=== PATIENT | female | born 1950 | race Caucasian/White ===

== ENCOUNTER → 2018-06-06 10:32 | Outpatient (BNVA) | payer MEDICARE, MEDICAID, SELFPAY | PROVIDERS: PCP Family Medicine; Referring Provider Family Medicine; Visit Provider Orthopaedic Surgery | DX: M70.61 Trochanteric bursitis, right hip (principal); M70.62 Trochanteric bursitis, left hip | CPT/HCPCS: 20610; 99211; 99212; J1040 ==

== ENCOUNTER 2018-06-07 12:35 | Outpatient (REF) | payer MEDICARE, MEDICAID, SELFPAY ==
[2018-06-07 20:07] LABS: HCT 41.1 % (36.0-46.0); HGB 13.5 g/dL (12.0-15.5); Mean Corp. HGB Concentration 32.8 g/dL (32.0-36.0); Mean Corpuscular Hemoglobin 28.9 pg (27.0-33.0); Mean Platelet Volume 10.5 fL (8.0-11.0); Platelet Count 286 x1000/uL (130-400); RBC 4.67 m/cumm (4.00-5.20); RBC Distribution Width 13.6 % (11.7-14.6); White Blood Cell Count 10.01 k/cumm (4.4-10.8)
[2018-06-07 20:18] LABS: ALT 31 U/L (12-78); AST 15 U/L (15-37); Albumin 3.3 g/dL (3.4-5.0); Alkaline Phosphatase 183 U/L (46-116); Anion Gap 9.3 mmol/L (3-11); BUN 19 mg/dL (7-18); Bilirubin, Total 0.5 mg/dL (0.2-1.0); CO2 30.7 mmol/L (21.0-32.0); CREATININE 1.11 mg/dL (0.55-1.02); Calcium 9.4 mg/dL (8.5-10.1); Chloride 98 mmol/L (98-107); Cholesterol 211 mg/dL (50-200); Estimated GFR 48.74 (mL/min/1.73m2); Glucose 376 mg/dL (70-100); HDL Cholesterol 49 mg/dL (40-60); LDL CHOLESTEROL 122 mg/dL (<100); Potassium 4.3 mmol/L (3.5-5.1); Sodium 138 mmol/L (136-145); Total Protein 6.9 g/dL (6.4-8.2); Triglyceride 281 mg/dL (30-150)
== END 2018-06-07 12:55 ==
LOC: NCHCN 12:35
PROVIDERS: PCP Family Medicine; Visit Provider Family Medicine
DX: E11.9 Type 2 diabetes mellitus without complications (principal); E78.5 Hyperlipidemia, unspecified; I10 Essential (primary) hypertension
CPT/HCPCS: 80053; 80061; 83721; 85027

== ENCOUNTER 2018-12-29 11:58 | Emergency (ER) | payer MEDICARE, MEDICAID, SELFPAY ==
[2018-12-29 12:00] VITALS: BP 143/101; PULSE 101; RESP 20; TEMP 36.1; O2SAT 96
[2018-12-29 12:11] VITALS: RESP 20
--- NOTE | 2018-12-29 12:35 | W.ED.GENAD ---
Discharge Plan Disposition Patient Disposition: HOME Condition: Good Discharge Details Chief Complaint: Anxiety Clinical Impression: Anxiety Primary Care Provider: Elke Jansen V ED Provider: Fouzia Aburto Home Meds and New Rx's Prescriptions: Continued furosemide [Lasix] 40 MG tablet 40 mg PO DAILY RF: 0 potassium chloride 10 MEQ capsule, extended release 20 meq PO DAILY RF: 0 glyburide 5 MG tablet 10 mg PO BID RF: 0 (DME) FreeStyle Test 1 EACH strip 1 ea Miscellaneous TID RF: 0 gabapentin [Neurontin] 300 MG capsule 600 mg PO QID RF: 0 albuterol sulfate 8.5 GM HFA aerosol inhaler 2 puff Inhalation Q4H PRN RF: 0 cholecalciferol (vitamin D3) 1,000 UNIT capsule 1,000 unit PO TID RF: 0 nystatin (bulk) 1 EACH powder 1 ea Miscellaneous TID RF: 0 (DME) lancets [FreeStyle Lancets] 1 EACH misc 1 ea Miscellaneous TID RF: 0 SPACER RF: 0 TEDS DAILY RF: 0 fexofenadine [Ellie Allergy] 180 MG tablet 180 mg PO DAILY RF: 0 (DME) Freestyle In[employer]x Test Strips 1 EACH strip 1 ea Miscellaneous TID RF: 0 DIABETIC SHOES RF: 0 losartan 50 mg Tablet 50 mg PO DAILY RF: 0 cyclobenzaprine 10 mg Tablet 10 mg PO TID PRNRF: 0 nortriptyline 10 mg Capsule 10 mg PO QHS RF: 0 omeprazole 20 mg Capsule,Delayed Release(Dr/Ec) 20 mg PO DAILY RF: 0 ibuprofen 600 mg Tablet 600 mg PO TID PRNRF: 0 escitalopram oxalate 20 mg Tablet 30 mg PO DAILY RF: 0 pregabalin [Lyrica] 150 mg Capsule 150 mg PO TID RF: 0 Lantus Solostar U-100 Insulin 100 unit/mL (3 mL) Insulin Pen 10 unit SUBCUT DAILY RF: 0 Tradjenta 5 mg Tablet 5 mg PO DAILY RF: 0 memantine [Namenda XR] 7 mg Capsule,Sprinkle,Er 24hr 7 mg PO DAILY RF: 0 lidocaine HCl [Lidocaine Plus] 4 % Cream 1 applic topical QID PRN PRNRF: 0 No Action lorazepam 0.5 mg Tablet 0.5 mg PO BID PRNRF: 0 Discharge Instructions Instructions: Anxiety (ED) Additional Instructions: Encourage hydration. Take your medications as previously prescribed by primary care physician. Please follow up with primary care this week for reevaluation and to discuss your medications and anxiety. Please call [facility] tomorrow to discuss counseling services further. You need to ask for help and support of your family. You need help to renew your license, get to upcoming appointments, have someone remind you of your medications daily. If you develop new/worsening symptoms please seek care urgently once again. Referrals: Elke Jansen MD [Primary Care Provider] - Medical Decision Making Patient is a 68 year old female, brought in via EMS, with c/c of anxiety. States she has had increased anxiety for quite some time, associates with becoming ill and going into assisted living home. Patient denies SI or HI. States that she is safe at home. Feels overwhelmed. Has 3 children that area ll teenage that she has adopted. Expresses concerns and stresses around all of these children. Feels well physically. Denies financial stressors. Reports good family support. 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 On exam, patient is tearing, appears anxious. She is obese but otherwise PE unremarkable. Patient given 1mg po ativan. Patient evaluated by MH. They advised counseling, she has not gone to counseling in several years. Have referred. Gave information for the [facility]. Family is here and is concerned that the patient has had increased confusion. Reviewed PCP notes, patient has not been seen since May. Family seems very supportive. MH, patient and I feel that she is safe for discharge home. However, family and patient was given strict instructions. Daughter plans to spend tomorrow with the patient to help arrange f/u with counselor, arrange f/u with PCP, contact the center [facility], review her medication dispensing box, set up method for the patient to remember her medications on a daily basis. I discussed with the patient that her medications would likely help greatly with her symptoms. She was given return precautions. Discharged home with her daughter. All of her questions and concerns were addressed, she is in agreement with this plan. HPI General Mode of arrival: EMS. Date/Time Provider Initiated Documentation: 12/29/18 12:19. Limitations to Documentation: no limitations. Information obtained by: patient, family, EMS and RN notes reviewed. HPI Narrative: Patient is a 68 year old female, brought in via EMS, with c/c of anxiety. EMS was initially called shortness of breath. Patient is female. She does endorse anxiety. Has known history of depression. She reports that her is currently missing care at [facility] for end-stage cancer. She has 3 teenage children that she has adopted. She describes a large amount of stress and anxiety around Caring for these children, 1 of whom is learning disabled and poor communication. She reports that the past few days, her anxiety has really increased. She denies any thoughts of self-harm. Reports feeling well physically at this time. Denies any chest pain. No shortness of breath. Denies any abdominal discomfort. No nausea vomiting. No change in bowel or bladder habits. Has not attempted to next visit historically, has not been hospitalized for this. Does state that she has not been taking her meds seems to be linked to her anxiety and affect. Related Data Home Medications Medication Instructions Recorded Confirmed FreeStyle Test strip 11/06/13 06/06/18 Spacer 11/06/13 06/06/18 Teds DAILY 11/06/13 06/06/18 albuterol sulfate 2 puff INHALATION Q4H PRN inhaler 11/06/13 12/29/18 cholecalciferol (vitamin D3) 1,000 unit PO TID 11/06/13 12/29/18 furosemide [Lasix] 40 mg PO DAILY tab-cap 11/06/13 12/29/18 gabapentin [Neurontin] 600 mg PO QID tab-cap 11/06/13 12/29/18 glyburide 10 mg PO BID tab-cap 11/06/13 12/29/18 lancets [FreeStyle Lancets] ea 11/06/13 06/06/18 nystatin (bulk) 1 ea MISCELLANEOUS TID 11/06/13 12/29/18 potassium chloride 20 meq PO DAILY tab-cap 11/06/13 12/29/18 Diabetic Shoes 06/09/14 06/06/18 Freestyle InsuLinx Test Strips strip 06/09/14 06/06/18 fexofenadine [Ellie Allergy] 180 mg PO DAILY tab-cap 06/09/14 12/29/18 Lantus Solostar U-100 Insulin 10 unit SUBCUT DAILY 12/29/18 12/29/18 Tradjenta 5 mg PO DAILY 12/29/18 12/29/18 cyclobenzaprine 10 mg PO TID PRN 12/29/18 12/29/18 escitalopram oxalate 30 mg PO DAILY 12/29/18 12/29/18 ibuprofen 600 mg PO TID PRN 12/29/18 12/29/18 lidocaine HCl [Lidocaine Plus] 1 applic TOPICAL QID PRN PRN 12/29/18 12/29/18 lorazepam 0.5 mg PO BID PRN 12/29/18 12/29/18 losartan 50 mg PO DAILY 12/29/18 12/29/18 memantine [Namenda XR] 7 mg PO DAILY 12/29/18 12/29/18 nortriptyline 10 mg PO QHS 12/29/18 12/29/18 omeprazole 20 mg PO DAILY 12/29/18 12/29/18 pregabalin [Lyrica] 150 mg PO TID 12/29/18 12/29/18 Allergies Allergy/AdvReac Type Severity Reaction Status Date / Time allopurinol Allergy Severe Rash and Unverified 12/29/18 12:14 SOB aspirin Allergy Severe Anaphylaxsi Unverified 12/29/18 12:14 s colchicine AdvReac Intermediate Elevated Unverified 12/29/18 12:14 creatinine metformin AdvReac Intermediate Elevated Unverified 12/29/18 12:14 creatinine General Stated Complaint: Anxiety DEL: 3 Review of Systems Constitutional Constitutional: Reports as per HPI, Denies chills, Denies fatigue, Denies fever(s), Denies headache(s) and Denies weakness Eyes Eyes: Denies change in vision ENT Ears, Nose, Mouth, and Throat: Denies headache(s) Cardiovascular Cardiovascular: Reports as per HPI, Denies chest pain, Denies lightheadedness, Denies dyspnea and Denies dyspnea on exertion Respiratory Respiratory: Reports as per HPI, Denies cough, Denies dyspnea and Denies dyspnea on exertion Gastrointestinal Gastrointestinal: Reports as per HPI, Denies abdominal pain, Denies change in bowel habits, Denies nausea and Denies vomiting Musculoskeletal Musculoskeletal: Denies abnormal gait Integumentary/Breasts Skin/Breast: Reports as per HPI and Denies rash Neurologic Neurologic: Denies abnormal movements, Denies abnormal speech, Denies abnormal gait, Denies headache(s), Denies paresthesias and Denies weakness Psychiatric Psychiatric: Reports as per HPI, Reports abnormal sleep pattern, Reports anxiety, Reports depression, Reports difficulty concentrating, Reports mood swings, Reports panic attacks, Denies hallucinations, Denies homicidal ideation and Denies suicidal ideation Endocrine Endocrine: Denies fatigue [facility] Social History Smoking/Tobacco Use Status: Former Tobacco Use Alcohol Intake: never Drug use: Never Do you feel safe at home: Yes Do you feel safe in your relationship?: Yes Additional Social history: per EMS--meds at home are in a container for the month---sporatic empty slots-not in order---Med list includes Insulin which she states she does not take--niece states there is a new pen in her fridge. Exam Const General: cooperative, healthy appearing, comfortable, no acute distress, well developed and well groomed Nutritional Appearance: well nourished and obese Orientation: alert and awake Eyes General: appearance normal, both eyes and all related structures Resp Effort & Inspection: normal respiratory effort, able to speak in complete sentences and no respiratory distress Auscultation: clear to auscultation bilaterally, no rales, no rhonchi and no wheezes Cardio Rate: regular rate Rhythm: regular rhythm Heart Sounds: S1 normal and S2 normal Skin General skin exam: no rashes or lesions noted Trauma: no lacerations or abrasions Neuro General: alert and awake Cognition: normal cognition Speech: speech normal Gait: normal gait Psych Appearance: grossly normal and disheveled Mental Status: mental status grossly normal Speech and Movement: speech and movement normal Mood: anxious mood Affect: labile affect, sad and anxious affect Attitude: cooperative Thought Process: circumstantial (Focusing on her and children) Thought Content: normal Insight: fair Judgment: fair Course Vital Signs Vital signs: Vital Signs Temperature 36.1 C L 12/29/18 12:00 Pulse 101 H 12/29/18 12:00 Respiratory Rate 20 12/29/18 12:00 Blood Pressure 143/101 H 12/29/18 12:00 Pulse Oximetry 96 12/29/18 12:00 Temperature 36.1 C L 12/29/18 12:00 Temperature Source Temporal Artery Scan 12/29/18 12:00 Pulse 101 H 12/29/18 12:00 Respiratory Rate 20 12/29/18 12:11 Respiratory Effort Non-Labored 12/29/18 12:11 Respiratory Depth Normal 12/29/18 12:11 Respiratory Pattern Normal 12/29/18 12:11 Blood Pressure 143/101 H 12/29/18 12:00 Blood Pressure Position Sitting 12/29/18 12:00 Pulse Oximetry 96 12/29/18 12:00 Oxygen Delivery Method Room Air 12/29/18 12:00 Oxygen Flow Rate 0 12/29/18 12:00
[2018-12-29] MEDS: LORazepam 1 MG TAB PO (13:07)
[2018-12-29 13:30] VITALS: BP 160/100; PULSE 98; O2SAT 95
--- NOTE | 2018-12-29 14:22 | PDOC.MHCN ---
Date of service: 12/29/18 Time of Service: 14:22 Mental Health Crisis Note Presenting Issue How did you arrive at the ED and why did you come: Patient arrives to [facility] ED with chief complaint of anxiety. Precipitating Factors Patient is a 68yo female that resides in home with children. She reports experiencing elevated mixed anxiety and depressive symptoms over the past several weeks and advises that these issues primarily revolve around general life stressors associated with the prospect of losing her who is dying of cancer. She denies current suicidal ideation, intent or plan. Rx / PCP / other relevant hx: Currently sees a PCP at [facility]. Does not attend counseling. No reported history of self-harm attempts or in-patient hospitalizations. Based on presentation and reported history, severity / risk is estimated to be non-emergent / low. There is evidence of poor self-maintenance but otherwise no indicators that convey an imminent threat to self or others. The patient advises that she has an extensive family support system and that safety is not an issue for the time being. It is recommended that patient conduct a medication review with her PCP for anxiety/depression issues and that a counseling arrangement may be beneficial. Disposition BEHAVIOR: Appropriate in all interactions EYE CONTACT: Good MOOD: Mildly anxious / depressed AFFECT: Congruent to mood APPETITE: No reported issues SLEEP(trouble falling/staying asleep: No reported issues Plan Patient will be discharged under her own accord with following plan: 1. In-house referral for counseling at [facility] will be submitted. 2. Information: A printed listing of counseling services was provided in addition to contact information for [facility] for possible extended support services (e.g. fuel/food/transportation/case management). [facility] emergency contact information was provided and patient will contact as needed should she feel overwhelmed by stress/axiety-related issues. 3. Patient will consult with her PCP for medication review and to discuss possible medication options for treating anxiety/depression issues. Signature Clinician's Name/Title: Tony Bhatti BA, [facility] Emergency Clinician
[2018-12-29 14:52] VITALS: BP 162/124; PULSE 106; O2SAT 96
[2018-12-29 15:04] VITALS: BP 162/124; PULSE 106; RESP 20; TEMP 36.1; O2SAT 96
== END 2018-12-29 14:58 | disposition home or self-care (01) ==
PROVIDERS: Emergency Provider Physician Assistant; PCP Family Medicine
DX: F41.8 Other specified anxiety disorders (principal); Z63.79 Other stressful life events affecting family and household
CPT/HCPCS: 99284

== ENCOUNTER 2019-09-12 17:01 | Inpatient (IN) | payer MEDICARE, MEDICAID, SELFPAY ==
[2019-09-12] VITALS (28 sets, daily range): BP systolic 91–139; BP diastolic 47–86; PULSE 100–170; RESP 11–33; TEMP 37.4; O2SAT 90–96
--- NOTE | 2019-09-12 17:18 | ED.GENADUL_ITS ---
Discharge Plan Disposition Patient Disposition: [facility] INPATIENT Condition: Serious Discharge Details Chief Complaint: Abd Prob Clinical Impression: Acute UTI, Pneumonia Primary Care Provider: Elke Jansen V ED Provider: Richar Canales Home Meds and New Rx's Prescriptions: No Action furosemide [Lasix] 40 MG tablet 40 mg PO DAILY RF: 0 potassium chloride 10 MEQ capsule, extended release 20 meq PO DAILY RF: 0 glyburide 5 MG tablet 10 mg PO BID RF: 0 (DME) FreeStyle Test 1 EACH strip 1 ea Miscellaneous TID RF: 0 gabapentin [Neurontin] 300 MG capsule 600 mg PO BID RF: 0 albuterol sulfate 8.5 GM HFA aerosol inhaler 2 puff Inhalation Q4H PRN RF: 0 cholecalciferol (vitamin D3) 1,000 UNIT capsule 1,000 unit PO TID RF: 0 nystatin (bulk) 1 EACH powder 1 ea Miscellaneous TID RF: 0 (DME) lancets [FreeStyle Lancets] 1 EACH misc 1 ea Miscellaneous TID RF: 0 SPACER RF: 0 TEDS DAILY RF: 0 fexofenadine [Ellie Allergy] 180 MG tablet 180 mg PO DAILY RF: 0 (DME) Freestyle Insu[employer]x Test Strips 1 EACH strip 1 ea Miscellaneous TID RF: 0 DIABETIC SHOES RF: 0 losartan 50 mg Tablet 50 mg PO DAILY RF: 0 cyclobenzaprine 10 mg Tablet 10 mg PO TID PRNRF: 0 nortriptyline 10 mg Capsule 10 mg PO QHS RF: 0 omeprazole 20 mg Capsule,Delayed Release(Dr/Ec) 20 mg PO DAILY RF: 0 ibuprofen 600 mg Tablet 600 mg PO TID PRNRF: 0 escitalopram oxalate 20 mg Tablet 20 mg PO DAILY RF: 0 pregabalin [Lyrica] 150 mg Capsule 150 mg PO TID RF: 0 Lantus Solostar U-100 Insulin 100 unit/mL (3 mL) Insulin Pen 10 unit SUBCUT DAILY RF: 0 Tradjenta 5 mg Tablet 5 mg PO DAILY RF: 0 memantine [Namenda XR] 7 mg Capsule,Sprinkle,Er 24hr 7 mg PO DAILY RF: 0 lidocaine HCl [Lidocaine Plus] 4 % Cream 1 applic topical QID PRN PRNRF: 0 lorazepam 0.5 mg Tablet 0.5 mg PO BID PRNRF: 0 Medical Decision Making 69-year-old female with history of diabetes, GERD, hypertension, COPD, presents for generalized weakness, lower abdominal pain and dysuria. She presents with soft blood pressures, mild tachycardia. She does have reproducible lower abdominal discomfort but certainly nonsurgical at this point. Will obtain a septic work-up, obtain to IVs, give 2 L IV fluid, and as soon as blood cultures are obtained give 2 g IV Rocephin. Laboratory values reveal a white count of 20.12 hemoglobin 12.7 hematocrit 37.7 platelet count 241. Absolute neutrophils 18.23 sodium 134 potassium 3.2 creatinine 1.5 with estimated GFR of 34.33 renal function appears to be near baseline. Glucose of 210. Magnesium 1.5. Lipase 41. Lactate of 1.4. Procalcitonin 6.1 urinalysis reveals white blood cells greater than 50, small leuk esterase. Blood cultures and urine culture both pending. Patient remains with mild tachycardia and soft blood pressures although trending upward to 109/70. White count of over 20, UTI, x-ray suspicious of left lower lobe pneumonia. Patient is certainly presenting with what appears to be early sepsis. She has 2 IVs established, receiving 2 L IV fluid. I discussed the case with both patient and her daughter Sissy. Expressed my concern given her status. She would prefer to go home, I explained to her that I did not believe this to be a good idea and that she would need to leave AMA. I tried to speak very candidly with her regarding the gravity of the situation. After multiple discussions both with patient, patient's daughter, having patient's RN speak with both patient and family, she decided to be admitted. I discussed the case with our hospitalist team for admission. Will replenish both potassium and magnesium and add on 100 IV doxycycline. Medical Records Medical records reviewed: Yes I reviewed the patient's medical records. Imaging Data Radiologic Study: Attestation: I personally reviewed and interpreted this imaging study as follows: Imaging: X-Ray Radiologist's impression: Suspicious for left lower lobe pneumonia Lab Data Lab results reviewed: Yes I reviewed the patient's lab results. Lab results narrative: 09/12/19 20:00 Blood Blood Culture - Pending 09/12/19 18:30 Urine - Reflex from Ua Urine Culture - Pending 09/12/19 19:41 Blood Blood Culture - Pending Laboratory Tests Range/Units 09/12/19 09/12/19 09/12/19 17:53 17:53 17:53 WBC (4.4-10.8) 10^3/uL 20.12 H RBC (3.93-5.22) 10^6/uL 4.34 Hgb (11.2-15.7) g/dL 12.7 Hct (36.0-46.0) % 37.7 MCV (80-95) fL 86.9 MCH (27.0-33.0) pg 29.3 MCHC (32.0-36.0) % 33.7 RDW (11.7-14.6) % 13.7 Plt Count (130-400) 10^3/uL 241 MPV (8.0-11.0) fL 9.7 Immature Gran % 0.7 Neutrophils % 90.6 Lymphocytes % 4.0 Monocytes % 4.6 Eosinophils % 0.0 Basophils % 0.1 Absolute Neutrophils (1.2-6.7) 10^3/uL 18.23 H Absolute Lymphocytes (1.2-3.4) 10^3/uL 0.80 L Absolute Monocytes (0.1-0.8) 10^3/uL 0.93 H Absolute Eosinophils (0.0-0.7) 10^3/uL 0.00 Absolute Basophils (0.0-0.2) 10^3/uL 0.02 PT (9.3-11.0) sec 11.0 INR (0.9-1.1) 1.1 Sodium (136-145) mmol/L 134 L Potassium (3.5-5.1) mmol/L 3.2 L Chloride (98-107) mmol/L 96 L Carbon Dioxide (21.0-32.0) mmol/L 27.4 Anion Gap (3-11) mmol/L 10.6 BUN (7-18) mg/dL 21 H Creatinine (0.55-1.02) mg/dL 1.50 H Estimated GFR/1.73 m2 (mL/min/1.73m2) 34.33 Glucose (74-106) mg/dL 210 H Lactate (0.6-1.4) mmol/L Calcium (8.5-10.1) mg/dL 9.2 Magnesium (1.8-2.4) mg/dL Total Bilirubin (0.2-1.0) mg/dL 1.8 H AST (15-37) U/L 21 ALT (14-59) U/L 25 Alkaline Phosphatase (46-116) U/L 160 H Total Protein (6.4-8.2) g/dL 7.0 Albumin (3.4-5.0) g/dL 2.5 L Lipase (73-393) U/L 41 Procalcitonin ng/mL Urine Color (Yellow) Urine Clarity (Clear) Urine pH (5-8) Ur Specific [place] (1.005-1.025) Urine Protein (Negative) mg/dL Urine Ketones (Negative) mg/dL Urine Blood (Negative) Urine Nitrite (Negative) Urine Bilirubin (Negative) Urine Urobilinogen (Up TO 0.2) EU/dL Ur Leukocyte Esterase (Negative) Urine RBC (0-2) HPF Urine WBC (0-5) HPF Ur Epithelial Cells (Negative) HPF Urine Crystals (Negative) HPF Urine Bacteria (Negative) HPF Urine Casts (Negative) LPF Urine Mucus (Negative) Ur Culture Indicated? Urine Glucose (Negative) mg/dL Range/Units 09/12/19 09/12/19 09/12/19 18:30 19:41 19:41 WBC (4.4-10.8) 10^3/uL RBC (3.93-5.22) 10^6/uL Hgb (11.2-15.7) g/dL Hct (36.0-46.0) % MCV (80-95) fL MCH (27.0-33.0) pg MCHC (32.0-36.0) % RDW (11.7-14.6) % Plt Count (130-400) 10^3/uL MPV (8.0-11.0) fL Immature Gran % Neutrophils % Lymphocytes % Monocytes % Eosinophils % Basophils % Absolute Neutrophils (1.2-6.7) 10^3/uL Absolute Lymphocytes (1.2-3.4) 10^3/uL Absolute Monocytes (0.1-0.8) 10^3/uL Absolute Eosinophils (0.0-0.7) 10^3/uL Absolute Basophils (0.0-0.2) 10^3/uL PT (9.3-11.0) sec INR (0.9-1.1) Sodium (136-145) mmol/L Potassium (3.5-5.1) mmol/L Chloride (98-107) mmol/L Carbon Dioxide (21.0-32.0) mmol/L Anion Gap (3-11) mmol/L BUN (7-18) mg/dL Creatinine (0.55-1.02) mg/dL Estimated GFR/1.73 m2 (mL/min/1.73m2) Glucose (74-106) mg/dL Lactate (0.6-1.4) mmol/L 1.4 Calcium (8.5-10.1) mg/dL Magnesium (1.8-2.4) mg/dL 1.5 L Total Bilirubin (0.2-1.0) mg/dL AST (15-37) U/L ALT (14-59) U/L Alkaline Phosphatase (46-116) U/L Total Protein (6.4-8.2) g/dL Albumin (3.4-5.0) g/dL Lipase (73-393) U/L Procalcitonin ng/mL 6.1 Urine Color (Yellow) Cannon Urine Clarity (Clear) Sl cloudy Urine pH (5-8) 6.0 Ur Specific [place] (1.005-1.025) >= 1.030 H Urine Protein (Negative) mg/dL 100 H Urine Ketones (Negative) mg/dL Trace H Urine Blood (Negative) Trace-lysed H Urine Nitrite (Negative) Negative Urine Bilirubin (Negative) Small H Urine Urobilinogen (Up TO 0.2) EU/dL 1.0 H Ur Leukocyte Esterase (Negative) Small H Urine RBC (0-2) HPF 3-5 H Urine WBC (0-5) HPF >50 H Ur Epithelial Cells (Negative) HPF Moderate Urine Crystals (Negative) HPF Moderate amorphous Urine Bacteria (Negative) HPF Moderate Urine Casts (Negative) LPF 10-20 hyaline Urine Mucus (Negative) Negative Ur Culture Indicated? Yes Urine Glucose (Negative) mg/dL Negative HPI General Mode of arrival: EMS . Date/Time Provider Initiated Documentation: 09/12/19 17:08 . Limitations to Documentation: no limitations . Information obtained by: patient, family and EMS . HPI Narrative: This is a 69-year-old female with history of COPD, diabetes, hypertension, GERD, presents to the ER via EMS. She reports generalized weakness and lower abdominal pain with mild dysuria for the past several days. She is a current smoker. She tends to downplay her symptoms during my evaluation and she makes it very clear to me that she would like to go home. I was able to speak with her daughter Sissy on the phone whom she lives with. Sissy reports that the weakness has been so severe that she has been having difficulty getting around the house using her cane and she has had very little intake over the past few days. Patient denies fever, headache, chest pain, shortness of breath, vomiting. Reports mild nausea. Denies dysuria, diarrhea, constipation, numbness, tingling, weakness. She does report some chronic back pain that is unchanged. She denies recent illness or sick contacts. Denies recent travel. Related Data Home Medications Medication Instructions Recorded Confirmed FreeStyle Test strip 11/06/13 06/06/18 Spacer 11/06/13 06/06/18 Teds DAILY 11/06/13 06/06/18 albuterol sulfate 2 puff INHALATION Q4H PRN inhaler 11/06/13 12/29/18 cholecalciferol (vitamin D3) 1,000 unit PO TID 11/06/13 09/12/19 furosemide [Lasix] 40 mg PO DAILY tab-cap 11/06/13 09/12/19 gabapentin [Neurontin] 600 mg PO BID tab-cap 11/06/13 09/12/19 glyburide 10 mg PO BID tab-cap 11/06/13 09/12/19 lancets [FreeStyle Lancets] ea 11/06/13 06/06/18 nystatin (bulk) 1 ea MISCELLANEOUS TID 11/06/13 09/12/19 potassium chloride 20 meq PO DAILY tab-cap 11/06/13 09/12/19 Diabetic Shoes 06/09/14 06/06/18 Freestyle In[employer]x Test Strips strip 06/09/14 06/06/18 fexofenadine [Ellie Allergy] 180 mg PO DAILY tab-cap 06/09/14 12/29/18 Lantus Solostar U-100 Insulin 10 unit SUBCUT DAILY 12/29/18 12/29/18 Tradjenta 5 mg PO DAILY 12/29/18 09/12/19 cyclobenzaprine 10 mg PO TID PRN 12/29/18 09/12/19 escitalopram oxalate 20 mg PO DAILY 12/29/18 09/12/19 ibuprofen 600 mg PO TID PRN 12/29/18 09/12/19 lidocaine HCl [Lidocaine Plus] 1 applic TOPICAL QID PRN PRN 12/29/18 12/29/18 lorazepam 0.5 mg PO BID PRN 12/29/18 12/29/18 losartan 50 mg PO DAILY 12/29/18 09/12/19 memantine [Namenda XR] 7 mg PO DAILY 12/29/18 09/12/19 nortriptyline 10 mg PO QHS 12/29/18 09/12/19 omeprazole 20 mg PO DAILY 12/29/18 09/12/19 pregabalin [Lyrica] 150 mg PO TID 12/29/18 12/29/18 Allergies Allergy/AdvReac Type Severity Reaction Status Date / Time allopurinol Allergy Severe Rash and Unverified 12/29/18 12:14 SOB aspirin Allergy Severe Anaphylaxsi Unverified 12/29/18 12:14 s colchicine AdvReac Intermediate Elevated Unverified 12/29/18 12:14 creatinine metformin AdvReac Intermediate Elevated Unverified 12/29/18 12:14 creatinine General Stated Complaint: Abd Prob DEL: 3 Review of Systems Constitutional Constitutional: Reports fatigue, Denies fever(s) and Reports weakness (Generalized) Eyes Eyes: Denies change in vision ENT Ears, Nose, Mouth, and Throat: Denies neck pain and Denies sore throat Cardiovascular Cardiovascular: Denies chest pain and Denies dyspnea Respiratory Respiratory: Denies cough, Denies dyspnea and Denies wheezing Gastrointestinal Gastrointestinal: Reports abdominal pain, Denies diarrhea, Reports nausea and Denies vomiting Genitourinary Genitourinary: Denies hematuria and Reports dysuria Musculoskeletal Musculoskeletal: Reports back pain, Denies neck pain, Denies numbness and Denies tingling Integumentary/Breasts Skin/Breast: Denies rash Neurologic Neurologic: Denies numbness, Denies tingling and Reports weakness (Generalized) Endocrine Endocrine: Reports fatigue Allergic/Immunologic Allergic/Immunologic: Denies wheezing [facility], [facility] Social History Smoking/Tobacco Use Status: Former Tobacco Use Alcohol Intake: never Drug use: Never Do you feel safe at home: Yes Do you feel safe in your relationship?: Yes Additional Social history: per EMS--meds at home are in a container for the month---sporatic empty slots-not in order---Med list includes Insulin which she states she does not take--niece states there is a new pen in her fridge. Exam Const General: cooperative, comfortable and in distress mild Orientation: alert, awake and oriented x3 [facility] Head: normal to inspection, normocephalic and atraumatic Mouth: moist mucous membranes Throat: posterior oropharynx normal Eyes Conjunctivae: conjunctivae normal Sclera: sclerae normal Neck Neck: normal visual inspection, full ROM, no meningeal signs, trachea midline, supple and nontender Resp Effort & Inspection: normal respiratory effort and able to speak in complete sentences Auscultation: diminished lung sounds bilaterally in the lower lung bruner and wheezes expiratory wheezes (Scattered, diffusely, mostly clear with cough) Cardio Rate: tachycardic (104) Rhythm: regular rhythm GI Inspection: normal to inspection Palpation: soft, not firm, no guarding, not rigid and tender suprapubicly; with no rebound tenderness Auscultation: normal bowel sounds Back/Spine/Pelvis Back: back tenderness (Diffuse mild lumbar) Skin Other: Elenita-like rash under the breasts and in the groin. Neuro General: patient alert, patient awake, patient oriented x3, moves all extremities and no focal motor deficits Speech: speech normal Motor: muscle tone normal throughout and strength 5/5 throughout Sensory Exam: no sensory deficits noted Extrem General: normal to inspection, full ROM and capillary refill normal Psych Appearance: grossly normal Mental Status: mental status grossly normal Course Vital Signs Vital signs: Vital Signs Temperature 37.4 C 09/12/19 16:56 Pulse 118 H 09/12/19 16:56 Respiratory Rate 09/12/19 16:56 Blood Pressure 126/53 L 09/12/19 16:56 Pulse Oximetry 92 L 09/12/19 16:56 Temperature 37.4 C 09/12/19 16:56 Temperature Source Skin 09/12/19 16:56 Pulse 118 H 09/12/19 16:56 Respiratory Rate 20 09/12/19 16:56 Respiratory Effort Non-Labored 09/12/19 17:03 Blood Pressure 126/53 L 09/12/19 16:56 Pulse Oximetry 92 L 09/12/19 16:56 Oxygen Delivery Method Room Air 09/12/19 16:56 Oxygen Flow Rate 0 09/12/19 16:56 Pain Level 10 09/12/19 16:56 Critical Care Time Critical Care Time Critical Care Time: Yes Total Critical Care Time: 35 Attestation: Upon my evaluation, this patient had a high probability of clinically significant, life-threatening deterioration due to their current medical conditions, which required my direct attention, intervention, and personal management. I have personally provided greater than 30 minutes of critical care time exclusive of the time spend on separately billable procedures. Time includes obtaining a history, examining the patient, pulse oximetry, review of laboratory data, radiology results, discussion with consultants, arranging urgent treatment with development of a management plan, evaluation of patient's response to treatment, and monitoring for potential decompensation. Interventions were performed as documented above.
[2019-09-12 18:05] LABS: Abs Immature Grans 0.15 10^3/uL (0.0-0.06); Absolute Basophil Count 0.02 10^3/uL (0.0-0.2); Basophils % 0.1; HCT 37.7 % (36.0-46.0); HGB 12.7 g/dL (11.2-15.7); Immature Grans % 0.7; MCH 29.3 pg (27.0-33.0); MCHC 33.7 % (32.0-36.0); MCV 86.9 fL (80-95); MPV 9.7 fL (8.0-11.0); Monocytes % 4.6; Neutrophils % 90.6; Platelet Count 241 10^3/uL (130-400); RBC 4.34 10^6/uL (3.93-5.22); RDW 13.7 % (11.7-14.6); RDW-SD 43.9 fL; WBC 20.12 10^3/uL (4.4-10.8)
[2019-09-12 18:07] LABS: Absolute Monocyte Count 0.93 10^3/uL (0.1-0.8); Absolute Neutrophil Count 18.23 10^3/uL (1.2-6.7)
[2019-09-12] MEDS: Normal Saline 1,000 ML 1000 ML IV ×2 (18:13→19:50)
[2019-09-12] MEDS: Ondansetron 4 MG/2 ML VIAL IVP (18:13)
[2019-09-12 18:16] LABS: INR 1.1 (0.9-1.1)
[2019-09-12 18:22] LABS: ALT 25 U/L (14-59); AST 21 U/L (15-37); Albumin 2.5 g/dL (3.4-5.0); Alkaline Phosphatase 160 U/L (46-116); Anion Gap 10.6 mmol/L (3-11); BUN 21 mg/dL (7-18); Bilirubin, Total 1.8 mg/dL (0.2-1.0); CO2 27.4 mmol/L (21.0-32.0); Calcium 9.2 mg/dL (8.5-10.1); Chloride 96 mmol/L (98-107); Estimated GFR 34.33 (mL/min/1.73m2); Glucose 210 mg/dL (74-106); Lipase 41 U/L (73-393); Potassium 3.2 mmol/L (3.5-5.1); Sodium 134 mmol/L (136-145)
[2019-09-12 19:07] LABS: Bilirubin Small (Negative); Blood Trace-lysed (Negative); Clarity Sl Cloudy (Clear); Glucose Negative (Negative); Ketones Trace mg/dL (Negative); Leukocyte Esterase Small (Negative); Nitrite Negative (Negative); Specific Gravity >= 1.030 (1.005-1.025)
[2019-09-12 19:47] LABS: Bacteria Moderate HPF (Negative); C & S Indicated? Yes; Casts 10-20 Hyaline LPF (Negative); Crystals Moderate Amorphous HPF (Negative); Epithelial Cells Moderate HPF (Negative); Mucus Negative (Negative); WBC >50 HPF (0-5)
[2019-09-12 19:59] LABS: Lactate 1.4 mmol/L (0.6-1.4)
--- NOTE | 2019-09-12 20:21 | DI.RAD_ITS ---
EXAM: XR CHEST 2V PA LATERAL CLINICAL HISTORY: weakness, wbc 20 TECHNIQUE: COMPARISON: CR CHEST 2 VIEWS PA,LAT from 01/18/2015 FINDINGS: The heart is not enlarged. There is dense consolidation involving portions of the left lower lobe po steriorly. Otherwise lungs are clear. No pleural effusion. IMPRESSION: No pneumothorax. Dense lower lobe consolidation on the left, follow-up radiographs requested to exclude underlying paula plastic disease but the findings are most likely due to pneumonia.
--- NOTE | 2019-09-12 20:28 | DI.VRAD_ITS ---
PROCEDURE INFORMATION: Exam: XR Chest, 2 Views Exam date and time: 09/12/2019 8:12 PM Age: 69 years old Clinical indication: Other: Weakness TECHNIQUE: Imaging protocol: XR of the chest Views: 2 views. COMPARISON: CR CHEST 2 VIEWS PA,LAT 01/18/2015 1:18 PM FINDINGS: Lungs: Opacity over the left lower lung, cannot rule out airspace disease. Right lung is clear. Pleural space: Unremarkable. No pleural effusion. No pneumothorax. Heart/Mediastinum: Unremarkable. No cardiomegaly. Bones/joints: Unremarkable. Intraperitoneal space: Surgical clip in the right upper quadrant, possibly post cholecystectomy. IMPRESSION: Opacity over the left lower lung, cannot rule out left lower lobe infiltrate. The remainder of the lungs clear. Dictated and Authenticated by: Esteban Mccormick MD. Ordering:KALPANA Mcqueen MD
[2019-09-12] MEDS: cefTRIAXone 2 GM/50 ML BAG IVPB (20:35)
[2019-09-12 20:42] LABS: Procalcitonin 6.1 ng/mL
[2019-09-12 21:54] LABS: Magnesium 1.5 mg/dL (1.8-2.4)
[2019-09-12] MEDS: DOXYCYCLINE 100 MG in Normal Saline 100 ML IVPB (22:39)
--- NOTE | 2019-09-12 22:47 | NUR.NOTE ---
Nursing Note: at approx 2140, pt attempted to leave AMA- got dressed and tried to take off her lines and VS equipment. In doing so, RAC IV was infiltrated. Subsequently d/c'd. Pt refuses another IV at this time, has working right wrist #[id number]. Provider aware. Spoke with daughter Sissy who supports pt to stay in hospital and get treatment needed. Pt not happy about her choice to stay, but does so willingly. Provider aware.
--- NOTE | 2019-09-12 22:49 | NUR.NOTE ---
Nursing Note: Doxycycline administered through right wrist IV, after speaking with provider about necessity and timing of meds ordered, since pt has refused second IV. Provider agrees with ABX first, then repletion of electrolytes.
--- NOTE | 2019-09-12 23:56 | HPE_ITS ---
Date of service: 09/12/19 Time of Service: 23:56 Assessment and Plan Assessment and plan (1) SIRS (systemic inflammatory response syndrome): Start date: 09/12/19 Status: Acute Assessment and plan: This is a 69-year-old lady presenting with UTI and probable pneumonia saw blood pressure, tachycardia and elevated WBCs consistent with systemic inflammatory spine syndrome. She has responded to IV fluid resuscitation and treatment of infection. We will continue the same overnight. She is a full code. (2) Acute UTI: Start date: 09/12/19 Status: Acute Assessment and plan: IV Rocephin with increased IV hydration. Patient appears slightly dehydrated. Follow-up on urine culture and adjust antibiotic therapy accordingly. (3) Pneumonia: Start date: 09/12/19 Status: Acute Assessment and plan: Patient has minimal symptoms but positive imaging. Doxycycline will be added to her medical regimen. Respiratory meds as needed. Qualifiers: Pneumonia type: due to unspecified organism Laterality: left Lung location: lower lobe of lung Qualified Code(s): J18.9 - Pneumonia, unspecified organism (4) Electrolyte abnormality: Start date: 09/12/19 Status: Acute Assessment and plan: IV correction of electrolyte normalities as we continue hydration. Follow-up labs in the morning. (5) Diabetes mellitus: Status: Chronic Assessment and plan: Hold oral therapy with before meals and at bedtime glucometers giving shortening insulin coverage as needed. Hold basal insulin as well. Qualifiers: Diabetes mellitus type: type 2 Diabetes mellitus group home insulin use: with group home use Diabetes mellitus complication status: with kidney complications Diabetes mellitus complication detail: with chronic kidney disease Chronic kidney disease stage: stage 3 (moderate) Qualified Code(s): E11.22 - Type 2 diabetes mellitus with diabetic chronic kidney disease; N18.3 - Chronic kidney disease, stage 3 (moderate); Z79.4 - intermediate accountant (current) use of insulin History of Present Illness History of Present Illness Chief Complaint: Generalized weakness with lower abdominal pain and dysuria Narrative: This is a 69-year-old he with multiple medical problems including COPD, diabetes and hypertension who reported to the ED with 4 days of generalized weakness with abdominal pressure and dysuria. In the ED she had tachycardia with an elevated WBC but no fever and no tachypnea. Her blood pressure was slightly decreased early on but responded to IV hydration. She was found to have a UTI and possible left lower lobe pneumonia and admitted for treatment of both. She also needed IV electrolyte correction with apparent chronic CKD associated with her diabetes. She has mild dementia and the first was refusing to stay for treatment but eventually agreed to admission. She is obese with chronic intertriginous candidiasis did not appear to be very active. Patient was minimally conversant during my interview. Review of Systems Narrative: 13 point review of systems otherwise unrevealing and as per ED. Patient is a poor historian. She states that she may have had a nonproductive cough for the last couple days. [facility] Social History Smoking/Tobacco Use Status: Former Tobacco Use Alcohol Intake: never Drug use: Never Do you feel safe at home: Yes Do you feel safe in your relationship?: Yes Additional Social history: per EMS--meds at home are in a container for the month---sporatic empty slots-not in order---Med list includes Insulin which she states she does not take--niece states there is a new pen in her fridge. Meds Home Medications and Allergies Home Medications Medication Instructions Recorded Confirmed Type FreeStyle Test strip 11/06/13 06/06/18 History Spacer 11/06/13 06/06/18 History Teds DAILY 11/06/13 06/06/18 History albuterol sulfate 2 puff INHALATION Q4H PRN inhaler 11/06/13 12/29/18 History cholecalciferol (vitamin D3) 1,000 unit PO TID 11/06/13 09/12/19 History furosemide [Lasix] 40 mg PO DAILY tab-cap 11/06/13 09/12/19 History gabapentin [Neurontin] 600 mg PO BID tab-cap 11/06/13 09/12/19 History glyburide 10 mg PO BID tab-cap 11/06/13 09/12/19 History lancets [FreeStyle Lancets] ea 11/06/13 06/06/18 History nystatin (bulk) 1 ea MISCELLANEOUS TID 11/06/13 09/12/19 History potassium chloride 20 meq PO DAILY tab-cap 11/06/13 09/12/19 History Diabetic Shoes 06/09/14 06/06/18 History Freestyle InsuLinx Test Strips strip 06/09/14 06/06/18 History fexofenadine [Ellie Allergy] 180 mg PO DAILY tab-cap 06/09/14 12/29/18 History Lantus Solostar U-100 Insulin 10 unit SUBCUT DAILY 12/29/18 12/29/18 History Tradjenta 5 mg PO DAILY 12/29/18 09/12/19 History cyclobenzaprine 10 mg PO TID PRN 12/29/18 09/12/19 History escitalopram oxalate 20 mg PO DAILY 12/29/18 09/12/19 History ibuprofen 600 mg PO TID PRN 12/29/18 09/12/19 History lidocaine HCl [Lidocaine Plus] 1 applic TOPICAL QID PRN PRN 12/29/18 12/29/18 History lorazepam 0.5 mg PO BID PRN 12/29/18 12/29/18 History losartan 50 mg PO DAILY 12/29/18 09/12/19 History memantine [Namenda XR] 7 mg PO DAILY 12/29/18 09/12/19 History nortriptyline 10 mg PO QHS 12/29/18 09/12/19 History omeprazole 20 mg PO DAILY 12/29/18 09/12/19 History pregabalin [Lyrica] 150 mg PO TID 12/29/18 12/29/18 History Allergies Allergy/AdvReac Type Severity Reaction Status Date / Time allopurinol Allergy Severe Rash and Unverified 12/29/18 12:14 SOB aspirin Allergy Severe Anaphylaxsi Unverified 12/29/18 12:14 s colchicine AdvReac Intermediate Elevated Unverified 12/29/18 12:14 creatinine metformin AdvReac Intermediate Elevated Unverified 12/29/18 12:14 creatinine Exam Narrative Exam Narrative: General: Morbidly obese, minimally conversant with patient alert and oriented possibly to person place but not time. She is no acute distress. HEENT: No cephalic, oral mucosa with dry mucosa and patient edentulous. Eyes with pupils equal and reactive to light symmetrically with sclera anicteric and extraocular movement intact. Neck: Supple without JVD. Lungs: Poor aeration with poor inspiratory effort but no focalizing adventitious sounds with no rales or rhonchi and no expiratory wheeze. Heart: The rate and rhythm with no appreciable murmur or gallop. Distant heart sounds. Breast: Exam deferred. Abdomen: Obese contour with pannus and intertriginous erythematous rash under pannus. Soft and nontender with no palpable hepatosplenomegaly. Genitalia/rectal: Exam deferred. Extremities: Obese with nonpitting edema with no clubbing or cyanosis. Joints appear to have decreased range of motion. Neuro Skin: Intertriginous rash under pannus with powder treatment in place. Warm and dry with decreased turgor. Neuro: Cranial nerves II through XII grossly intact. No focalizing motor deficits though patient appears at generalized weakness. Psych: Flattened affect with normal mood. Decreased short-term memory with remote memory intact. Results Imaging Imaging Studies: Exam: XR Chest, 2 Views Exam date and time: 09/12/2019 8:12 PM Age: 69 years old Clinical indication: Other: Weakness TECHNIQUE: Imaging protocol: XR of the chest Views: 2 views. COMPARISON: CR CHEST 2 VIEWS PA,LAT 01/18/2015 1:18 PM FINDINGS: Lungs: Opacity over the left lower lung, cannot rule out airspace disease. Right lung is clear. Pleural space: Unremarkable. No pleural effusion. No pneumothorax. Heart/Mediastinum: Unremarkable. No cardiomegaly. Bones/joints: Unremarkable. Intraperitoneal space: Surgical clip in the right upper quadrant, possibly post cholecystectomy. IMPRESSION: Opacity over the left lower lung, cannot rule out left lower lobe infiltrate. The remainder of the lungs clear. Dictated and Authenticated by: Esteban Mccormick MD. Labs Result diagrams: 09/12/19 17:53 09/12/19 17:53 Labs: Laboratory Results - last 24 hr 09/12/19 09/12/19 09/12/19 17:53 17:53 17:53 WBC 20.12 H RBC 4.34 Hgb 12.7 Hct 37.7 MCV 86.9 MCH 29.3 MCHC 33.7 RDW 13.7 Plt Count 241 MPV 9.7 Immature Gran % 0.7 Neutrophils % 90.6 Lymphocytes % 4.0 Monocytes % 4.6 Eosinophils % 0.0 Basophils % 0.1 Absolute Neutrophils 18.23 H Absolute Lymphocytes 0.80 L Absolute Monocytes 0.93 H Absolute Eosinophils 0.00 Absolute Basophils 0.02 PT 11.0 INR 1.1 Sodium 134 L Potassium 3.2 L Chloride 96 L Carbon Dioxide 27.4 Anion Gap 10.6 BUN 21 H Creatinine 1.50 H Estimated GFR/1.73 m2 34.33 Glucose 210 H Lactate Calcium 9.2 Magnesium Total Bilirubin 1.8 H AST 21 ALT 25 Alkaline Phosphatase 160 H Total Protein 7.0 Albumin 2.5 L Lipase 41 Procalcitonin Urine Color Urine Clarity Urine pH Ur Specific [place] Urine Protein Urine Ketones Urine Blood Urine Nitrite Urine Bilirubin Urine Urobilinogen Ur Leukocyte Esterase Urine RBC Urine WBC Ur Epithelial Cells Urine Crystals Urine Bacteria Urine Casts Urine Mucus Ur Culture Indicated? Urine Glucose 09/12/19 09/12/19 09/12/19 18:30 19:41 19:41 WBC RBC Hgb Hct MCV MCH MCHC RDW Plt Count MPV Immature Gran % Neutrophils % Lymphocytes % Monocytes % Eosinophils % Basophils % Absolute Neutrophils Absolute Lymphocytes Absolute Monocytes Absolute Eosinophils Absolute Basophils PT INR Sodium Potassium Chloride Carbon Dioxide Anion Gap BUN Creatinine Estimated GFR/1.73 m2 Glucose Lactate 1.4 Calcium Magnesium 1.5 L Total Bilirubin AST ALT Alkaline Phosphatase Total Protein Albumin Lipase Procalcitonin 6.1 Urine Color [place] Urine Clarity Sl cloudy Urine pH 6.0 Ur Specific [place] >= 1.030 H Urine Protein 100 H Urine Ketones Trace H Urine Blood Trace-lysed H Urine Nitrite Negative Urine Bilirubin Small H Urine Urobilinogen 1.0 H Ur Leukocyte Esterase Small H Urine RBC 3-5 H Urine WBC >50 H Ur Epithelial Cells Moderate Urine Crystals Moderate amorphous Urine Bacteria Moderate Urine Casts 10-20 hyaline Urine Mucus Negative Ur Culture Indicated? Yes Urine Glucose Negative Last Vital Signs Temp 37.4 C 09/12/19 16:56 Pulse 110 H 09/12/19 21:31 Resp 19 09/12/19 21:31 BP 125/66 09/12/19 21:31 Pulse Ox 94 L 09/12/19 22:40 COVID-19 Screening Had IN PERSON contact w/suspected or confirmed C-19 person: No
[2019-09-13] VITALS (77 sets, daily range): BP systolic 96–148; BP diastolic 50–79; PULSE 85–124; RESP 13–30; TEMP 36.6–40; O2SAT 88–97
[2019-09-13] MEDS: POTASSIUM CHLORIDE 20 MEQ/100 ML BAG 50 MEQ IVPB (00:10)
[2019-09-13] MEDS: MAGNESIUM SULFATE 2 GM/50 ML BAG IVPB (00:11)
[2019-09-13] MEDS: Heparin 5,000 UNITS/ML VIAL 5000 UNITS SC ×4 (01:51→23:30)
[2019-09-13] MEDS: Nortriptyline 10 MG CAP PO ×2 (01:52→22:02)
[2019-09-13] MEDS: Normal Saline Flush 10 ML SYR IVP ×2 (01:52→14:25)
[2019-09-13] MEDS: POTASSIUM CHLORIDE/0.9% NACL 1,000 ML 125 MEQ IV ×3 (04:30→23:23)
[2019-09-13] MEDS: Acetaminophen 325 MG TAB PO ×2 (04:44→15:55)
[2019-09-13 06:45] LABS: Abs Immature Grans 0.08 10^3/uL (0.0-0.06); Absolute Basophil Count 0.01 10^3/uL (0.0-0.2); Absolute Lymphocyte Count 0.64 10^3/uL (1.2-3.4); Absolute Neutrophil Count 13.16 10^3/uL (1.2-6.7); Basophils % 0.1; HCT 32.7 % (36.0-46.0); HGB 11.2 g/dL (11.2-15.7); Immature Grans % 0.6; Lymphocytes % 4.4; MCH 29.5 pg (27.0-33.0); MCHC 34.3 % (32.0-36.0); MCV 86.1 fL (80-95); Monocytes % 4.3; Neutrophils % 90.6; Platelet Count 229 10^3/uL (130-400); RDW 14.1 % (11.7-14.6); RDW-SD 44.4 fL; WBC 14.52 10^3/uL (4.4-10.8)
[2019-09-13 06:47] LABS: Absolute Monocyte Count 0.62 10^3/uL (0.1-0.8)
[2019-09-13 06:55] LABS: Magnesium 1.8 mg/dL (1.8-2.4)
[2019-09-13 07:07] LABS: ALT 19 U/L (14-59); AST 16 U/L (15-37); Albumin 2.1 g/dL (3.4-5.0); Alkaline Phosphatase 137 U/L (46-116); Anion Gap 10.6 mmol/L (3-11); BUN 22 mg/dL (7-18); Bilirubin, Total 1.1 mg/dL (0.2-1.0); CO2 25.4 mmol/L (21.0-32.0); CREATININE 1.36 mg/dL (0.55-1.02); Calcium 8.7 mg/dL (8.5-10.1); Chloride 98 mmol/L (98-107); Estimated GFR 38.44 (mL/min/1.73m2); Glucose 141 mg/dL (74-106); Total Protein 6.3 g/dL (6.4-8.2)
[2019-09-13 07:11] LABS: Sodium 134 mmol/L (136-145)
[2019-09-13] MEDS: Potassium Chloride 20 MEQ TABCR PO ×2 (08:06→17:38)
[2019-09-13] MEDS: Escitalopram 20 MG TAB PO (08:06)
[2019-09-13] MEDS: Omeprazole 20 MG CAPCR PO (08:06)
[2019-09-13] MEDS: Gabapentin 300 MG CAP 600 MG PO ×2 (08:07→20:25)
--- NOTE | 2019-09-13 08:07 | INITIAL_ITS ---
- If Service Date Differs Date of service: 09/13/19 Time of Service: 08:07 Care Management Initial Assess REASON FOR HOSPITALIZATION:: Systemic inflammatory response syndrome PAST MEDICAL HISTORY/PAST SURGICAL HISTORY:: DM, dementia PREVIOUS FUNCTIONAL STATUS/SOCIAL/FAMILY SUPPORTS:: Flor lives in a mobile home in [facility] [place] [address]. Her spouse in January 2020. She has a 18 non verbal autistic child a 16 year old daughter and a 12 year old son. The children are adopted and live with Flor fulltime. Flor has periods of confusion her daughter 16 year old Larissa helps take care of the other children. Flor states she still drives and is able to care for herself. Flor does have some good neighbors that watch over the children when she is not there including Stephen Wilson [phone]. CURRENT FUNCTIONAL STATUS:: Flor is alert but she does have some difficulty answering questions. CM was contacted by primary nurse concerns that there was a young girl calling telling Flor that she neeed to return home with the kids so she could leave. Flor came into the hospital very ill, her friend Stephen reports she could not get her up to bring her in and had to contact the ambulance. Flor identifies that the young girl calling is her adopted daughter Larissa and that she was home alone with the two children. CM contacted Larissa and determine that she is caring for both the boys. She states she knows how to care for them and give them her medication. CM is concerned about the children's welfare and contacted [facility]. CM explained to Flor as a mandated a reported I am obligated to contact DCF with concerns. Flor states she understands and is worried that someone will come in and take the kids away. She is not able to understand the concern and states that Larissa is very grown up. ADVANCE DIRECTIVES:: None on file will offer information and packet Has patient been provided with info about the portal/API?: Yes Did the patient sign up for the portal?: Yes (Enrolled ) CODE STATUS:: Full Code INSURANCE COVERAGE / FINANCIAL ISSUES:: Medicaid and Medicare CURRENT HOME/COMMUNITY SERVICES/EQUIPMENT:: No current services PRIMARY CARE PHYSICIAN:: Elke Jansen POTENTIAL DISCHARGE NEEDS:: Follow up with primary care as directed scheduled prior to discharge. PATIENT/FAMILY EDUCATION NEEDS:: Discharge edcuation, limitations and follow up plan of care. ANTICIPATED BARRIERS TO DISCHARGE:: Flor is being contacted by her daughter Larissa and told she needs to return home and care for the children. Flor is not able to be discharged from the hospital appropiately due to severity of illness. TRANSPORTATION:: Pending disposition PLAN:: Flor is receiving IV abx, she is now a medical surgical patient. CM contacted [facility] and filed a report DCF contact number is and the report number is [id number]. CM did review the plan with Flor's friend Stephen there are several people watching over the children in the community making sure they are safe. [facility] is aware that the children are home indepedently. CM spoke Flor's adult daughter and updated her on the situation and her friend Stephen who is local to the home. CM will continue to assess for discharge need and will continue to support patient and family, discharge planning.
[2019-09-13] MEDS: Insulin Aspart 300 UNITS/3 ML PEN SC ×2 (09:16→12:26)
--- NOTE | 2019-09-13 09:20 | PHACLINREV_ITS ---
Pharmacy Admission Review - Admission Clinical Review (Last Reviewed 09/13/19 @ 03:10 by Ramon Hurst) SIRS (systemic inflammatory response syndrome) (Acute) Electrolyte abnormality (Acute) Acute UTI (Acute) Pneumonia (Acute) allopurinol Allergy (Severe, Unverified 12/29/18 12:14) Rash and SOB aspirin Allergy (Severe, Unverified 12/29/18 12:14) Anaphylaxsis colchicine Adverse Reaction (Intermediate, Unverified 12/29/18 12:14) Elevated creatinine metformin Adverse Reaction (Intermediate, Unverified 12/29/18 12:14) Elevated creatinine Height 5 ft 6 in Weight 131.542 kg - Renal Dosing Renal Dosing: BUN 22 mg/dL (7-18) H 09/13/19 05:45 Creatinine 1.36 mg/dL (0.55-1.02) H 09/13/19 05:45 Medications needing adjustments: Reviewed (Gabapentin 600mg po BID is above the daily recommended max of 900mg/day for CrCl 30-49, patient's current clearance is 36ml/min) List of meds needing interventions: Gabapentin - Anticoagulation Anticoagulation: Hgb 11.2 g/dL (11.2-15.7) 09/13/19 05:45 Hct 32.7 % (36.0-46.0) L 09/13/19 05:45 Plt Count 229 10^3/uL (130-400) 09/13/19 05:45 INR 1.1 (0.9-1.1) 09/12/19 17:53 Creatinine 1.36 mg/dL (0.55-1.02) H 09/13/19 05:45 DVT Prohphylaxis: Reviewed Medications: Heparin Therapeutic Anticoagulation: N/A - Opiate Usage Evaluate Pain Scale/Pains Meds: N/A - Relevant Labs Sodium 134 mmol/L (136-145) L 09/13/19 05:45 Potassium 3.0 mmol/L (3.5-5.1) L 09/13/19 05:45 Chloride 98 mmol/L (98-107) 09/13/19 05:45 Magnesium 1.8 mg/dL (1.8-2.4) 09/13/19 05:45 Electrolytes, C-Reactive P, ESR: Reviewed (Potassium low, 20meq IV x1 in ED, 20meq oral, IVF's with [facility]-MD will reasess this afternoon, Did also receive Mag 2gram IV x1 in ED) - DM Control DM Control: Glucose 141 mg/dL (74-106) H 09/13/19 05:45 Finger Stick Blood Glucose 143 Finger Stick Blood Glucose 143 Insulin Dosing: Reviewed (Novolog scale, holding oral meds and basal insulin for now) - Heart Failure/WI EF%, MARIANN's, B-Blockers, Diuretics: Reviewed - BP Control BP Control: Blood Pressure [Right Calf] 133/79 Blood Pressure 112/56 Blood Pressure 103/56 Blood Pressure 100/58 Blood Pressure 106/60 Blood Pressure 104/61 Blood Pressure 115/64 Blood Pressure 117/57 Blood Pressure 105/51 Blood Pressure 126/67 Blood Pressure 137/62 Blood Pressure 140/67 Blood Pressure 148/65 Blood Pressure 139/86 Blood Pressure 125/66 If elevated: Reviewed (Losartan, Furosemide on home med list-non compliance may be an issue) - Qtc Review If Elevated: N/A - IV to PO Switch IV Medications: Reviewed (Doxycycline and Rocephin when appropriate) - Home Meds Home Med List reviewed: Reviewed Relevent Home Meds Not ordered & why?: Vit D-OTC, Cyclobenzaprine-old order, Fexofenadine-OTC, old order, Furosemide, Glyburide, Ibuprofen, Lantus, Tradjenta, Lorazepam, Losartan, Lyrica. per H&P: patient not using her insulin, appears possible non-compliance with other meds as well, BP not elevated at this time, using Novolog for insulin coverage, slightly dehydrated so no Lasix ordered - Current meds Current Medication Order Review: Reviewed (Gabapentin dose is above the recommended max-will mention to MD) - Comments Comments/Follow Ups: Did have a fever overnight (Tmax 40.0), follow diabetes-hol ding oral meds and basal insulin, BP-may need to restart home meds for hypertension, HR 90-100's, check Potassium level and supplements, IVF's, Blood cultures & urine pending so reeval Microbiology and Antibiotic coverage-watch for switch from IV to oral
[2019-09-13] MEDS: DOXYCYCLINE 100 MG in Normal Saline 100 ML IVPB ×2 (11:56→23:29)
--- NOTE | 2019-09-13 12:45 | W.PM.PROGNOT ---
Date of Service Date of service: 09/13/19 Time of Service: 12:45 Assessment and Plan Assessment and plan (1) SIRS (systemic inflammatory response syndrome): Status: Acute Assessment and plan: Resolving. WBC increased; likely d/t stress dosing of steroid. BP stable HR; mild tachycardia; HR in the 90's. CBC in AM (2) Pneumonia: Status: Acute Assessment and plan: Clinically stable. Denies SOA On 2L O2 per NC; saturations in the upper 90's. Cont Rocephin an doxycycline. Qualifiers: Pneumonia type: due to unspecified organism Laterality: left Lung location: lower lobe of lung Qualified Code(s): J18.9 - Pneumonia, unspecified organism (3) Electrolyte abnormality: Status: Acute Assessment and plan: Na mildly low at 134 K 3.0. Oral replacement Monitor (4) Diabetes mellitus: Status: Chronic Assessment and plan: Cont AC sliding scale insulin Consider adding back basal insulin pending adequacy of oral intake. Monitor Qualifiers: Diabetes mellitus type: type 2 Diabetes mellitus fpc insulin use: with fpc use Diabetes mellitus complication status: with kidney complications Diabetes mellitus complication detail: with chronic kidney disease Chronic kidney disease stage: stage 3 (moderate) Qualified Code(s): E11.22 - Type 2 diabetes mellitus with diabetic chronic kidney disease; N18.3 - Chronic kidney disease, stage 3 (moderate); Z79.4 - jail (current) use of insulin (5) Acute UTI: Status: Acute Assessment and plan: Urine growing gram positive winter; mixed. On Rocephin. Rocephin also for PNA Subjective Subjective Patient reports: no new complaints and feels better Interval history since last seen: still tired No cough/sputum No abd pain, dysuria. States she isn't hungry but no N/V/abd pain Exam Const General: cooperative, no acute distress and lethargic Nutritional Appearance: obese Other: asleep. Wakens to verbal stimuli Neck Neck: normal visual inspection, full ROM and no JVD Resp Effort & Inspection: normal respiratory effort Auscultation: clear to auscultation bilaterally and diminished lung sounds Cardio Rate: regular rate Rhythm: regular rhythm Heart Sounds: S1 normal and S2 normal GI Inspection: obesity Palpation: soft Auscultation: normal bowel sounds Neuro General: patient oriented x3 Speech: speech normal Extrem General: no pedal edema and no calf tenderness Psych Speech and Movement: slowed movement Mood: congruent mood Affect: blunted Attitude: cooperative Objective Objective Clinical Data: Abnormal lab results 09/12/19 09/12/19 09/12/19 Range/Units 17:53 17:53 18:30 WBC 20.12 H (4.4-10.8) 10^3/uL RBC (3.93-5.22) 10^6/uL Hct (36.0-46.0) % Absolute Neutrophils 18.23 H (1.2-6.7) 10^3/uL Absolute Lymphocytes 0.80 L (1.2-3.4) 10^3/uL Absolute Monocytes 0.93 H (0.1-0.8) 10^3/uL Sodium 134 L (136-145) mmol/L Potassium 3.2 L (3.5-5.1) mmol/L Chloride 96 L (98-107) mmol/L BUN 21 H (7-18) mg/dL Creatinine 1.50 H (0.55-1.02) mg/dL Glucose 210 H (74-106) mg/dL Magnesium (1.8-2.4) mg/dL Total Bilirubin 1.8 H (0.2-1.0) mg/dL Alkaline Phosphatase 160 H (46-116) U/L Total Protein (6.4-8.2) g/dL Albumin 2.5 L (3.4-5.0) g/dL Ur Specific [place] >= 1.030 H (1.005-1.025) Urine Protein 100 H (Negative) mg/dL Urine Ketones Trace H (Negative) mg/dL Urine Blood Trace-lysed H (Negative) Urine Bilirubin Small H (Negative) Urine Urobilinogen 1.0 H (Up TO 0.2) EU/dL Ur Leukocyte Esterase Small H (Negative) Urine RBC 3-5 H (0-2) HPF Urine WBC >50 H (0-5) HPF 09/12/19 09/13/19 09/13/19 Range/Units 19:41 05:45 05:45 WBC 14.52 H (4.4-10.8) 10^3/uL RBC 3.80 L (3.93-5.22) 10^6/uL Hct 32.7 L (36.0-46.0) % Absolute Neutrophils 13.16 H (1.2-6.7) 10^3/uL Absolute Lymphocytes 0.64 L (1.2-3.4) 10^3/uL Absolute Monocytes (0.1-0.8) 10^3/uL Sodium 134 L (136-145) mmol/L Potassium 3.0 L (3.5-5.1) mmol/L Chloride (98-107) mmol/L BUN 22 H (7-18) mg/dL Creatinine 1.36 H (0.55-1.02) mg/dL Glucose 141 H (74-106) mg/dL Magnesium 1.5 L (1.8-2.4) mg/dL Total Bilirubin 1.1 H (0.2-1.0) mg/dL Alkaline Phosphatase 137 H (46-116) U/L Total Protein 6.3 L (6.4-8.2) g/dL Albumin 2.1 L (3.4-5.0) g/dL Ur Specific [place] (1.005-1.025) Urine Protein (Negative) mg/dL Urine Ketones (Negative) mg/dL Urine Blood (Negative) Urine Bilirubin (Negative) Urine Urobilinogen (Up TO 0.2) EU/dL Ur Leukocyte Esterase (Negative) Urine RBC (0-2) HPF Urine WBC (0-5) HPF Vital Signs Temperature 36.6 C 09/13/19 06:45 Temperature Source Temporal Artery Scan 09/13/19 06:45 Pulse 92 H 09/13/19 10:01 Pulse Rhythm Regular 09/13/19 09:24 Pulse 96 H 09/13/19 10:01 Respiratory Rate 18 09/13/19 10:01 Respiratory Effort Non-Labored 09/13/19 09:24 Respiratory Depth Normal 09/13/19 09:24 Respiratory Pattern Normal 09/13/19 09:24 Blood Pressure 118/66 09/13/19 10:01 Blood Pressure Mean 76 09/13/19 10:01 Blood Pressure Position Supine 09/13/19 01:19 Pulse Oximetry 96 09/13/19 10:01 Oxygen Delivery Method Nasal Cannula 09/13/19 09:30 Oxygen Flow Rate 2 09/13/19 09:30 Pain Level 10 09/12/19 16:56 Intake & Output 07/31/20 08/01/20 08/01/20 23:59 11:59 23:59 Intake Total 2159 150 / 150 Output Total 1070 / 1070 Balance 2159 -920 / -920 Weight 131.542 kg 131.542 kg Intake: IV 2159 150 / 150 Output: Urine 1070 / 1070 Other: Urine Color Dark Tia Urine Appearance Clear Laboratory Results WBC 14.52 10^3/uL (4.4-10.8) H 09/13/19 05:45 RBC 3.80 10^6/uL (3.93-5.22) L 09/13/19 05:45 Hgb 11.2 g/dL (11.2-15.7) 09/13/19 05:45 Hct 32.7 % (36.0-46.0) L 09/13/19 05:45 MCV 86.1 fL (80-95) 09/13/19 05:45 MCH 29.5 pg (27.0-33.0) 09/13/19 05:45 MCHC 34.3 % (32.0-36.0) 09/13/19 05:45 RDW 14.1 % (11.7-14.6) 09/13/19 05:45 Plt Count 229 10^3/uL (130-400) 09/13/19 05:45 MPV 10.0 fL (8.0-11.0) 09/13/19 05:45 Immature Gran % 0.6 09/13/19 05:45 Neutrophils % 90.6 09/13/19 05:45 Lymphocytes % 4.4 09/13/19 05:45 Monocytes % 4.3 09/13/19 05:45 Eosinophils % 0.0 09/13/19 05:45 Basophils % 0.1 09/13/19 05:45 Absolute Neutrophils 13.16 10^3/uL (1.2-6.7) H 09/13/19 05:45 Absolute Lymphocytes 0.64 10^3/uL (1.2-3.4) L 09/13/19 05:45 Absolute Monocytes 0.62 10^3/uL (0.1-0.8) 09/13/19 05:45 Absolute Eosinophils 0.00 10^3/uL (0.0-0.7) 09/13/19 05:45 Absolute Basophils 0.01 10^3/uL (0.0-0.2) 09/13/19 05:45 PT 11.0 sec (9.3-11.0) 09/12/19 17:53 INR 1.1 (0.9-1.1) 09/12/19 17:53 Sodium 134 mmol/L (136-145) L 09/13/19 05:45 Potassium 3.0 mmol/L (3.5-5.1) L 09/13/19 05:45 Chloride 98 mmol/L (98-107) 09/13/19 05:45 Carbon Dioxide 25.4 mmol/L (21.0-32.0) 09/13/19 05:45 Anion Gap 10.6 mmol/L (3-11) 09/13/19 05:45 BUN 22 mg/dL (7-18) H 09/13/19 05:45 Creatinine 1.36 mg/dL (0.55-1.02) H 09/13/19 05:45 Estimated GFR/1.73 m2 38.44 (mL/min/1.73m2) 09/13/19 05:45 Glucose 141 mg/dL (74-106) H 09/13/19 05:45 Lactate 1.4 mmol/L (0.6-1.4) 09/12/19 19:41 Calcium 8.7 mg/dL (8.5-10.1) 09/13/19 05:45 Magnesium 1.8 mg/dL (1.8-2.4) 09/13/19 05:45 Total Bilirubin 1.1 mg/dL (0.2-1.0) H 09/13/19 05:45 AST 16 U/L (15-37) 09/13/19 05:45 ALT 19 U/L (14-59) 09/13/19 05:45 Alkaline Phosphatase 137 U/L (46-116) H 09/13/19 05:45 Total Protein 6.3 g/dL (6.4-8.2) L 09/13/19 05:45 Albumin 2.1 g/dL (3.4-5.0) L 09/13/19 05:45 Lipase 41 U/L (73-393) 09/12/19 17:53 Procalcitonin 6.1 ng/mL 09/12/19 19:41 Urine Color [place] (Yellow) 09/12/19 18:30 Urine Clarity Sl cloudy (Clear) 09/12/19 18:30 Urine pH 6.0 (5-8) 09/12/19 18:30 Ur Specific [place] >= 1.030 (1.005-1.025) H 09/12/19 18:30 Urine Protein 100 mg/dL (Negative) H 09/12/19 18:30 Urine Ketones Trace mg/dL (Negative) H 09/12/19 18:30 Urine Blood Trace-lysed (Negative) H 09/12/19 18:30 Urine Nitrite Negative (Negative) 09/12/19 18:30 Urine Bilirubin Small (Negative) H 09/12/19 18:30 Urine Urobilinogen 1.0 EU/dL (Up TO 0.2) H 09/12/19 18:30 Ur Leukocyte Esterase Small (Negative) H 09/12/19 18:30 Urine RBC 3-5 HPF (0-2) H 09/12/19 18:30 Urine WBC >50 HPF (0-5) H 09/12/19 18:30 Ur Epithelial Cells Moderate HPF (Negative) 09/12/19 18:30 Urine Crystals Moderate amorphous HPF (Negative) 09/12/19 18:30 Urine Bacteria Moderate HPF (Negative) 09/12/19 18:30 Urine Casts 10-20 hyaline LPF (Negative) 09/12/19 18:30 Urine Mucus Negative (Negative) 09/12/19 18:30 Ur Culture Indicated? Yes 09/12/19 18:30 Urine Glucose Negative mg/dL (Negative) 09/12/19 18:30
[2019-09-13 14:28] LABS: COVID-19 RT-PCR UVMMC Result Negative (Negative)
[2019-09-14] VITALS (19 sets, daily range): BP systolic 103–152; BP diastolic 63–85; PULSE 86–115; RESP 18–22; TEMP 36.2–39.2; O2SAT 89–98
[2019-09-14] MEDS: Acetaminophen 325 MG TAB PO ×4 (02:04→20:24)
[2019-09-14] MEDS: Gabapentin 300 MG CAP 600 MG PO ×2 (08:30→19:37)
[2019-09-14] MEDS: Heparin 5,000 UNITS/ML VIAL 5000 UNITS SC ×3 (08:30→23:53)
[2019-09-14] MEDS: Escitalopram 20 MG TAB PO (08:30)
[2019-09-14] MEDS: Omeprazole 20 MG CAPCR PO (08:31)
[2019-09-14] MEDS: Milk of Magnesia 30 ML CUP PO (08:31)
[2019-09-14] MEDS: POTASSIUM CHLORIDE/0.9% NACL 1,000 ML 125 MEQ IV (08:32)
[2019-09-14] MEDS: Potassium Chloride 20 MEQ TABCR PO (08:46)
[2019-09-14 09:57] LABS: Anion Gap 8.8 mmol/L (3-11); BUN 20 mg/dL (7-18); CO2 25.2 mmol/L (21.0-32.0); CREATININE 1.02 mg/dL (0.55-1.02); Calcium 8.7 mg/dL (8.5-10.1); Chloride 99 mmol/L (98-107); Estimated GFR 53.58 (mL/min/1.73m2); Glucose 151 mg/dL (74-106); Potassium 4.6 mmol/L (3.5-5.1); Sodium 133 mmol/L (136-145)
--- NOTE | 2019-09-14 09:57 | CMPROGNOTE_ITS ---
- If Service Date Differs Date of service: 09/14/19 Time of Service: 09:57 Care Management Progress Note S/O: Flor remains acute, she did have a PT consult today and PT reports she is to weak to be discharged at this time. CM reviewed concerns with provider and will plan to keep Flor at least one more night. CM did meet with Flor's daughter Nikki last evening and reviewed concerns, she is worried that Flor will not be able to care for her adopted children when she returns home. CM did file a DCF report to find additional supports for the home. Flor does have some good neighbors including [facility] [phone] who provide some support to Flor and the kids. A: Flor is a 69 year old female admitted with pneumonia and UTI and a history of dementia P: Flor will be discharged home when medically ready, she may benefit from some short term PT and OT in the home. CM will continue to assess for discharge needs and coordinate services. DCF intake number is [id number].
--- NOTE | 2019-09-14 10:04 | IN_ITS ---
PT Notes Visit Reasons: UTI,PNEUMONIA Inpatient Physical Therapy Evaluation Date: 09/14/2019 Referring Doctor: Davon Hinds PT Orders: PT CONSULT: Evaluate Precautions: Falls Patient Profile/Admitting Diagnosis: A 69-year-old female who was admitted recently with a UTI and pneumonia and SIRS. PMHX: Other problems include diabetes, chronic kidney disease, COPD, hypertension, obesity Social History/Home Situation: Lives in [place] on the second floor with exterior stairway with railing. She is retired, and has noticed a 18-year-old son, a 16 and 12-year-old child. She lost her this past February. She was able to take care of all of her household responsibilities including meals and other ADLs. She also drives. Current Functional Limitations: She is weak and requires mild assistance with her bed mobility activities and her walking with a walker is limited to 10 feet. Equipment Owned/DME: As a combo shower tub, and her daughter will occasionally assist her with showering. No grab bars or flexible shower hose. Uses a cane Subjective: Patient complaining of generalized weakness and anxious to return home to take care of her children, etc. Objective: [] General Observation: Pleasant and cooperative and no abnormal pain behavior noted. Discouraged regarding her current medical condition Mental Status: Alert and oriented x3 Pain: No complaints of pain offered Vital Signs: Her resting pulse is 100 bpm and increases to 130 bpm following ambulation ROM: Her active assistive range of motion throughout her shoulders, elbows forearms wrist and digits, hips and knees demonstrate good functional motion without pain on movement. Strength: Is full motor control throughout and strength is generally rated 4/5 Neuro: Hyporeflexive, sensations intact light touch. Tone is symmetrical, fingertips to nose is accurate without ataxia Bed Mobility/Transfers: Requires mild assist when assuming the supine to sitting position and vice versa. Minimal assist with assuming the sitting to standing position. Gait: She ambulated approximately 10 feet with a wheeled walker with short stride and complained of fear of falling and weakness. Unilateral standing balance is less than 2 seconds. Balance: [] Static Sitting: Good Dynamic Sitting: Good Static Standing: Good with a walker Dynamic Standing: Fair to good with a walker Special Tests: Mobility Limitations [facility] Basic Mob[facility] In[facility] Short Form: Raw Score: 11 standardized Score: 33.86 CMS Score: 72.57% [facility] Modifier: CL Informed Consent/Education: Patient instructed in purpose of PT consult and plan of care. Assessment: Patient is a 69 year old female referred to physical therapy services with the diagnosis of UTI/pneumonia. Patient presents with clinical signs and symptoms consistent with diagnosis, as demonstrated by the following impairment level findings: Generalized weakness deconditioning throughout with ambulation limited to less than 10 feet. Impairments are contributing to the following functional limitations: AMPAC score. Patient is assessed as a [] Moderate 47243 complexity based on the following: History: See comorbidities and social history Examination: See above for functional limitations and impairments Presentation: Evolving Decision Making: Moderate complexity based on her clinical findings Goals: Goals X1 week 1. Supine-Sit independent 2. Sit-Supine independent 3. Sit-Stand independent 4. Stand-Sit independent 5. Bed-Chair independent 6. Chair-Bed independent 7. Gait independent ambulation with a wheeled walker for greater than 50 feet 8. Stairs ascend stairs with a railing with greater than 8 steps 9. Independent with home exercise program [] Plan of Care/Treatment Plan: 1-2x/day, 7 days/week x 1 week. Plan of care has been reviewed with the OUTBOARD MOTOR ASSEMBLER providing the service under Physical Therapy direction. Initiate Physical Therapy intervention for strengthening, bed mobility, transfers, gait, stairs, balance training, use of assistive device. DISCHARGE RECOMMENDATIONS: Too weak to return home yet to assume her premorbid activity levels TREATMENT CODE/TIME: 9716 2/45 minutes Disclaimer: This note was created using [employer] voice recognition software. It was reviewed for major content. However, there may be multiple small discrepancies and errors due to the voice recognition aspects of the software.
--- NOTE | 2019-09-14 11:25 | DI.RAD_ITS ---
EXAM: XR PORTABLE CHEST AP CLINICAL HISTORY: Pneumonia TECHNIQUE: COMPARISON: CR,XR XR CHEST 2V PA LATERAL from 09/12/2019 FINDINGS: The heart may be mildly enlarged. There is retrocardiac radiodensity consistent with acute consolida tion, this may be slightly more prominent than on prior radiographs of September 11. PA and lateral phani st suggested for follow-up. No other significant change seen. IMPRESSION:
--- NOTE | 2019-09-14 11:28 | DI.VRAD_ITS ---
PROCEDURE INFORMATION: Exam: XR Chest, 1 View Exam date and time: 09/14/2019 11:20 AM Age: 69 years old Clinical indication: Other: Pneumonia TECHNIQUE: Imaging protocol: XR of the chest Views: 1 view. COMPARISON: CR XR CHEST 2V PA LATERAL 09/12/2019 8:12 PM FINDINGS: Hypoinflation. Cardiomegaly. Mild cephalization and engorgement of the pulmonary vasculature. Left lower lung field opacity. Clear right lung. No large pleural effusion. No pneumothorax. Surgical clip projects over the right upper quadrant. No acute osseous findings. IMPRESSION: Cardiomegaly and mild pulmonary vascular congestion along with left lower lung field opacity could represent pulmonary edema and/or infectious process in the proper clinical setting. Recommend correlation. Dictated and Authenticated by: Francesco Ortiz MD. Ordering:MARSHA Mays MD
[2019-09-14 11:56] LABS: Abs Immature Grans 0.07 10^3/uL (0.0-0.06); Absolute Basophil Count 0.01 10^3/uL (0.0-0.2); Absolute Lymphocyte Count 0.47 10^3/uL (1.2-3.4); Absolute Monocyte Count 0.38 10^3/uL (0.1-0.8); Absolute Neutrophil Count 9.11 10^3/uL (1.2-6.7); Basophils % 0.1; HCT 33.2 % (36.0-46.0); HGB 11.1 g/dL (11.2-15.7); Immature Grans % 0.7; Lymphocytes % 4.7; MCH 29.4 pg (27.0-33.0); MCHC 33.4 % (32.0-36.0); MCV 88.1 fL (80-95); MPV 9.9 fL (8.0-11.0); Monocytes % 3.8; Neutrophils % 90.7; Platelet Count 222 10^3/uL (130-400); RBC 3.77 10^6/uL (3.93-5.22); RDW 14.4 % (11.7-14.6); RDW-SD 45.9 fL; WBC 10.04 10^3/uL (4.4-10.8)
[2019-09-14] MEDS: levoFLOXacin 500 MG, levoFLOXacin 250 MG 750 MG PO (12:26)
[2019-09-14 12:44] LABS: Bilirubin Small (Negative); Blood Moderate (Negative); Clarity Cloudy (Clear); Glucose Negative (Negative); Ketones 15 mg/dL (Negative); Leukocyte Esterase Small (Negative); Nitrite Negative (Negative); Specific Gravity 1.025 (1.005-1.025)
[2019-09-14 13:00] LABS: Bacteria Moderate HPF (Negative); Epithelial Cells Moderate HPF (Negative); WBC 20-50 HPF (0-5)
[2019-09-14 13:01] LABS: C & S Indicated? C&S Done As Ordered; Casts Negative LPF (Negative); Crystals Negative HPF (Negative); Mucus Moderate (Negative)
--- NOTE | 2019-09-14 13:07 | W.PM.PROGNOT ---
Date of Service Date of service: 09/14/19 Time of Service: 13:07 Assessment and Plan Assessment and plan (1) Diabetes mellitus: Status: Chronic Assessment and plan: Cont SS corrective dose of insulin Monitor Poor oral intake other than fluids. Qualifiers: Chronic kidney disease stage: stage 3 (moderate) Diabetes mellitus complication detail: with chronic kidney disease Diabetes mellitus complication status: with kidney complications Diabetes mellitus snf insulin use: with termite control technician use Diabetes mellitus type: type 2 Qualified Code(s): E11.22 - Type 2 diabetes mellitus with diabetic chronic kidney disease; N18.3 - Chronic kidney disease, stage 3 (moderate); Z79.4 - joint terminal attack controller (current) use of insulin (2) Acute UTI: Status: Acute Assessment and plan: Repeat UA similar to previous. Initial culture grew mixed winter. Had lost IV access this AM and could not draw blood. Changed to Levaquin 750mg po daily. Now does have midline IV access if needed. CBC normalized; monitor. (3) Pneumonia: Status: Acute Assessment and plan: LLL opacity; edema vs infiltrate. Was initially tx with Azithromycin and Rocephin. With loss of IV access, changed coverage to Levaquin 750 mg po daily. Now has midline IV but will cont oral antibiotic and monitor CBC and sxs. She did have a temp of 102.2 this AM. Qualifiers: Laterality: left Lung location: lower lobe of lung Pneumonia type: due to unspecified organism Qualified Code(s): J18.9 - Pneumonia, unspecified organism Subjective Subjective Interval history since last seen: Pt felt chills this AM. Temp of 102.2 F. No cough/sputum No pelvic/lower abd pain. + nausea w/o emesis. Diminished appetite. Drinking fluids adequately. Exam Const General: cooperative and no acute distress Nutritional Appearance: obese Orientation: alert, oriented to person and oriented to place Resp Effort & Inspection: normal respiratory effort Auscultation: clear to auscultation bilaterally Cardio Jugular venous pressure: no JVD Rate: regular rate Rhythm: regular rhythm Heart Sounds: S1 normal and S2 normal GI Inspection: normal to inspection and obesity Palpation: soft and tender (mild, diffuse) Skin General skin exam: no rashes or lesions noted Extrem General: normal to inspection and no clubbing, cyanosis or edema Objective Objective Clinical Data: Abnormal lab results 09/14/19 09/14/19 09/14/19 Range/Units 09:25 11:45 12:30 RBC 3.77 L (3.93-5.22) 10^6/uL Hgb 11.1 L (11.2-15.7) g/dL Hct 33.2 L (36.0-46.0) % Absolute Neutrophils 9.11 H (1.2-6.7) 10^3/uL Absolute Lymphocytes 0.47 L (1.2-3.4) 10^3/uL Sodium 133 L (136-145) mmol/L BUN 20 H (7-18) mg/dL Glucose 151 H (74-106) mg/dL Urine Protein 100 H (Negative) mg/dL Urine Ketones 15 H (Negative) mg/dL Urine Blood Moderate H (Negative) Urine Bilirubin Small H (Negative) Urine Urobilinogen 4.0 H (Up TO 0.2) EU/dL Ur Leukocyte Esterase Small H (Negative) Urine RBC 3-5 H (0-2) HPF Urine WBC 20-50 H (0-5) HPF Vital Signs Temperature 39 C H 09/14/19 11:24 Temperature Source Tympanic 09/14/19 11:11 Pulse 105 H 09/14/19 11:11 Pulse Rhythm Regular 09/14/19 08:25 Pulse 107 H 09/13/19 14:51 Respiratory Rate 20 09/14/19 11:11 Respiratory Effort Non-Labored 09/14/19 08:25 Respiratory Depth Normal 09/14/19 08:25 Respiratory Pattern Normal 09/14/19 08:25 Blood Pressure 131/63 09/14/19 11:11 Blood Pressure Mean 80 09/13/19 14:51 Blood Pressure Position Supine 09/13/19 01:19 Pulse Oximetry 96 09/14/19 11:11 Oxygen Delivery Method Room Air 09/14/19 11:11 Oxygen Flow Rate 0 09/14/19 11:11 Pain Level 0 09/14/19 11:11 Comment 09/14/19 03:03 Intake & Output 09/13/19 09/14/19 09/14/19 23:59 11:59 23:59 Intake Total 2350.00 / 2500.00 1600 / 2120 520 / 2120 Output Total 500 / 1570 850 / 850 Balance 1850.00 / 930.00 750 / 1270 520 / 1270 Intake: IV 1800.00 / 1950.00 1000 / 1000 Oral 550 / 550 600 / 1120 520 / 1120 Output: Urine 500 / 1570 850 / 850 Other: Urine Color Straw Dark Tia Urine Appearance Clear Clear Laboratory Results WBC 10.04 10^3/uL (4.4-10.8) 09/14/19 11:45 RBC 3.77 10^6/uL (3.93-5.22) L 09/14/19 11:45 Hgb 11.1 g/dL (11.2-15.7) L 09/14/19 11:45 Hct 33.2 % (36.0-46.0) L 09/14/19 11:45 MCV 88.1 fL (80-95) 09/14/19 11:45 MCH 29.4 pg (27.0-33.0) 09/14/19 11:45 MCHC 33.4 % (32.0-36.0) 09/14/19 11:45 RDW 14.4 % (11.7-14.6) 09/14/19 11:45 Plt Count 222 10^3/uL (130-400) 09/14/19 11:45 MPV 9.9 fL (8.0-11.0) 09/14/19 11:45 Immature Gran % 0.7 09/14/19 11:45 Neutrophils % 90.7 09/14/19 11:45 Lymphocytes % 4.7 09/14/19 11:45 Monocytes % 3.8 09/14/19 11:45 Eosinophils % 0.0 09/14/19 11:45 Basophils % 0.1 09/14/19 11:45 Absolute Neutrophils 9.11 10^3/uL (1.2-6.7) H 09/14/19 11:45 Absolute Lymphocytes 0.47 10^3/uL (1.2-3.4) L 09/14/19 11:45 Absolute Monocytes 0.38 10^3/uL (0.1-0.8) 09/14/19 11:45 Absolute Eosinophils 0.00 10^3/uL (0.0-0.7) 09/14/19 11:45 Absolute Basophils 0.01 10^3/uL (0.0-0.2) 09/14/19 11:45 PT 11.0 sec (9.3-11.0) 09/12/19 17:53 INR 1.1 (0.9-1.1) 09/12/19 17:53 Sodium 133 mmol/L (136-145) L 09/14/19 09:25 Potassium 4.6 mmol/L (3.5-5.1) D 09/14/19 09:25 Chloride 99 mmol/L (98-107) 09/14/19 09:25 Carbon Dioxide 25.2 mmol/L (21.0-32.0) 09/14/19 09:25 Anion Gap 8.8 mmol/L (3-11) 09/14/19 09:25 BUN 20 mg/dL (7-18) H 09/14/19 09:25 Creatinine 1.02 mg/dL (0.55-1.02) 09/14/19 09:25 Estimated GFR/1.73 m2 53.58 (mL/min/1.73m2) 09/14/19 09:25 Glucose 151 mg/dL (74-106) H 09/14/19 09:25 Lactate 1.4 mmol/L (0.6-1.4) 09/12/19 19:41 Calcium 8.7 mg/dL (8.5-10.1) 09/14/19 09:25 Magnesium 1.8 mg/dL (1.8-2.4) 09/13/19 05:45 Total Bilirubin 1.1 mg/dL (0.2-1.0) H 09/13/19 05:45 AST 16 U/L (15-37) 09/13/19 05:45 ALT 19 U/L (14-59) 09/13/19 05:45 Alkaline Phosphatase 137 U/L (46-116) H 09/13/19 05:45 Total Protein 6.3 g/dL (6.4-8.2) L 09/13/19 05:45 Albumin 2.1 g/dL (3.4-5.0) L 09/13/19 05:45 Lipase 41 U/L (73-393) 09/12/19 17:53 Procalcitonin 6.1 ng/mL 09/12/19 19:41 Urine Color Yellow (Yellow) 09/14/19 12:30 Urine Clarity Cloudy (Clear) 09/14/19 12:30 Urine pH 6.0 (5-8) 09/14/19 12:30 Ur Specific [place] 1.025 (1.005-1.025) 09/14/19 12:30 Urine Protein 100 mg/dL (Negative) H 09/14/19 12:30 Urine Ketones 15 mg/dL (Negative) H 09/14/19 12:30 Urine Blood Moderate (Negative) H 09/14/19 12:30 Urine Nitrite Negative (Negative) 09/14/19 12:30 Urine Bilirubin Small (Negative) H 09/14/19 12:30 Urine Urobilinogen 4.0 EU/dL (Up TO 0.2) H 09/14/19 12:30 Ur Leukocyte Esterase Small (Negative) H 09/14/19 12:30 Urine RBC 3-5 HPF (0-2) H 09/14/19 12:30 Urine WBC 20-50 HPF (0-5) H 09/14/19 12:30 Ur Epithelial Cells Moderate HPF (Negative) 09/14/19 12:30 Urine Crystals Negative HPF (Negative) 09/14/19 12:30 Urine Bacteria Moderate HPF (Negative) 09/14/19 12:30 Urine Casts Negative LPF (Negative) 09/14/19 12:30 Urine Mucus Moderate (Negative) 09/14/19 12:30 Ur Culture Indicated? C&s done as ordered 09/14/19 12:30 Urine Glucose Negative mg/dL (Negative) 09/14/19 12:30 COVID-19 PCR Negative (Negative) 09/12/19 23:15 Nasopharyn COVID-19 PCR Not Applicable 09/12/19 23:15 Ref Test Perform Site [facility] lab 09/12/19 23:15
[2019-09-14] MEDS: LORazepam 2 MG/ML VIAL 0.5 MG IVP ×2 (17:14→18:48)
[2019-09-14] MEDS: Normal Saline 1,000 ML 80 ML IV (17:15)
[2019-09-14] MEDS: Normal Saline Flush 10 ML SYR IVP (17:15)
--- NOTE | 2019-09-14 18:16 | NUR.NOTE ---
16:50 Pt currently very confused , agitated, hallucinating and restless. trying to get out of bed stating that the dogs are crushing her. aware, T:38.2 bp 144/80 rr 20, hr 110 spo2 97%. sat dose of 0.5 mg ativan given, 650mg tylenol and NS 80mls/hr. 18:10 temp increased to 39.2, bp 152/84 hr 115 spo2 98% on RA RR: 22- PT is still hallucinating stating her which is , stealing her items and she needs to get away.Charge Nurse informed who in turn notified
--- NOTE | 2019-09-14 18:46 | NUR.NOTE ---
Nursing Note:Ceftriaxone 2 gm given at approx 2145 on 09/12/19, infused over 30 minutes through right wrist IV. Unable to document under MAR. CC on MS aware. MD was made aware, information was given in handoff report to ICU nurse on day of administration to ensure no second dose given.
[2019-09-14] MEDS: Normal Saline 250 ML IV (18:49)
[2019-09-14] MEDS: Ibuprofen 600 MG TAB PO (18:54)
[2019-09-14] MEDS: cefTRIAXone 2 GM/50 ML BAG IVPB (19:37)
[2019-09-14] MEDS: DOXYCYCLINE 100 MG in Normal Saline 100 ML IVPB (20:24)
[2019-09-14] MEDS: Nortriptyline 10 MG CAP PO (22:00)
[2019-09-15] VITALS (10 sets, daily range): BP systolic 121–160; BP diastolic 76–88; PULSE 84–120; RESP 18–22; TEMP 36.5–38.2; O2SAT 93–95
[2019-09-15] MEDS: Normal Saline 1,000 ML 80 ML IV (04:21)
[2019-09-15] MEDS: DOXYCYCLINE 100 MG in Normal Saline 100 ML IVPB (05:29)
[2019-09-15 06:45] LABS: Abs Immature Grans 0.11 10^3/uL (0.0-0.06); Absolute Basophil Count 0.01 10^3/uL (0.0-0.2); Absolute Lymphocyte Count 0.41 10^3/uL (1.2-3.4); Absolute Monocyte Count 0.38 10^3/uL (0.1-0.8); Absolute Neutrophil Count 7.89 10^3/uL (1.2-6.7); Basophils % 0.1; HCT 33.7 % (36.0-46.0); HGB 11.1 g/dL (11.2-15.7); Immature Grans % 1.3; Lymphocytes % 4.7; MCH 29.3 pg (27.0-33.0); MCHC 32.9 % (32.0-36.0); MCV 88.9 fL (80-95); Monocytes % 4.3; Neutrophils % 89.6; Platelet Count 222 10^3/uL (130-400); RBC 3.79 10^6/uL (3.93-5.22); RDW 14.5 % (11.7-14.6); RDW-SD 47.1 fL
[2019-09-15 06:58] LABS: Anion Gap 6.9 mmol/L (3-11); BUN 16 mg/dL (7-18); CO2 26.1 mmol/L (21.0-32.0); Calcium 8.9 mg/dL (8.5-10.1); Chloride 101 mmol/L (98-107); Glucose 125 mg/dL (74-106); Potassium 4.8 mmol/L (3.5-5.1); Sodium 134 mmol/L (136-145)
[2019-09-15 07:04] LABS: Hemoglobin A1C 7.1 % (3.8-5.6)
[2019-09-15] MEDS: Acetaminophen 325 MG TAB PO ×3 (07:17→20:56)
[2019-09-15] MEDS: Omeprazole 20 MG CAPCR PO (07:17)
[2019-09-15] MEDS: Heparin 5,000 UNITS/ML VIAL 5000 UNITS SC ×3 (08:41→23:28)
[2019-09-15] MEDS: Gabapentin 300 MG CAP 600 MG PO ×2 (08:41→19:45)
[2019-09-15] MEDS: Ibuprofen 600 MG TAB PO ×2 (08:41→18:08)
[2019-09-15] MEDS: Potassium Chloride 20 MEQ TABCR PO ×2 (08:41→16:59)
[2019-09-15] MEDS: Escitalopram 20 MG TAB PO (08:41)
[2019-09-15] MEDS: Normal Saline Flush 10 ML SYR 20 ML IVP ×2 (09:14→19:46)
--- NOTE | 2019-09-15 09:50 | CMPROGNOTE_ITS ---
Care Management Progress Note S/O: Flor remains acute, with ongoing fevers; she continues to be closely monitored and evaluated. Flor's COA Trim Technician, Shefali called this service writer, was briefed and transferred directly to Flor's room to connect with her. CM attempted to meet with Flor in the afternoon, though she was sleeping; CM . CM continues to follow. A: Flor is a 69 year old female admitted with pneumonia and UTI and a history of dementia. P: Flor will be discharged home when medically ready, she may benefit from short term PT and OT in the home; to be evaluated today. CM will continue to assess for discharge needs and coordinate services. Flor's daughter Nikki shared worries that Flor will not be able to care for her adopted children when she returns home. CM filed [facility] report for additional supports in the home. Flor also has good neighbors including Stephen Wilson ([phone]) who provide support to Flor and the children. [facility] intake number is [id number].
--- NOTE | 2019-09-15 10:19 | W.PM.PROGNOT ---
Date of Service Date of service: 09/15/19 Time of Service: 07:40 Assessment and Plan Assessment and plan (1) Diabetes mellitus: Status: Chronic Assessment and plan: Well controlled. Cont SS insulin A1c 7.1 Qualifiers: Diabetes mellitus type: type 2 Diabetes mellitus tank terminal gauger insulin use: with tank terminal gauger use Diabetes mellitus complication status: with kidney complications Diabetes mellitus complication detail: with chronic kidney disease Chronic kidney disease stage: stage 3 (moderate) Qualified Code(s): E11.22 - Type 2 diabetes mellitus with diabetic chronic kidney disease; N18.3 - Chronic kidney disease, stage 3 (moderate); Z79.4 - nursing home (current) use of insulin (2) Pneumonia: Status: Acute Assessment and plan: Afebrile today. Tolerated a dose of Ibuprofen last PM and fever resolved. Cont Rocephin. WBC count normalized. On RA Qualifiers: Pneumonia type: due to unspecified organism Laterality: left Lung location: lower lobe of lung Qualified Code(s): J18.9 - Pneumonia, unspecified organism (3) Delirium: Status: Acute Assessment and plan: Episode of delirium yesterday. Related to fever? Levaquin? Levaquin stopped; back on Rocephin. No further fever. Calm, cooperative this AM. Does have underlying, apparently early, dementia. Exam Narrative Exam Narrative: No F/C since last PM Still has diminished appetite but no abd pain/N/V. Thirsty and drinking liquids w/o difficulty. No SOA, cough. Const General: cooperative and no acute distress Nutritional Appearance: obese Resp Effort & Inspection: normal respiratory effort Auscultation: clear to auscultation bilaterally and diminished lung sounds Cardio Rate: regular rate Rhythm: regular rhythm Heart Sounds: S1 normal and S2 normal GI Inspection: normal to inspection and obesity Palpation: soft Auscultation: normal bowel sounds Extrem General: normal to inspection and no pedal edema Psych Appearance: grossly normal Speech and Movement: speech and movement normal Mood: euthymic mood Affect: blunted Thought Process: normal Objective Objective Clinical Data: Abnormal lab results 09/14/19 09/14/19 09/15/19 Range/Units 11:45 12:30 06:30 RBC 3.77 L 3.79 L (3.93-5.22) 10^6/uL Hgb 11.1 L 11.1 L (11.2-15.7) g/dL Hct 33.2 L 33.7 L (36.0-46.0) % Absolute Neutrophils 9.11 H 7.89 H (1.2-6.7) 10^3/uL Absolute Lymphocytes 0.47 L 0.41 L (1.2-3.4) 10^3/uL Sodium (136-145) mmol/L Glucose (74-106) mg/dL Hemoglobin A1c (3.8-5.6) % Urine Protein 100 H (Negative) mg/dL Urine Ketones 15 H (Negative) mg/dL Urine Blood Moderate H (Negative) Urine Bilirubin Small H (Negative) Urine Urobilinogen 4.0 H (Up TO 0.2) EU/dL Ur Leukocyte Esterase Small H (Negative) Urine RBC 3-5 H (0-2) HPF Urine WBC 20-50 H (0-5) HPF 09/15/19 09/15/19 Range/Units 06:30 06:30 RBC (3.93-5.22) 10^6/uL Hgb (11.2-15.7) g/dL Hct (36.0-46.0) % Absolute Neutrophils (1.2-6.7) 10^3/uL Absolute Lymphocytes (1.2-3.4) 10^3/uL Sodium 134 L (136-145) mmol/L Glucose 125 H (74-106) mg/dL Hemoglobin A1c 7.1 H (3.8-5.6) % Urine Protein (Negative) mg/dL Urine Ketones (Negative) mg/dL Urine Blood (Negative) Urine Bilirubin (Negative) Urine Urobilinogen (Up TO 0.2) EU/dL Ur Leukocyte Esterase (Negative) Urine RBC (0-2) HPF Urine WBC (0-5) HPF Vital Signs Temperature 37.5 C 09/15/19 07:00 Temperature Source Tympanic 09/15/19 07:00 Pulse 98 H 09/15/19 07:00 Pulse Rhythm Regular 09/15/19 07:23 Pulse 107 H 09/13/19 14:51 Respiratory Rate 22 09/15/19 07:00 Respiratory Effort Non-Labored 09/15/19 07:23 Respiratory Depth Normal 09/15/19 07:23 Respiratory Pattern Normal 09/15/19 07:23 Blood Pressure 150/79 H 09/15/19 07:00 Blood Pressure Mean 80 09/13/19 14:51 Blood Pressure Position Supine 09/13/19 01:19 Pulse Oximetry 93 L 09/15/19 07:00 Oxygen Delivery Method Room Air 09/15/19 07:00 Oxygen Flow Rate 0 09/15/19 07:00 Pain Level 3 09/15/19 08:41 Comment 09/14/19 15:20 Intake & Output 09/14/19 09/14/19 09/15/19 11:59 23:59 11:59 Intake Total 2008.333 / 2628.333 620 / 2628.333 1557.333 / 1557.333 Output Total 850 / 1650 800 / 1650 850 / 850 Balance 1158.333 / 978.333 -180 / 978.333 707.333 / 707.333 Intake: IV 1408.333 / 1508.333 100 / 9395.800 5728.333 / 1307.333 Oral 600 / 1120 520 / 1120 250 / 250 Output: Urine 850 / 1650 800 / 1650 850 / 850 Other: Urine Color Dark Tia Light Tia Light Tia Urine Appearance Clear Clear Clear Laboratory Results WBC 8.80 10^3/uL (4.4-10.8) 09/15/19 06:30 RBC 3.79 10^6/uL (3.93-5.22) L 09/15/19 06:30 Hgb 11.1 g/dL (11.2-15.7) L 09/15/19 06:30 Hct 33.7 % (36.0-46.0) L 09/15/19 06:30 MCV 88.9 fL (80-95) 09/15/19 06:30 MCH 29.3 pg (27.0-33.0) 09/15/19 06:30 MCHC 32.9 % (32.0-36.0) 09/15/19 06:30 RDW 14.5 % (11.7-14.6) 09/15/19 06:30 Plt Count 222 10^3/uL (130-400) 09/15/19 06:30 MPV 10.0 fL (8.0-11.0) 09/15/19 06:30 Immature Gran % 1.3 09/15/19 06:30 Neutrophils % 89.6 09/15/19 06:30 Lymphocytes % 4.7 09/15/19 06:30 Monocytes % 4.3 09/15/19 06:30 Eosinophils % 0.0 09/15/19 06:30 Basophils % 0.1 09/15/19 06:30 Absolute Neutrophils 7.89 10^3/uL (1.2-6.7) H 09/15/19 06:30 Absolute Lymphocytes 0.41 10^3/uL (1.2-3.4) L 09/15/19 06:30 Absolute Monocytes 0.38 10^3/uL (0.1-0.8) 09/15/19 06:30 Absolute Eosinophils 0.00 10^3/uL (0.0-0.7) 09/15/19 06:30 Absolute Basophils 0.01 10^3/uL (0.0-0.2) 09/15/19 06:30 PT 11.0 sec (9.3-11.0) 09/12/19 17:53 INR 1.1 (0.9-1.1) 09/12/19 17:53 Sodium 134 mmol/L (136-145) L 09/15/19 06:30 Potassium 4.8 mmol/L (3.5-5.1) 09/15/19 06:30 Chloride 101 mmol/L (98-107) 09/15/19 06:30 Carbon Dioxide 26.1 mmol/L (21.0-32.0) 09/15/19 06:30 Anion Gap 6.9 mmol/L (3-11) 09/15/19 06:30 BUN 16 mg/dL (7-18) 09/15/19 06:30 Creatinine 0.90 mg/dL (0.55-1.02) 09/15/19 06:30 Estimated GFR/1.73 m2 >= 60.00 (mL/min/1.73m2) 09/15/19 06:30 Glucose 125 mg/dL (74-106) H 09/15/19 06:30 Hemoglobin A1c 7.1 % (3.8-5.6) H 09/15/19 06:30 Lactate 1.4 mmol/L (0.6-1.4) 09/12/19 19:41 Calcium 8.9 mg/dL (8.5-10.1) 09/15/19 06:30 Magnesium 1.8 mg/dL (1.8-2.4) 09/13/19 05:45 Total Bilirubin 1.1 mg/dL (0.2-1.0) H 09/13/19 05:45 AST 16 U/L (15-37) 09/13/19 05:45 ALT 19 U/L (14-59) 09/13/19 05:45 Alkaline Phosphatase 137 U/L (46-116) H 09/13/19 05:45 Total Protein 6.3 g/dL (6.4-8.2) L 09/13/19 05:45 Albumin 2.1 g/dL (3.4-5.0) L 09/13/19 05:45 Lipase 41 U/L (73-393) 09/12/19 17:53 Procalcitonin 6.1 ng/mL 09/12/19 19:41 Urine Color Yellow (Yellow) 09/14/19 12:30 Urine Clarity Cloudy (Clear) 09/14/19 12:30 Urine pH 6.0 (5-8) 09/14/19 12:30 Ur Specific [place] 1.025 (1.005-1.025) 09/14/19 12:30 Urine Protein 100 mg/dL (Negative) H 09/14/19 12:30 Urine Ketones 15 mg/dL (Negative) H 09/14/19 12:30 Urine Blood Moderate (Negative) H 09/14/19 12:30 Urine Nitrite Negative (Negative) 09/14/19 12:30 Urine Bilirubin Small (Negative) H 09/14/19 12:30 Urine Urobilinogen 4.0 EU/dL (Up TO 0.2) H 09/14/19 12:30 Ur Leukocyte Esterase Small (Negative) H 09/14/19 12:30 Urine RBC 3-5 HPF (0-2) H 09/14/19 12:30 Urine WBC 20-50 HPF (0-5) H 09/14/19 12:30 Ur Epithelial Cells Moderate HPF (Negative) 09/14/19 12:30 Urine Crystals Negative HPF (Negative) 09/14/19 12:30 Urine Bacteria Moderate HPF (Negative) 09/14/19 12:30 Urine Casts Negative LPF (Negative) 09/14/19 12:30 Urine Mucus Moderate (Negative) 09/14/19 12:30 Ur Culture Indicated? C&s done as ordered 09/14/19 12:30 Urine Glucose Negative mg/dL (Negative) 09/14/19 12:30 COVID-19 PCR Negative (Negative) 09/12/19 23:15 Nasopharyn COVID-19 PCR Not Applicable 09/12/19 23:15 Ref Test Perform Site [facility] lab 09/12/19 23:15
--- NOTE | 2019-09-15 11:07 | DM INPTCON_ITS ---
Date of service: 09/15/19 Time of Service: 11:07 Diabetes Inpatient Consult DESCRIPTION/ASSESSMENT: 69 year old female admitted with delirium secondary to UTI, PNA with systemic inflammatory response syndrome, PMH: DM, COPD, HTN, dementia. Lives with 3 adopted children. Hx of poor po prior to admission. BMI indicates class 1 obesity. Home meds include glyburide, insulin prior to meals. Met with Flor and daughter today for inpatient diabetes education. Daughter reports recent weight loss, and hx of poor intake for > 3 months prior to admission. Chart review indicates > 20 lbs weight loss in last 6 months. Flor reports not taking insulin for last year despite prescribed. Recent A1C: 7.1% and blood sugars during this admission moderately well controlled. With recent weight loss, may no longer need insulin for adequate blood sugar control. Has had difficulty in last couple of months to follow diabetic diet, some days skips many meals. Reports no food insecurity. Cause of weight loss/skipping meals unclear per conversation with Flor and daughter, may be due to dementia, decline of ability to care for self. Daughter here today does not live with Flor. PO intake since admission has been very poor. Estimated needs: 8386-4345 kcal, 65-75 g protein. > 80% of meal completion will meet nutrient needs. Currently not meeting nutrient needs. At high risk for continued nutritional decline. Nutritional Diagnosis: non severe Malnutrition in context of chronic illness as evidenced by recent weight loss, lack of meeting nutrient needs due to self monitoring deficit due to dementia. Intervention: provided contact information for radio script writer, given to daughter if follow up needed. Monitor intake at all meals Plan: continue current meal plan, encourage intake with meal preferences, at discharge provide home health services, meals on wheels, will follow closely and make recommendations as warranted. Time Spent in Nutritional Counseling and Treatment: 15 min spent face to face
--- NOTE | 2019-09-15 11:59 | CHAPLAIN ---
Flor was in bed when I visited. Her adult daughter was visiting with her. Flor has adult children and also an 18, 16 and 12 year old at home. These are adopted children. Flor's in January. Flor said he had cancer that was in remission and then returned. He did not let Flor know the severity of this condition, according to Flor so she wasn't able to prepare herself, or the three youngest children, for his . This is still seems to be an issue for Flor. Care Management as filed a report with [facility] as Flor's three youngest children, one with special needs, have been left at home while Flor is here. A neighbor near their [facility] home, Stephen Wilson, has been checking on the kids. Her grandson, Jayson, is an [employer] here, working at nights. I explained my role and offered Flor support. I will check in again with her.
[2019-09-15] MEDS: Insulin Aspart 300 UNITS/3 ML PEN SC ×2 (12:00→16:55)
--- NOTE | 2019-09-15 15:29 | PT.INTREAT ---
Date of service: 09/15/19 Time of Service: 15:00 PT Notes Visit Reasons: UTI,PNEUMONIA Inpatient Physical Therapy Treatment Note [facility] Date: 09/15/2019 SUBJECTIVE: Flor reports that she is worried about kids at home. She has a goal to return to them in about 2 days. She c/o dizzy with mvmt. OBJECTIVE: [] BED MOBILITY/TRANSFERS Supine-sit: SBA Sit-supine:min A with LE Sit-stand:min A/CGA X4 Stand-sit: CGA X4 GAIT Assistive Device: FWW Weight bearing: FWB Assist: CGA Distance: 5' stood x 2-5 min each time she stood. performed some wt shifting side to side. ASSESSMENT: very tearful this am. Tired, and dizzy. Daughter reports that she really hasn't rested, and her nutrition is poor. I was unable to rouse her this pm. She was sleeping. Daughter requested she sleep, and hoping to be better tomorrow. PLAN: continue to progress following PT POC. TREATMENT CODE/TIME: 15 min [id number]
[2019-09-15] MEDS: Phenazopyridine 100 MG TAB PO (19:45)
[2019-09-15] MEDS: cefTRIAXone 2 GM/50 ML BAG IVPB (19:46)
[2019-09-15] MEDS: Polyethylene Glycol 3350 17 GM PACKET PO (20:11)
[2019-09-15] MEDS: Docusate Sodium 100 MG CAP PO (20:11)
[2019-09-15] MEDS: Normal Saline Flush 10 ML SYR IVP ×2 (20:52→22:00)
[2019-09-15] MEDS: LORazepam 2 MG/ML VIAL 0.5 MG IVP ×2 (20:52→22:00)
[2019-09-15] MEDS: Nortriptyline 10 MG CAP PO (21:27)
[2019-09-16] VITALS (8 sets, daily range): BP systolic 107–135; BP diastolic 64–89; PULSE 82–95; RESP 5–19; TEMP 35.5–37.7; O2SAT 92–93
[2019-09-16] MEDS: Heparin 5,000 UNITS/ML VIAL 5000 UNITS SC ×2 (07:43→16:03)
[2019-09-16] MEDS: Acetaminophen 325 MG TAB PO (07:43)
[2019-09-16] MEDS: Nystatin POWDER 60 GM JAR TP (07:44)
[2019-09-16] MEDS: Escitalopram 20 MG TAB PO (07:44)
[2019-09-16] MEDS: Omeprazole 20 MG CAPCR PO (07:44)
[2019-09-16] MEDS: Gabapentin 300 MG CAP 600 MG PO ×2 (07:44→19:48)
[2019-09-16] MEDS: Normal Saline Flush 10 ML SYR 20 ML IVP ×2 (08:03→19:48)
[2019-09-16] MEDS: Potassium Chloride 20 MEQ TABCR PO ×2 (08:03→17:10)
[2019-09-16 08:12] LABS: Abs Immature Grans 0.19 10^3/uL (0.0-0.06); Absolute Basophil Count 0.01 10^3/uL (0.0-0.2); Absolute Eosinophil Count 0.01 10^3/uL (0.0-0.7); Absolute Lymphocyte Count 0.67 10^3/uL (1.2-3.4); Absolute Neutrophil Count 6.35 10^3/uL (1.2-6.7); Basophils % 0.1; Eosinophils % 0.1; HGB 10.8 g/dL (11.2-15.7); Immature Grans % 2.4; Lymphocytes % 8.6; MCHC 32.7 % (32.0-36.0); MCV 88.7 fL (80-95); MPV 9.5 fL (8.0-11.0); Monocytes % 7.7; Neutrophils % 81.1; Platelet Count 236 10^3/uL (130-400); RBC 3.72 10^6/uL (3.93-5.22); RDW 14.7 % (11.7-14.6); RDW-SD 47.6 fL; WBC 7.83 10^3/uL (4.4-10.8)
[2019-09-16] MEDS: Insulin Aspart 300 UNITS/3 ML PEN SC ×3 (08:15→17:10)
[2019-09-16] MEDS: Albuterol/Ipratropium 3 ML UPD VIAL UPD (09:12)
--- NOTE | 2019-09-16 09:46 | PGE_ITS ---
Date of Service Date of service: 09/16/19 Time of Service: 09:46 Assessment and Plan Assessment and plan (1) Diabetes mellitus: Status: Chronic Assessment and plan: On SS insulin correction dose. On Trajenta and glipizide at home. Monitor Qualifiers: Diabetes mellitus type: type 2 Diabetes mellitus foundry operator insulin use: with nursing home use Diabetes mellitus complication status: with kidney complications Diabetes mellitus complication detail: with chronic kidney disease Chronic kidney disease stage: stage 3 (moderate) Qualified Code(s): E11.22 - Type 2 diabetes mellitus with diabetic chronic kidney disease; N18.3 - Chronic kidney disease, stage 3 (moderate); Z79.4 - care home (current) use of insulin (2) Pneumonia: Status: Acute Assessment and plan: L retrocardia consolidation. On Rocephin. Low grade fever yesterday evening. PRN acetaminophen or Ibuprofen. 1 of 2 blood culture bottles growing gram + cocci in clusters. Contaminant. Did initiate Vancomycin. Final antibiotic choice to be decided after culture results are final. PRN nebs. Acapella. Qualifiers: Pneumonia type: due to unspecified organism Laterality: left Lung location: lower lobe of lung Qualified Code(s): J18.9 - Pneumonia, unspecified organism Subjective Subjective Interval history since last seen: Pt is lethargic this AM. Minimally interactive. Does state she has no appetite; no N/V/abd pain. Exam Const General: no acute distress Nutritional Appearance: obese Orientation: confused and other (sleepy/lethargic) Resp Effort & Inspection: normal respiratory effort Auscultation: diminished lung sounds and rhonchi (anterior lung bruner) Cardio Rate: regular rate Rhythm: regular rhythm Heart Sounds: S1 normal and S2 normal GI Inspection: normal to inspection Palpation: soft and tender (mild, diffuse) Extrem General: normal to inspection and no pedal edema Objective Objective Clinical Data: Abnormal lab results 09/16/19 Range/Units 08:00 RBC 3.72 L (3.93-5.22) 10^6/uL Hgb 10.8 L (11.2-15.7) g/dL Hct 33.0 L (36.0-46.0) % RDW 14.7 H (11.7-14.6) % Absolute Lymphocytes 0.67 L (1.2-3.4) 10^3/uL Vital Signs Temperature 37.1 C 09/16/19 07:22 Temperature Source Tympanic 09/16/19 07:22 Pulse 95 H 09/16/19 09:12 Pulse Rhythm Regular 09/16/19 08:40 Pulse 107 H 09/13/19 14:51 Respiratory Rate 16 09/16/19 09:12 Respiratory Effort Non-Labored 09/16/19 08:40 Respiratory Depth Normal 09/16/19 08:40 Respiratory Pattern Normal 09/16/19 08:40 Blood Pressure 135/83 09/16/19 07:22 Blood Pressure Mean 80 09/13/19 14:51 Blood Pressure Position Supine 09/13/19 01:19 Pulse Oximetry 92 L 09/16/19 09:12 Oxygen Delivery Method Room Air 09/16/19 09:12 Oxygen Flow Rate 0 09/16/19 09:12 Pain Level 1 09/16/19 07:43 Comment 09/14/19 15:20 Intake & Output 09/15/19 09/15/19 09/16/19 11:59 23:59 11:59 Intake Total 1797.333 / 2277.333 480 / 2277.333 240 / 240 Output Total 850 / 1250 400 / 1250 1500 / 1500 Balance 947.333 / 1027.333 80 / 1027.333 -1260 / -1260 Weight 105.4 kg 104.9 kg Intake: IV 1307.333 / 1307.333 Oral 490 / 970 480 / 970 240 / 240 Output: Urine 850 / 1250 400 / 1250 1500 / 1500 Other: Urine Color Light Tia Light Tia Light Tia Urine Appearance Clear Clear Clear Laboratory Results WBC 7.83 10^3/uL (4.4-10.8) 09/16/19 08:00 RBC 3.72 10^6/uL (3.93-5.22) L 09/16/19 08:00 Hgb 10.8 g/dL (11.2-15.7) L 09/16/19 08:00 Hct 33.0 % (36.0-46.0) L 09/16/19 08:00 MCV 88.7 fL (80-95) 09/16/19 08:00 MCH 29.0 pg (27.0-33.0) 09/16/19 08:00 MCHC 32.7 % (32.0-36.0) 09/16/19 08:00 RDW 14.7 % (11.7-14.6) H 09/16/19 08:00 Plt Count 236 10^3/uL (130-400) 09/16/19 08:00 MPV 9.5 fL (8.0-11.0) 09/16/19 08:00 Immature Gran % 2.4 09/16/19 08:00 Neutrophils % 81.1 09/16/19 08:00 Lymphocytes % 8.6 09/16/19 08:00 Monocytes % 7.7 09/16/19 08:00 Eosinophils % 0.1 09/16/19 08:00 Basophils % 0.1 09/16/19 08:00 Absolute Neutrophils 6.35 10^3/uL (1.2-6.7) 09/16/19 08:00 Absolute Lymphocytes 0.67 10^3/uL (1.2-3.4) L 09/16/19 08:00 Absolute Monocytes 0.60 10^3/uL (0.1-0.8) 09/16/19 08:00 Absolute Eosinophils 0.01 10^3/uL (0.0-0.7) 09/16/19 08:00 Absolute Basophils 0.01 10^3/uL (0.0-0.2) 09/16/19 08:00 PT 11.0 sec (9.3-11.0) 09/12/19 17:53 INR 1.1 (0.9-1.1) 09/12/19 17:53 Sodium 134 mmol/L (136-145) L 09/15/19 06:30 Potassium 4.8 mmol/L (3.5-5.1) 09/15/19 06:30 Chloride 101 mmol/L (98-107) 09/15/19 06:30 Carbon Dioxide 26.1 mmol/L (21.0-32.0) 09/15/19 06:30 Anion Gap 6.9 mmol/L (3-11) 09/15/19 06:30 BUN 16 mg/dL (7-18) 09/15/19 06:30 Creatinine 0.90 mg/dL (0.55-1.02) 09/15/19 06:30 Estimated GFR/1.73 m2 >= 60.00 (mL/min/1.73m2) 09/15/19 06:30 Glucose 125 mg/dL (74-106) H 09/15/19 06:30 Hemoglobin A1c 7.1 % (3.8-5.6) H 09/15/19 06:30 Lactate 1.4 mmol/L (0.6-1.4) 09/12/19 19:41 Calcium 8.9 mg/dL (8.5-10.1) 09/15/19 06:30 Magnesium 1.8 mg/dL (1.8-2.4) 09/13/19 05:45 Total Bilirubin 1.1 mg/dL (0.2-1.0) H 09/13/19 05:45 AST 16 U/L (15-37) 09/13/19 05:45 ALT 19 U/L (14-59) 09/13/19 05:45 Alkaline Phosphatase 137 U/L (46-116) H 09/13/19 05:45 Total Protein 6.3 g/dL (6.4-8.2) L 09/13/19 05:45 Albumin 2.1 g/dL (3.4-5.0) L 09/13/19 05:45 Lipase 41 U/L (73-393) 09/12/19 17:53 Procalcitonin 6.1 ng/mL 09/12/19 19:41 Urine Color Yellow (Yellow) 09/14/19 12:30 Urine Clarity Cloudy (Clear) 09/14/19 12:30 Urine pH 6.0 (5-8) 09/14/19 12:30 Ur Specific [place] 1.025 (1.005-1.025) 09/14/19 12:30 Urine Protein 100 mg/dL (Negative) H 09/14/19 12:30 Urine Ketones 15 mg/dL (Negative) H 09/14/19 12:30 Urine Blood Moderate (Negative) H 09/14/19 12:30 Urine Nitrite Negative (Negative) 09/14/19 12:30 Urine Bilirubin Small (Negative) H 09/14/19 12:30 Urine Urobilinogen 4.0 EU/dL (Up TO 0.2) H 09/14/19 12:30 Ur Leukocyte Esterase Small (Negative) H 09/14/19 12:30 Urine RBC 3-5 HPF (0-2) H 09/14/19 12:30 Urine WBC 20-50 HPF (0-5) H 09/14/19 12:30 Ur Epithelial Cells Moderate HPF (Negative) 09/14/19 12:30 Urine Crystals Negative HPF (Negative) 09/14/19 12:30 Urine Bacteria Moderate HPF (Negative) 09/14/19 12:30 Urine Casts Negative LPF (Negative) 09/14/19 12:30 Urine Mucus Moderate (Negative) 09/14/19 12:30 Ur Culture Indicated? C&s done as ordered 09/14/19 12:30 Urine Glucose Negative mg/dL (Negative) 09/14/19 12:30 COVID-19 PCR Negative (Negative) 09/12/19 23:15 Nasopharyn COVID-19 PCR Not Applicable 09/12/19 23:15 Ref Test Perform Site [facility] lab 09/12/19 23:15
[2019-09-16] MEDS: Ibuprofen 600 MG TAB PO (12:51)
--- NOTE | 2019-09-16 13:29 | PT.INTREAT ---
Date of service: 09/16/19 Time of Service: 13:29 PT Notes Visit Reasons: UTI,PNEUMONIA Inpatient Physical Therapy Treatment Note [facility] Date: 09/16/2019 SUBJECTIVE: Flor initially was easy to engage at the start, being able to do seated level exercises but later appeared stressed and unable to focus during treatment session. She indicated that her daughter came in earlier today and stated that the State may take away her younger three kids if she does not get better. Flor was teary-eyed when she was sharing this with this PT. She agrees that she needs to work hard so she can get better but voices that she gets dizzy when she tries to get up. She appears to have fear of falling. She endorses that she is tired and sleepy and wanted to get back to bed at the end of the session. OBJECTIVE: Seen sitting on chair and was assisted back to bed at the end of session. IV access in L UE. BED MOBILITY/TRANSFERS Sit-stand:minimal assist Stand-sit: CGA Sit-supine: min A to B LE Chair to bed: Minimal assist THERA EX: Tolerated seated level exercises to swing of L leg x10, action, and ankle PF/DF x10 with no significant difficulty. GAIT Assistive Device: FWW Weight bearing: FWB Assist: CGA Distance: 5' + 4' + 3 sidesteps Deviation: Steps appear cautious and hesitant. Patient fearful of falling. Reported dizziness stating that she feels like she is going to fall back. SPECIAL TESTs: [place]-Hallpike Maneuver performed with no nystagmus observed. Patient did report dizziness when she closes her eyes. Flor also tested negative for the supine head roll test. ASSESSMENT: Patient tested negative for benign paroxysmal positional vertigo as evidenced by negative [place]-Hallpike maneuver and supine head roll test. She demonstrates lack of motivation to progress and requires extensive encouragement to participate in therapy. PLAN: Flor may benefit from early intervention to address signs of depression. Continue with skilled PT services to attempt to address ongoing mobility impairments. DISCHARGE RECOMMENDATION: Patient will benefit from assisted facility placement for continued skilled physical therapy services in order to progress mobility level, strength, and balance in preparation for a safe discharge to home. TREATMENT CODE/TIME: 9753 0 x 25 minutes, 9711 0 x 16 minutes beginning at 13:29 PM.
--- NOTE | 2019-09-16 13:36 | PDOC.CMPRO ---
Care Management Progress Note S/O: Flor is lethargic this morning and minimally interactive. CM spoke to her daughter, Vicente who Flor told to leave today when she attempted discussing Flor and the children's care needs. Concern that Flor will be unable to continue managing care needs. Vicente reports Larissa is caring for her siblings, and doing a great job. CM called DCF to inquire if report was accepted, notification that report was not accepted. CM updated report with behavioral concerns requiring medication last evening, as well as Flor's refusal to accept additional help from her daughter at this time. CM answered questions and relayed information that Flor's confusion appears to center around fever at this time. CM continues to follow and will update as appropriate. A: Flor is a 69 year old female admitted with pneumonia and UTI and a history of dementia. P: Flor will be discharged home when medically ready, she may benefit from short term PT and OT in the home; to be evaluated today. Anticipate increased services and pairing of social work to support this family in making decisions moving forward. CM will continue to assess for discharge needs and coordinate services. DCF contact number is and the report number is [id number]. CM did review the plan with Flor's friend Stephen there are several people watching over the children in the community making sure they are safe. DCF is aware that the children are home independently. CM spoke Flor's adult daughter and updated her on the situation and her friend Stephen who is local to the home. CM will continue to assess for discharge need and will continue to support patient and family, discharge planning.
--- NOTE | 2019-09-16 14:48 | CHAPLAIN ---
Flor was resting in bed when I visited. She seemed tired, but wanted to talk. She said she was upset about her daughter Vicente visiting yesterday and upsetting everything, after not being here for a long time. (There is concern about Flor's three children, 18, 16 and 12 being home alone. The 16 year-old daughter is in charge.) Flor's , and the children's father seven months ago. Flor said Genny did not like Flor's , and said so. Genny arrived today to visit and Flor asked her to leave. If she returns, Genny said she would be welcomed. Flor is concerned about the children, as well as Genny's involvement and also worried about her own health issues.
[2019-09-16] MEDS: Phenazopyridine 100 MG TAB PO (17:28)
[2019-09-16] MEDS: Docusate Sodium 100 MG CAP PO (17:28)
[2019-09-16] MEDS: cefTRIAXone 2 GM/50 ML BAG IVPB (19:48)
[2019-09-16] MEDS: Nortriptyline 10 MG CAP PO (21:09)
[2019-09-17] MEDS: Heparin 5,000 UNITS/ML VIAL 5000 UNITS SC ×3 (00:20→16:43)
[2019-09-17 03:00] VITALS: BP 127/64; PULSE 97; RESP 17; TEMP 37.3; O2SAT 91
[2019-09-17] MEDS: Docusate Sodium 100 MG CAP PO (06:25)
[2019-09-17 06:40] LABS: HCT 33.5 % (36.0-46.0); HGB 10.7 g/dL (11.2-15.7); MCH 28.2 pg (27.0-33.0); MCHC 31.9 % (32.0-36.0); MCV 88.4 fL (80-95); MPV 9.7 fL (8.0-11.0); Nucleated RBC 0 %; Platelet Count 305 10^3/uL (130-400); RBC 3.79 10^6/uL (3.93-5.22); RDW-SD 48.4 fL; WBC 7.03 10^3/uL (4.4-10.8)
[2019-09-17 06:41] LABS: Anion Gap 8.4 mmol/L (3-11); BUN 14 mg/dL (7-18); CO2 25.6 mmol/L (21.0-32.0); Calcium 9.6 mg/dL (8.5-10.1); Chloride 99 mmol/L (98-107); Glucose 186 mg/dL (74-106); Potassium 4.7 mmol/L (3.5-5.1); Sodium 133 mmol/L (136-145)
[2019-09-17 07:33] LABS: Absolute Lymphocyte Count 0.98 10^3/uL (1.2-3.4); Absolute Monocyte Count 0.35 10^3/uL (0.1-0.8); Absolute Neutrophil Count 5.55 10^3/uL (1.2-6.7); Atypical Lymphocytes % 2; Bands % 3; Metamyelocytes % 2
[2019-09-17 07:34] LABS: Diff Comment Manual Differential; RBC Morphology Normal
[2019-09-17 08:01] VITALS: BP 115/77; PULSE 102; RESP 19; TEMP 36.5; O2SAT 94
[2019-09-17] MEDS: Insulin Aspart 300 UNITS/3 ML PEN SC ×3 (08:22→17:42)
[2019-09-17] MEDS: Omeprazole 20 MG CAPCR PO (08:22)
[2019-09-17] MEDS: Escitalopram 20 MG TAB PO (08:22)
[2019-09-17] MEDS: Gabapentin 300 MG CAP 600 MG PO ×2 (08:22→19:40)
[2019-09-17] MEDS: Normal Saline Flush 10 ML SYR 20 ML IVP ×2 (08:32→19:39)
[2019-09-17] MEDS: Potassium Chloride 20 MEQ TABCR PO ×2 (10:06→17:42)
--- NOTE | 2019-09-17 11:10 | PDOC.CMPRO ---
- If Service Date Differs Date of service: 09/17/19 Time of Service: 11:10 Care Management Progress Note S/O: Flor was sitting up in bed when CM met with her. At the time she was trying to reach her 16 year old daughter and seemed to be having difficulty dialing the number. With assistance the number was dialed but was met with a busy signal. Flor did not fully engage with CM and answered questions with minimal responses. She did state that she believed she would be able to return home tomorrow. She verbalized that she was agreeable to home health. PT expressed concern that Flor was not participating fully with therapy. She shared with them that she was tired and was unwilling to ambulate beyond the room. CM attempted a second visit in the afternoon but Flor was sound asleep and CM did not disturb her. A: Flor is a 69 year old female admitted with pneumonia and UTI and a history of dementia. P: Flor will be discharged home when medically ready; she may benefit from short term PT and OT in the home. Anticipate increased services and pairing of social work to support this family in making decisions moving forward. CM will continue to assess for discharge needs and coordinate services.
[2019-09-17 11:36] VITALS: O2SAT 93
[2019-09-17 11:42] VITALS: BP 132/81; PULSE 101; RESP 19; TEMP 37.1; O2SAT 93
[2019-09-17] MEDS: Furosemide 20 MG TAB PO (11:54)
--- NOTE | 2019-09-17 12:33 | PGE_ITS ---
Date of Service Date of service: 09/17/19 Time of Service: 12:34 Assessment and Plan Assessment and plan (1) Diabetes mellitus: Status: Chronic Assessment and plan: Glucose 166 this AM Cont SS insulin. Qualifiers: Diabetes mellitus type: type 2 Diabetes mellitus penitentiary insulin use: with penitentiary use Diabetes mellitus complication status: with kidney complications Diabetes mellitus complication detail: with chronic kidney disease Chronic kidney disease stage: stage 3 (moderate) Qualified Code(s): E11.22 - Type 2 diabetes mellitus with diabetic chronic kidney disease; N18.3 - Chronic kidney disease, stage 3 (moderate); Z79.4 - nursing home (current) use of insulin (2) Pneumonia: Status: Acute Assessment and plan: WBC count normalized Clinically improving. On Rocephin. Change to oral antibiotic tomorrow likely. Cont PT Pt desires to d/c to home with HH. Qualifiers: Pneumonia type: due to unspecified organism Laterality: left Lung location: lower lobe of lung Qualified Code(s): J18.9 - Pneumonia, unspecified organism Subjective Subjective Interval history since last seen: Appetite has improved. She states she is ambulating to the commode w/o any significant difficulty. No SOA. No elevated temp since 09/14. Exam Const General: cooperative Nutritional Appearance: obese Orientation: alert, oriented to person and oriented to place Resp Effort & Inspection: normal respiratory effort Auscultation: rhonchi left upper and right upper Cardio Rate: regular rate Rhythm: regular rhythm Heart Sounds: S1 normal and S2 normal Extrem General: normal to inspection and no clubbing, cyanosis or edema Psych Appearance: grossly normal Mental Status: mental status grossly normal Speech and Movement: speech and movement normal Affect: blunted Thought Process: normal Objective Objective Clinical Data: Abnormal lab results 09/17/19 09/17/19 Range/Units 06:20 06:20 RBC 3.79 L (3.93-5.22) 10^6/uL Hgb 10.7 L (11.2-15.7) g/dL Hct 33.5 L (36.0-46.0) % MCHC 31.9 L (32.0-36.0) % RDW 15.0 H (11.7-14.6) % Absolute Lymphocytes 0.98 L (1.2-3.4) 10^3/uL Sodium 133 L (136-145) mmol/L Glucose 186 H (74-106) mg/dL Vital Signs Temperature 37.1 C 09/17/19 11:42 Temperature Source Tympanic 09/17/19 11:42 Pulse 101 H 09/17/19 11:42 Pulse Rhythm Regular 09/17/19 02:30 Pulse 107 H 09/13/19 14:51 Respiratory Rate 19 09/17/19 11:42 Respiratory Effort 09/17/19 10:14 Respiratory Depth Normal 09/17/19 10:14 Respiratory Pattern Normal 09/17/19 10:14 Blood Pressure 132/81 09/17/19 11:42 Blood Pressure Mean 80 09/13/19 14:51 Blood Pressure Position Supine 09/13/19 01:19 Pulse Oximetry 93 L 09/17/19 11:42 Oxygen Delivery Method Room Air 09/17/19 11:42 Oxygen Flow Rate 0 09/17/19 11:42 Pain Level 0 09/17/19 11:42 Comment 09/14/19 15:20 Intake & Output 09/16/19 09/17/19 09/17/19 23:59 11:59 23:59 Intake Total 1060 / 1300 220 / 220 Output Total 1600 / 1600 Balance 1060 / -500 -1380 / -1380 Weight 105.6 kg Intake: IV Oral 1040 / 1280 200 / 200 Output: Urine 1600 / 1600 Other: Urine Color [place] Urine Appearance Clear Urine Odor Normal Comment mcclendon removed at 1130. Pt unable to void at this time. Phenazopyridine given. will attempt to help pt to commode again within a hour. Voiding Methods Bedside Commode Laboratory Results WBC 7.03 10^3/uL (4.4-10.8) 09/17/19 06:20 RBC 3.79 10^6/uL (3.93-5.22) L 09/17/19 06:20 Hgb 10.7 g/dL (11.2-15.7) L 09/17/19 06:20 Hct 33.5 % (36.0-46.0) L 09/17/19 06:20 MCV 88.4 fL (80-95) 09/17/19 06:20 MCH 28.2 pg (27.0-33.0) 09/17/19 06:20 MCHC 31.9 % (32.0-36.0) L 09/17/19 06:20 RDW 15.0 % (11.7-14.6) H 09/17/19 06:20 Plt Count 305 10^3/uL (130-400) 09/17/19 06:20 MPV 9.7 fL (8.0-11.0) 09/17/19 06:20 Immature Gran % See Differential 09/17/19 06:20 Neutrophils % 76.0 09/17/19 06:20 Band Neutrophils % 3 09/17/19 06:20 Lymphocytes % 12.0 09/17/19 06:20 Atypical Lymphs % 2 09/17/19 06:20 Monocytes % 5.0 09/17/19 06:20 Eosinophils % 0.0 09/17/19 06:20 Basophils % 0.0 09/17/19 06:20 Metamyelocytes % 2 09/17/19 06:20 Absolute Neutrophils 5.55 10^3/uL (1.2-6.7) 09/17/19 06:20 Absolute Lymphocytes 0.98 10^3/uL (1.2-3.4) L 09/17/19 06:20 Absolute Monocytes 0.35 10^3/uL (0.1-0.8) 09/17/19 06:20 Absolute Eosinophils 0.00 10^3/uL (0.0-0.7) 09/17/19 06:20 Absolute Basophils 0.00 10^3/uL (0.0-0.2) 09/17/19 06:20 RBC Morphology Normal 09/17/19 06:20 PT 11.0 sec (9.3-11.0) 09/12/19 17:53 INR 1.1 (0.9-1.1) 09/12/19 17:53 Sodium 133 mmol/L (136-145) L 09/17/19 06:20 Potassium 4.7 mmol/L (3.5-5.1) 09/17/19 06:20 Chloride 99 mmol/L (98-107) 09/17/19 06:20 Carbon Dioxide 25.6 mmol/L (21.0-32.0) 09/17/19 06:20 Anion Gap 8.4 mmol/L (3-11) 09/17/19 06:20 BUN 14 mg/dL (7-18) 09/17/19 06:20 Creatinine 0.80 mg/dL (0.55-1.02) 09/17/19 06:20 Estimated GFR/1.73 m2 >= 60.00 (mL/min/1.73m2) 09/17/19 06:20 Glucose 186 mg/dL (74-106) H 09/17/19 06:20 Hemoglobin A1c 7.1 % (3.8-5.6) H 09/15/19 06:30 Lactate 1.4 mmol/L (0.6-1.4) 09/12/19 19:41 Calcium 9.6 mg/dL (8.5-10.1) 09/17/19 06:20 Magnesium 1.8 mg/dL (1.8-2.4) 09/13/19 05:45 Total Bilirubin 1.1 mg/dL (0.2-1.0) H 09/13/19 05:45 AST 16 U/L (15-37) 09/13/19 05:45 ALT 19 U/L (14-59) 09/13/19 05:45 Alkaline Phosphatase 137 U/L (46-116) H 09/13/19 05:45 Total Protein 6.3 g/dL (6.4-8.2) L 09/13/19 05:45 Albumin 2.1 g/dL (3.4-5.0) L 09/13/19 05:45 Lipase 41 U/L (73-393) 09/12/19 17:53 Procalcitonin 6.1 ng/mL 09/12/19 19:41 Urine Color Yellow (Yellow) 09/14/19 12:30 Urine Clarity Cloudy (Clear) 09/14/19 12:30 Urine pH 6.0 (5-8) 09/14/19 12:30 Ur Specific [place] 1.025 (1.005-1.025) 09/14/19 12:30 Urine Protein 100 mg/dL (Negative) H 09/14/19 12:30 Urine Ketones 15 mg/dL (Negative) H 09/14/19 12:30 Urine Blood Moderate (Negative) H 09/14/19 12:30 Urine Nitrite Negative (Negative) 09/14/19 12:30 Urine Bilirubin Small (Negative) H 09/14/19 12:30 Urine Urobilinogen 4.0 EU/dL (Up TO 0.2) H 09/14/19 12:30 Ur Leukocyte Esterase Small (Negative) H 09/14/19 12:30 Urine RBC 3-5 HPF (0-2) H 09/14/19 12:30 Urine WBC 20-50 HPF (0-5) H 09/14/19 12:30 Ur Epithelial Cells Moderate HPF (Negative) 09/14/19 12:30 Urine Crystals Negative HPF (Negative) 09/14/19 12:30 Urine Bacteria Moderate HPF (Negative) 09/14/19 12:30 Urine Casts Negative LPF (Negative) 09/14/19 12:30 Urine Mucus Moderate (Negative) 09/14/19 12:30 Ur Culture Indicated? C&s done as ordered 09/14/19 12:30 Urine Glucose Negative mg/dL (Negative) 09/14/19 12:30 COVID-19 PCR Negative (Negative) 09/12/19 23:15 Nasopharyn COVID-19 PCR Not Applicable 09/12/19 23:15 Ref Test Perform Site [place] [facility] 09/12/19 23:15
--- NOTE | 2019-09-17 14:39 | PT.INTREAT ---
Date of service: 09/17/19 Time of Service: 14:39 PT Notes Visit Reasons: UTI,PNEUMONIA Inpatient Physical Therapy Treatment Note [facility] Date: 09/17/2019 SUBJECTIVE: Flor continues to get discouraged by the knowing about the potential plan of the state to get custody of her kids. She complains about being tired, not wanting to do anything, and just working on calling her other daughter to check on her younger kids. She refused doing any seated exercises and complains that she is too tired to go for a walk. She is agreeable to being assisted with short distance ambulation inside her room to transfer to and from chair and to and from commode. Did not complain of any dizziness today. OBJECTIVE: Appeared significantly stressed and lacking any motivation to do anything. BED MOBILITY/TRANSFERS Supine to sit: SBA Sit-stand: CGA Stand-sit: CGA Chair to bed: CGA THERA EX: Refused to do any exercises GAIT Assistive Device: FWW Weight bearing: FWB Assist: SBA Distance: 10 feet in the a.m. and 5 feet in the afternoon. Deviation: Steps appear cautious and hesitant. Patient fearful of falling. No report of dizziness today. ASSESSMENT: Flor continues to demonstrate lack of motivation to progress and requires extensive encouragement to participate in therapy. When asked what her goals are in physical therapy and when questioned whether she wanted to work towards her mobility goals, patient got defensive and started crying. She was reassured and was thankful about the assistance she received today from this PT. manager community development Charline has been updated about this encounter today and was apprised about patient's overall performance in and attitude towards physical therapy. PLAN: Flor may benefit from early intervention to address signs of depression. Continue with skilled PT services to attempt to address ongoing mobility impairments. DISCHARGE RECOMMENDATION: Patient will benefit from nursing home facility placement for continued skilled physical therapy services in order to progress mobility level, strength, and balance in preparation for a safe discharge to home. TREATMENT CODE/TIME: 22273 x 20 minutes in the morning beginning at 11:50 AM, 83529 x 16 minutes beginning at 14:39 PM.
[2019-09-17 16:15] VITALS: BP 141/82; PULSE 88; RESP 18; TEMP 36; O2SAT 89
[2019-09-17] MEDS: Ibuprofen 600 MG TAB PO (18:16)
[2019-09-17 19:36] VITALS: BP 130/75; PULSE 71; RESP 16; TEMP 36.3; O2SAT 94
[2019-09-17] MEDS: cefTRIAXone 2 GM/50 ML BAG IVPB (19:40)
[2019-09-17] MEDS: Nortriptyline 10 MG CAP PO (21:34)
[2019-09-18] MEDS: Heparin 5,000 UNITS/ML VIAL 5000 UNITS SC ×2 (00:10→08:05)
[2019-09-18 03:19] VITALS: BP 141/88; PULSE 90; RESP 16; TEMP 35.6; O2SAT 93
[2019-09-18 07:25] VITALS: BP 140/85; PULSE 93; RESP 16; TEMP 36; O2SAT 93
[2019-09-18] MEDS: Escitalopram 20 MG TAB PO (08:03)
[2019-09-18] MEDS: Amoxicillin 875/Clav. 125 TAB PO (08:04)
[2019-09-18] MEDS: Normal Saline Flush 10 ML SYR 20 ML IVP (08:04)
[2019-09-18] MEDS: Potassium Chloride 20 MEQ TABCR PO (08:04)
[2019-09-18] MEDS: Omeprazole 20 MG CAPCR PO (08:04)
[2019-09-18] MEDS: Gabapentin 300 MG CAP 600 MG PO (08:04)
[2019-09-18] MEDS: Insulin Aspart 300 UNITS/3 ML PEN SC (08:05)
--- NOTE | 2019-09-18 08:58 | PDOC.CMPRO ---
- If Service Date Differs Date of service: 09/18/19 Time of Service: 08:58 Care Management Progress Note S/O: A: Flor is a 69 year old female admitted with pneumonia and UTI and a history of dementia. P: Flor will be discharged home when medically ready; she may benefit from short term PT and OT in the home. Anticipate increased services and pairing of social work to support this family in making decisions moving forward. CM will continue to assess for discharge needs and coordinate services.
--- NOTE | 2019-09-18 09:43 | DSE_ITS ---
Date of service: 09/18/19 Time of Service: 09:43 DS: Diagnosis Discharge Diagnosis (1) Diabetes mellitus: Status: Chronic (2) Pneumonia: Status: Acute (3) SIRS (systemic inflammatory response syndrome): Status: Acute Discharge Plan Disposition Patient Disposition: HOME W/HOME HEALTH SERVICE Condition: Improving Discharge Details Chief Complaint: Abd Prob Clinical Impression: Acute UTI, Pneumonia Reason For Visit: UTI,PNEUMONIA Admit Date/Time: 09/12/19 22:18 Admit Provider: Ramon Hurst Attending Provider: Ramon Hurst Primary Care Provider: Elke Jansen V ED Provider: Richar Canales Hospital Course Hospital Course: This is a 69-year-old he with multiple medical problems including COPD, diabetes and hypertension who reported to the ED with 4 days of generalized weakness with abdominal pressure and dysuria. In the ED she had tachycardia with an elevated WBC but no fever and no tachypnea. Her blood pressure was slightly decreased early on but responded to IV hydration. She was found to have a possible UTI and possible left lower lobe pneumonia and admitted for treatment of both. She also needed IV electrolyte correction with apparent chronic CKD associated with her diabetes. She has mild dementia and the first was refusing to stay for treatment but eventually agreed to admission. CXR indicated L sided consolidation. Urine culture grew mixed winter. Rocephin and Azithromycin initiated. Her DM2 was managed with sliding scale correction doses of insulin; her home Tradjenta and glyburide were held. She only required supplemental O2 on one occasion while asleep. Her WBC count was initially elevated but returned to normal. Blood cultures grew staph epidermidid in one bottle. Urine grew gram positive winter in less than 10,000 colonies/ml. She did have one episode of confusion with delirium; possibly d/t fever and/or Levaquin. This, after changing antibiotic coverage to oral Levaquin d/t IV access issues. A midline catheter was placed and the Levaquin was stopped and Rocephin restarted. She had no more episodes of confusion with delirium. PT consulted; patient only worked with them on bed mobility and ambulating to and from the commode. However on the day of discharge she was more motivated to engage in more activity. She will complete a course of Augmentin (10 total doses). Home health ordered for nursing, PT/OT and Social Work. Home Meds and New Rx's Prescriptions: New amoxicillin-pot clavulanate 875-125 mg Tablet 1 tab PO BID Qty: 10 RF: 0 Continued furosemide [Lasix] 40 MG tablet 40 mg PO DAILY RF: 0 potassium chloride 10 MEQ capsule, extended release 20 meq PO DAILY RF: 0 gabapentin [Neurontin] 300 MG capsule 600 mg PO QID RF: 0 albuterol sulfate 8.5 GM HFA aerosol inhaler 2 puff Inhalation Q4H PRN RF: 0 cholecalciferol (vitamin D3) 1,000 UNIT capsule 1,000 unit PO TID RF: 0 nystatin (bulk) 1 EACH powder 1 ea miscellaneous BID RF: 0 SPACER RF: 0 TEDS DAILY RF: 0 fexofenadine [Ellie Allergy] 180 MG tablet 180 mg PO DAILY RF: 0 DIABETIC SHOES RF: 0 losartan 50 mg Tablet 50 mg PO DAILY RF: 0 cyclobenzaprine 10 mg Tablet 10 mg PO TID PRNRF: 0 nortriptyline 10 mg Capsule 10 mg PO QHS RF: 0 omeprazole 20 mg Capsule,Delayed Release(Dr/Ec) 20 mg PO DAILY RF: 0 ibuprofen 600 mg Tablet 600 mg PO TID PRNRF: 0 escitalopram oxalate 20 mg Tablet 30 mg PO DAILY RF: 0 Lantus Solostar U-100 Insulin 100 unit/mL (3 mL) Insulin Pen 10 unit SUBCUT QHS RF: 0 Tradjenta 5 mg Tablet 5 mg PO DAILY RF: 0 memantine [Namenda XR] 7 mg Capsule,Sprinkle,Er 24hr 7 mg PO DAILY RF: 0 lidocaine HCl [Lidocaine Plus] 4 % Cream 1 applic topical QID PRN PRNRF: 0 lorazepam 0.5 mg Tablet 0.5 mg PO BID PRNRF: 0 glipizide 10 mg tablet 10 mg PO BID RF: 0 No Action (DME) FreeStyle Test 1 EACH strip 1 ea Miscellaneous TID RF: 0 (DME) lancets [FreeStyle Lancets] 1 EACH misc 1 ea Miscellaneous TID RF: 0 (DME) Freestyle [employer] Test Strips 1 EACH strip 1 ea Miscellaneous TID RF: 0 Discharge Instructions Instructions: Bacterial Pneumonia (GEN) Stand Alone Forms: Nursing Discharge Form Referrals: Elke Jansen MD [Primary Care Provider] - 09/23/19 2:45 pm Activity:: Activity as Tolerated Equipment/Supplies:: No Equipment Needed Diet:: low carb, low sodium DS: Summary Status at Discharge Functional status at discharge: independent ambulation Overall status at discharge: patient is progressing back to baseline Mental Status: mental status grossly normal Speech and Movement: speech and movement normal Mood: congruent mood Affect: normal affect Exam Const General: cooperative Nutritional Appearance: obese Orientation: alert and oriented x3 Resp Effort & Inspection: normal respiratory effort Auscultation: clear to auscultation bilaterally and diminished lung sounds Cardio Jugular venous pressure: no JVD Rate: regular rate Rhythm: regular rhythm Heart Sounds: S1 normal and S2 normal GI Inspection: obesity Palpation: soft Percussion: normal to percussion Extrem General: normal to inspection and edema Laterality: bilateral (Trace) Psych Appearance: grossly normal Mental Status: mental status grossly normal Speech and Movement: speech and movement normal Mood: congruent mood Affect: normal affect Attitude: cooperative Thought Process: normal DS: Data Vitals/I&O Vitals and I&O: Vital Signs Temperature 36 C L 09/18/19 07:25 Temperature Source Tympanic 09/18/19 07:25 Pulse 93 H 09/18/19 07:25 Pulse Rhythm Regular 09/18/19 07:55 Pulse 107 H 09/13/19 14:51 Respiratory Rate 16 09/18/19 07:25 Respiratory Effort 09/18/19 07:55 Respiratory Depth Normal 09/18/19 07:55 Respiratory Pattern Normal 09/18/19 07:55 Blood Pressure 140/85 09/18/19 07:25 Blood Pressure Mean 80 09/13/19 14:51 Blood Pressure Position Supine 09/13/19 01:19 Pulse Oximetry 93 L 09/18/19 07:25 Oxygen Delivery Method Room Air 09/18/19 07:25 Oxygen Flow Rate 0 09/18/19 07:25 Pain Level 0 09/18/19 07:25 Comment 09/14/19 15:20 Intake & Output 09/17/19 09/17/19 09/18/19 11:59 23:59 11:59 Intake Total 220 / 770 550 / 770 120 / 120 Output Total 1600 / 4100 2150 / 4100 750 / 750 Balance -1380 / -3330 -1600 / -3330 -630 / -630 Weight 105.6 kg 104.6 kg Intake: IV 20 / 70 / 90 Oral 200 / 680 480 / 680 120 / 120 Output: Urine 1600 / 4100 2150 / 4100 750 / 750 Other: Urine Color [place] Yellow Yellow Urine Appearance Clear Clear Clear Urine Odor Normal Normal None Comment moderate incontinence in addition to voiding on commode Stool Size Copious Voiding Methods Bedside Commode Bedside Commode Bedside Commode Data Completed and Pending Labs on day of discharge: Preliminary micro results at discharge 09/14/19 12:45 Blood Culture - Preliminary Blood Staphylococcus Epidermidis 09/14/19 12:05 Blood Culture - Preliminary Blood NO GROWTH 72 HOURS [facility] Social History Smoking/Tobacco Use Status: Former Tobacco Use Alcohol Intake: never Drug use: Never Do you feel safe at home: Yes Do you feel safe in your relationship?: Yes Additional Social history: per EMS--meds at home are in a container for the month---sporatic empty slots-not in order---Med list includes Insulin which she states she does not take--niece states there is a new pen in her fridge.
--- NOTE | 2019-09-18 10:15 | PDOC.HHF2F_ITS ---
Home Health Certification Home Health Certification: 1. Encounter Date and Reason I certify that DAI VAUGHAN was seen by Davon Hinds MD on 09/18/19 and that I had a [id number] encounter with this patient that meets the physician face to face encounter requirements. 2. Clinical Findings Supporting Skilled Need and Homebound Status I certify that home health services are medically necessary, include either intermittent group home and/or physical/speech therapy, and that this patient is homebound in that absences from the home require considerable and taxing effort and are infrequent or of short duration, or are attributable to the need to receive medical care. [X] (a) Attached documentation from encounter provides clinical findings supporting skilled need and homebound status (including what assistance patient requires to leave the home). The encounter with the patient was in whole, or in part, for the following medical condition, which is the primary reason for home health care: UTI,PNEUMONIA Mcfp:Routine for monitoring respiratory status. + Pneumonia Physical Therapy: and Occupation Therapy. + generalized debility / deconditioned state. Speech Therapy: Homebound: Unsafe to leave home w/o assistance d/t weakness / debility. Social Work: Assist with concerns regarding children in the home with special needs. 3. Certification and Authentication I certify that I composed the above information based on my clinical judgement relating to this patient's medical condition and, if applicable, clinical findings communicated to me by the NPP or inpatient physician who performed the Home Health Referral. All further orders will be obtained through ___Elke Jansen (Community Based Physician - PCP)
[2019-09-18 11:21] VITALS: BP 131/84; PULSE 97; RESP 18; TEMP 36.5; O2SAT 94
--- NOTE | 2019-09-18 14:41 | PDOC.CMDIS ---
- If Service Date Differs Date of service: 09/18/19 Time of Service: 14:41 LACE Index Scoring Tool - Questions: Length of Stay (in days): 7 - 13 Acuity (Admit via E.D.?): Yes Comorbidities: Diabetes w/o Complication E.D. Visits: 2 - Answers: Total Score: 11 Risk of Readmission: High Risk Care Management Discharge Reason for Hospitalization: Systemic inflammatory response syndrome Discharge Plan: Flor will return home with new orders for RN, PT, OT, ELECTRICAL PROSPECTING OPERATOR. She will be driven home via private vehicle by family. She will follow up with her PCP and discharge plan of care. She is agreeable to returning home. Patient/Family Education Needs: Review discharge instructions regarding activity levels and medications, discussion of self care needs including ask me three. Services Needed at Discharge: Home Health Care Services ([facility] RN, PT, OT, ELECTRICAL PROSPECTING OPERATOR)
--- NOTE | 2019-09-18 15:42 | PT.INTREAT ---
Date of service: 09/18/19 Time of Service: 10:30 PT Notes Visit Reasons: UTI,PNEUMONIA Inpatient Physical Therapy Treatment Note [facility] Date: 09/18/2019 SUBJECTIVE: I'm going home today, and do not want to do anything with you.I'm tired, and dizzy. OBJECTIVE: [] BED MOBILITY/TRANSFERS Supine-sit: I Sit-supine:I Sit-stand: SBA Stand-sit: SBA Bed-Chair: SBA] Chair-bed: SBA GAIT Assistive Device: FWW Weight bearing: FWB Assist: SBA Distance: 100' Deviation:2 sitting rest breaks. STAIRS:negotiated 3, 4 steps and 2, 6 steps. up and down, with 2 handrails and CGA ASSESSMENT: not very motivated but was able to encourage her enough to get her through it. No c/o pain, or dizziness t/o session. She did get fatigue with ambulation to poor endurance. She is able to safely transfer, ambulate and negotiate stairs. PLAN: d/c home TREATMENT CODE/TIME: 25 min [id number], [id number].
--- NOTE | 2019-09-19 12:32 | PT.INDS ---
Date of service: 09/19/19 PT Notes Visit Reasons: UTI,PNEUMONIA Inpatient Physical Therapy Discharge Summary Date: 09/19/2019 Dates of service: 09/14/2019 through 09/18/2019 This is a clinical summary of care provided on the duration of dates listed above. No charge was made in the completion of this documentation. Referring Doctor: Davon Hinds PT Orders: PT CONSULT: Evaluate Precautions: Falls Patient Profile/Admitting Diagnosis: A 69-year-old female who was admitted recently with a UTI and pneumonia and SIRS. PMHX: Other problems include diabetes, chronic kidney disease, COPD, hypertension, obesity Social History/Home Situation: Lives in [place] on the second floor with exterior stairway with railing. She is retired, and has noticed a 18-year-old son, a 16 and 12-year-old child. She lost her this past February. She was able to take care of all of her household responsibilities including meals and other ADLs. She also drives. Current Functional Limitations: She is weak and requires mild assistance with her bed mobility activities and her walking with a walker is limited to 10 feet. Equipment Owned/DME: As a combo shower tub, and her daughter will occasionally assist her with showering. No grab bars or flexible shower hose. Uses a cane Subjective: NT. See most recent RECREATION ESTABLISHMENT MANAGER notes. Objective: General Observation: NT. See most recent RECREATION ESTABLISHMENT MANAGER notes. Mental Status: NT. See most recent RECREATION ESTABLISHMENT MANAGER notes. Pain: NT. See most recent RECREATION ESTABLISHMENT MANAGER notes. Vital Signs: NT. See most recent RECREATION ESTABLISHMENT MANAGER notes. ROM: Right Upper Extremity: Shoulder Flexion WFL. Shoulder abduction WFL. Elbow flexion WFL. Wrist flexion WFL. Functional opening and closing of hand WFL. Left Upper Extremity: Shoulder Flexion WFL. Shoulder abduction WFL. Elbow flexion WFL. Wrist flexion WFL. Functional opening and closing of hand WFL. Right Lower Extremity: Hip flexion WFL. Hip abduction WFL. Knee flexion WFL. Ankle dorsiflexion WFL. Ankle plantarflexion WFL. Left Lower Extremity: Hip flexion WFL. Hip abduction WFL. Knee flexion WFL. Ankle dorsiflexion WFL. Ankle plantarflexion WFL. Strength: Right Upper Extremity: Shoulder flexors 4/5. Shoulder abductors 4/5. Elbow flexors 4/5. Elbow extensors 4/5. Middle School Band Teacher strong. Left Upper Extremity: Shoulder flexors 4/5. Shoulder abductors 4/5. Elbow flexors 4/5. Elbow extensors 4/5. Middle School Band Teacher strong. Right Lower Extremity: Hip flexors 4/5. Hip abductors 4/5. Knee flexors 4/5. Knee extensors 4/5. Ankle dorsiflexors 4/5. Ankle plantarflexors 4/5. Left Lower Extremity: Hip flexors 4/5. Hip abductors 4/5. Knee flexors 4/5. Knee extensors 4/5. Ankle dorsiflexors 4/5. Ankle plantarflexors 4/5. Bed Mobility/Transfers: Sit to supine: I Supine to sit: I Sit to stand: SBA Stand to chair: SBA Chair to bed: SBA Gait: 100 feet with front wheel walker with full weightbearing and standby assist requiring 2 seated rests due to fatigue. Up-and-down three 4 inch steps and two 6 inch's while holding onto rails requiring contact-guard assist. Balance: Static Sitting: Good Dynamic Sitting: Good Static Standing: Good Dynamic Standing: Fair Assessment: Patient made slow mobility gains during this epsiode of care due to lack of motivation and pre-existing depression. She continued skilled services in the home setting to achieve highest functional mobility level. Goals: Goals X1 week 1. Supine-Sit independent MET 2. Sit-Supine independent MET 3. Sit-Stand independent NOT MET 4. Stand-Sit independent NOT MET 5. Bed-Chair independent NOT MET 6. Chair-Bed independent NOT MET 7. Gait independent ambulation with a wheeled walker for greater than 50 feet MET 8. Stairs ascend stairs with a railing with greater than 8 steps NOT MET 9. Independent with home exercise program NOT MET DISCHARGE RECOMMENDATIONS: Patient will benefit from fpc facility placement for continued skilled physical therapy services in order to progress mobility level, strength, and balance in preparation for a safe discharge to home. TREATMENT CODE/TIME: MT Thank you for the opportunity to participate in the care of this patient. Madina Kc PT, DPT, CLT [facility] [place], [place]
== END 2019-09-18 11:55 | disposition home health service (06) | DRG 190 ==
LOC: ER 22:25 → ICU 23:23 → MS 09-13 15:06
PROVIDERS: Family Medicine; Admitting Provider Family Medicine; Emergency Provider Physician Assistant; PCP Family Medicine; Visit Provider Family Medicine
DX: J44.0 Chronic obstructive pulmonary disease with (acute) lower respiratory infection (principal); J18.9 Pneumonia, unspecified organism; N39.0 Urinary tract infection, site not specified; E87.1 Hypo-osmolality and hyponatremia; F05 Delirium due to known physiological condition; K21.9 Gastro-esophageal reflux disease without esophagitis; Z79.4 Long term (current) use of insulin; N18.3 Chronic kidney disease, stage 3 (moderate); E11.22 Type 2 diabetes mellitus with diabetic chronic kidney disease; I12.9 Hypertensive chronic kidney disease with stage 1 through stage 4 chronic kidney disease, or unspecified chronic kidney disease; E87.6 Hypokalemia
CPT/HCPCS: 36410; 36415; 36416; 80048; 80053; 82962; 83690; 84145; 87040; 96361; 96365; 96367; 96375; 97162; 97530; 99223; 99232; 99239; 99291; U0003; 71045; 71046; 81003; 81015; 83036; 83605; 83735; 85025; 85610; 87086; 94640; 94667; J1644; J2060; J2405; J3370; J3480; J7620

== ENCOUNTER 2020-05-20 11:08 | Emergency (ER) | payer MEDICARE, MEDICAID, SELFPAY ==
[2020-05-20] VITALS (20 sets, daily range): BP systolic 119–142; BP diastolic 48–82; PULSE 71–102; RESP 8–24; TEMP 36.7; O2SAT 94–99
--- NOTE | 2020-05-20 11:17 | ED.GENADUL_ITS ---
Discharge Plan Disposition Patient Disposition: HOME Condition: Stable Discharge Details Clinical Impression: Vidal blood in stool Primary Care Provider: Elke Jansen V ED Provider: Marta Evans Home Meds and New Rx's Prescriptions: Continued furosemide [Lasix] 40 MG tablet 40 mg PO DAILY RF: 0 potassium chloride 10 MEQ capsule, extended release 20 meq PO DAILY RF: 0 (DME) FreeStyle Test 1 EACH strip 1 ea Miscellaneous TID RF: 0 gabapentin [Neurontin] 300 MG capsule 600 mg PO QID RF: 0 albuterol sulfate 8.5 GM HFA aerosol inhaler 2 puff Inhalation Q4H PRN RF: 0 cholecalciferol (vitamin D3) 1,000 UNIT capsule 1,000 unit PO TID RF: 0 nystatin (bulk) 1 EACH powder 1 ea miscellaneous BID RF: 0 (DME) lancets [FreeStyle Lancets] 1 EACH misc 1 ea Miscellaneous TID RF: 0 SPACER RF: 0 TEDS DAILY RF: 0 fexofenadine [Ellie Allergy] 180 MG tablet 180 mg PO DAILY RF: 0 (DME) Freestyle InsuLinx Test Strips 1 EACH strip 1 ea Miscellaneous TID RF: 0 DIABETIC SHOES RF: 0 losartan 50 mg Tablet 50 mg PO DAILY RF: 0 cyclobenzaprine 10 mg Tablet 10 mg PO TID PRNRF: 0 nortriptyline 10 mg Capsule 10 mg PO QHS RF: 0 omeprazole 20 mg Capsule,Delayed Release(Dr/Ec) 20 mg PO DAILY RF: 0 ibuprofen 600 mg Tablet 600 mg PO TID PRNRF: 0 escitalopram oxalate 20 mg Tablet 30 mg PO DAILY RF: 0 Lantus Solostar U-100 Insulin 100 unit/mL (3 mL) Insulin Pen 10 unit SUBCUT QHS RF: 0 Tradjenta 5 mg Tablet 5 mg PO DAILY RF: 0 memantine [Namenda XR] 7 mg Capsule,Sprinkle,Er 24hr 7 mg PO DAILY RF: 0 lidocaine HCl [Lidocaine Plus] 4 % Cream 1 applic topical QID PRN PRNRF: 0 lorazepam 0.5 mg Tablet 0.5 mg PO BID PRNRF: 0 glipizide 10 mg tablet 10 mg PO BID RF: 0 Discharge Instructions Instructions: Melena (ED) Additional Instructions: Drink plenty of fluids and get plenty of rest. Use stool softeners as needed and directed for constipation. Call the surgery office today to schedule a follow-up appointment for reevaluation in the next week and to schedule a colonoscopy. Return immediately to the emergency department if you develop any worsening or new concerning symptoms worsening rectal bleeding, worsening pain, dizziness or any other concerns. Referrals: Melanie Wright DO [OSTEOPATHIC DOCTOR] - Discharge Data Discharge Date/Time-TO BE ENTERED AT DEPARTURE: 05/20/20 13:29 Discharge Physician: Marta Evans Medical Decision Making 70-year-old female with a history of asthma, depression, diabetes, hypertension, hyperlipidemia, fibromyalgia, hysterectomy, cholecystectomy, presents for dark red rectal bleeding this morning. Heart rate minimally elevated in the high 90s. She is afebrile. She has been lower abdominal tenderness but no rigidity or guarding. Rectal exam noted scant amount of dried dark red blood around the anus with guaiac grossly positive for blood. No hemorrhoids noted. No rectal tenderness. She is not on any anticoagulation and does not take NSAIDs regularly. Differential diagnosis includes diverticulitis, colitis, gastroenteritis, mass. Will place an IV, bolus IV fluids, screening labs, urinalysis, CT abdomen and pelvis. Labs and imaging reviewed. Normal hemoglobin. Normal white blood cell count. Glucose 206. Bicarb 33.7. Normal anion gap. Urinalysis notes 0-2 WBCs and trace leukocyte esterase but rare bacteria, negative nitrate, culture sent. CT negative for acute findings. Patient reassessed and she denies any complaints. She has not had any further rectal bleeding here. Patient states she feels comfortable going home. Through shared decision-making, patient and I discussed that as patient has been hemodynamically stable, without return of bleeding and is not on any anticoagulation, she is appropriate for discharge home with plan to return immediately with any worsening symptoms. Case discussed with surgery on-call --will follow up with patient outpatient for reevaluation and scheduling for colonoscopy. Patient placed on care management and surgery follow-up list. Results and plan discussed with patient's daughter Sissy over the phone. She is agreeable with plan. Usual and customary return precautions given prior to discharge. Medical Records Medical records reviewed: Yes I reviewed the patient's medical records. Imaging Data Radiologic Study: Radiologist's impression: CT ABDOMEN PELVIS W CLINICAL HISTORY: lower abd pain, rectal bleeding. TECHNIQUE: Imaging Protocol: Axial computed tomography images with coronal and sagittal reformatted images were created and reviewed CONTRAST MATERIAL: Intravenous: Omnipaque 350 Contrast volume:100 ml Oral: / no COMPARISON: No exams were available for comparison FINDINGS: ABDOMEN: Lung Bases: Normal where visualized. Liver: Mild fatty infiltration. No measurable mass. Gallbladder and biliary tract: Status post cholecystectomy. No biliary dilatation. Pancreas: Normal density, no abnormal calcifications or inflammatory process. Spleen: Normal. Kidneys: Normal size, contour and axis. No radiodense stones or obstructive uropathy. No masses seen. Adrenal glands: No masses seen. Abdominal Aorta: Abdominal portion non-dilated. Mild tortuosity and atherosclerotic changes. PELVIS: Bladder: Symmetric distention, no gross wall thickening. Bowel: Normal appendix. No obstruction or bowel wall thickening. Rectum unremarkable. Mild quantity of stool is seen. Peritoneal cavity: No ascites, collection or mesenteric inflammatory response. Bones: Degenerative disc changes and facet degenerative changes in the lower thoracic and lumbar spine. Reproductive organs: Status post hysterectomy. Lymph nodes: Unremarkable. Impression: No acute abnormality. Lab Data Lab results reviewed: Yes I reviewed the patient's lab results. Labs: 05/20/20 12:00 Urine - Reflex from Ua Urine Culture - Pending Laboratory Tests Range/Units 05/20/20 05/20/20 05/20/20 11:30 11:30 11:30 WBC (4.4-10.8) 10^3/uL 9.01 RBC (3.93-5.22) 10^6/uL 4.45 Hgb (11.2-15.7) g/dL 13.3 Hct (36.0-46.0) % 41.0 MCV (80-95) fL 92.1 MCH (27.0-33.0) pg 29.9 MCHC (32.0-36.0) % 32.4 RDW (11.7-14.6) % 13.0 Plt Count (130-400) 10^3/uL 271 MPV (8.0-11.0) fL 9.1 Immature Gran % 0.2 Neutrophils % 71.1 Lymphocytes % 22.4 Monocytes % 5.2 Eosinophils % 0.7 Basophils % 0.4 Nucleated RBC % % 0 Absolute Neutrophils (1.2-6.7) 10^3/uL 6.40 Absolute Lymphocytes (1.2-3.4) 10^3/uL 2.02 Absolute Monocytes (0.1-0.8) 10^3/uL 0.47 Absolute Eosinophils (0.0-0.7) 10^3/uL 0.06 Absolute Basophils (0.0-0.2) 10^3/uL 0.04 PT (9.3-11.0) sec 9.8 INR (0.9-1.1) 1.0 APTT (21.0-27.5) sec 23.4 Sodium (136-145) mmol/L 144 Potassium (3.5-5.1) mmol/L 3.5 Chloride (98-107) mmol/L 104 Carbon Dioxide (21.0-32.0) mmol/L 33.7 H Anion Gap (3-11) mmol/L 6.3 BUN (7-18) mg/dL 21 H Creatinine (0.55-1.02) mg/dL 1.3 H Estimated GFR/1.73 m2 (mL/min/1.73m2) 40.38 Glucose (74-106) mg/dL 206 H Calcium (8.5-10.1) mg/dL 8.9 Total Bilirubin (0.2-1.0) mg/dL 0.4 AST (15-37) U/L 16 ALT (14-59) U/L 24 Alkaline Phosphatase (46-116) U/L 118 H Total Protein (6.4-8.2) g/dL 6.7 Albumin (3.4-5.0) g/dL 3.3 L Urine Color (Yellow) Urine Clarity (Clear) Urine pH (5-8) Ur Specific Milnor (1.005-1.025) Urine Protein (Negative) mg/dL Urine Ketones (Negative) mg/dL Urine Blood (Negative) Urine Nitrite (Negative) Urine Bilirubin (Negative) Urine Urobilinogen (Up TO 0.2) EU/dL Ur Leukocyte Esterase (Negative) Urine RBC (0-2) HPF Urine WBC (0-5) HPF Ur Epithelial Cells (Negative) HPF Urine Crystals (Negative) HPF Urine Bacteria (Negative) HPF Urine Casts (Negative) LPF Urine Mucus (Negative) Ur Culture Indicated? Urine Glucose (Negative) mg/dL Patient ABO/Rh Antibody Screen Range/Units 05/20/20 05/20/20 11:30 12:00 WBC (4.4-10.8) 10^3/uL RBC (3.93-5.22) 10^6/uL Hgb (11.2-15.7) g/dL Hct (36.0-46.0) % MCV (80-95) fL MCH (27.0-33.0) pg MCHC (32.0-36.0) % RDW (11.7-14.6) % Plt Count (130-400) 10^3/uL MPV (8.0-11.0) fL Immature Gran % Neutrophils % Lymphocytes % Monocytes % Eosinophils % Basophils % Nucleated RBC % % Absolute Neutrophils (1.2-6.7) 10^3/uL Absolute Lymphocytes (1.2-3.4) 10^3/uL Absolute Monocytes (0.1-0.8) 10^3/uL Absolute Eosinophils (0.0-0.7) 10^3/uL Absolute Basophils (0.0-0.2) 10^3/uL PT (9.3-11.0) sec INR (0.9-1.1) APTT (21.0-27.5) sec Sodium (136-145) mmol/L Potassium (3.5-5.1) mmol/L Chloride (98-107) mmol/L Carbon Dioxide (21.0-32.0) mmol/L Anion Gap (3-11) mmol/L BUN (7-18) mg/dL Creatinine (0.55-1.02) mg/dL Estimated GFR/1.73 m2 (mL/min/1.73m2) Glucose (74-106) mg/dL Calcium (8.5-10.1) mg/dL Total Bilirubin (0.2-1.0) mg/dL AST (15-37) U/L ALT (14-59) U/L Alkaline Phosphatase (46-116) U/L Total Protein (6.4-8.2) g/dL Albumin (3.4-5.0) g/dL Urine Color (Yellow) Yellow Urine Clarity (Clear) Clear Urine pH (5-8) 6.5 Ur Specific Milnor (1.005-1.025) 1.025 Urine Protein (Negative) mg/dL 30 H Urine Ketones (Negative) mg/dL Negative Urine Blood (Negative) Negative Urine Nitrite (Negative) Negative Urine Bilirubin (Negative) Negative Urine Urobilinogen (Up TO 0.2) EU/dL 0.2 Ur Leukocyte Esterase (Negative) Trace H Urine RBC (0-2) HPF Negative Urine WBC (0-5) HPF 0-2 Ur Epithelial Cells (Negative) HPF Rare Urine Crystals (Negative) HPF Negative Urine Bacteria (Negative) HPF Rare Urine Casts (Negative) LPF Negative Urine Mucus (Negative) Negative Ur Culture Indicated? Yes Urine Glucose (Negative) mg/dL Negative Patient ABO/Rh O Positive Antibody Screen Negative HPI General Mode of arrival: ambulatory . Date/Time Provider Initiated Documentation: 05/20/20 11:15 . Limitations to Documentation: no limitations . Information obtained by: patient . HPI Narrative: Patient is a 70-year-old female with a history of asthma, depression, diabetes, hypertension, hyperlipidemia, cholecystectomy, hysterectomy presents for rectal bleeding morning. Patient states she was wiping after a bowel movement and noted dark red blood on the toilet paper and in the toilet. She states blood mixed with it was brown and formed. She also admitted to lower abdominal pain when asked but did not initially endorse any lower abdominal pain. She states she has been feeling fine yesterday. She denies any fever, chest pain, shortness of breath, nausea, vomiting, diarrhea, urinary symptoms, recent travel, recent sick contact or history of anticoagulation. Related Data Home Medications Medication Instructions Recorded Confirmed FreeStyle Test strip 11/06/13 06/06/18 Spacer 11/06/13 06/06/18 Teds DAILY 11/06/13 06/06/18 albuterol sulfate 2 puff INHALATION Q4H PRN inhaler 11/06/13 05/20/20 cholecalciferol (vitamin D3) 1,000 unit PO TID 11/06/13 05/20/20 furosemide [Lasix] 40 mg PO DAILY tab-cap 11/06/13 05/20/20 gabapentin [Neurontin] 600 mg PO QID tab-cap 11/06/13 05/20/20 lancets [FreeStyle Lancets] ea 11/06/13 06/06/18 nystatin (bulk) 1 ea MISCELLANEOUS BID 11/06/13 05/20/20 potassium chloride 20 meq PO DAILY tab-cap 11/06/13 05/20/20 Diabetic Shoes 06/09/14 06/06/18 Freestyle InsuLinx Test Strips strip 06/09/14 06/06/18 fexofenadine [Ellie Allergy] 180 mg PO DAILY tab-cap 06/09/14 05/20/20 Lantus Solostar U-100 Insulin 10 unit SUBCUT QHS 12/29/18 05/20/20 Tradjenta 5 mg PO DAILY 12/29/18 05/20/20 cyclobenzaprine 10 mg PO TID PRN 12/29/18 05/20/20 escitalopram oxalate 30 mg PO DAILY 12/29/18 05/20/20 ibuprofen 600 mg PO TID PRN 12/29/18 05/20/20 lidocaine HCl [Lidocaine Plus] 1 applic TOPICAL QID PRN PRN 12/29/18 05/20/20 lorazepam 0.5 mg PO BID PRN 12/29/18 05/20/20 losartan 50 mg PO DAILY 12/29/18 05/20/20 memantine [Namenda XR] 7 mg PO DAILY 12/29/18 05/20/20 nortriptyline 10 mg PO QHS 12/29/18 05/20/20 omeprazole 20 mg PO DAILY 12/29/18 05/20/20 glipizide 10 mg PO BID 09/15/19 05/20/20 Allergies Allergy/AdvReac Type Severity Reaction Status Date / Time allopurinol Allergy Severe Rash and Unverified 05/20/20 12:03 SOB aspirin Allergy Severe Anaphylaxsi Unverified 05/20/20 12:03 s colchicine AdvReac Intermediate Elevated Unverified 05/20/20 12:03 creatinine metformin AdvReac Intermediate Elevated Unverified 05/20/20 12:03 creatinine General DEL: 3 Review of Systems All systems reviewed & are unremarkable except as noted in HPI and below Constitutional Constitutional: Reports as per HPI, Denies chills and Denies fever(s) Eyes Eyes: Denies blurry vision ENT Ears, Nose, Mouth, and Throat: Denies dizziness, Denies sore throat and Denies throat swelling Cardiovascular Cardiovascular: Denies chest pain and Denies dyspnea Respiratory Respiratory: Denies cough and Denies dyspnea Gastrointestinal Gastrointestinal: Reports abdominal pain, Denies diarrhea, Denies vomiting and Reports other (dark red blood with wiping on toilet paper and in toilet) Genitourinary Genitourinary: Denies hematuria and Denies dysuria Musculoskeletal Musculoskeletal: Denies back pain and Denies numbness Integumentary/Breasts Skin/Breast: Denies lesions and Denies rash Neurologic Neurologic: Denies dizziness, Denies localized weakness and Denies numbness Allergic/Immunologic Allergic/Immunologic: Denies throat swelling PFSH Medical History (Updated 05/20/20 @ 13:14 by Marta Evans DO) Asthma Depression Diabetes mellitus Fibromyalgia HTN (hypertension) Hx of hyperlipidemia Surgical History (Updated 05/20/20 @ 12:12 by Marta Evans DO) Ganglion cyst H/O section History of back surgery History of hysterectomy Hx of cholecystectomy Social History Smoking/Tobacco Use Status: Current every day Tobacco Type: cigarettes Smoking risk assessment performed?: Yes Alcohol Intake: never Drug use: Never Substance use type: does not use Do you feel safe at home: Yes Do you feel safe in your relationship?: Yes Additional Social history: per EMS--meds at home are in a container for the month---sporatic empty slots-not in order---Med list includes Insulin which she states she does not take--niece states there is a new pen in her fridge. Exam Const General: cooperative and no acute distress HENMT Head: normal to inspection Face and sinus: normal facial exam Eyes General: appearance normal, both eyes and all related structures EOM: EOM intact bilaterally Neck Neck: normal visual inspection and No submandibular swelling Lymphatic: no lymphadenopathy noted Chest Chest: normal inspection of the chest and no tenderness Resp Effort & Inspection: normal respiratory effort and able to speak in complete sentences Auscultation: clear to auscultation bilaterally Cardio Rate: regular rate Rhythm: regular rhythm GI Inspection: normal to inspection Palpation: soft, not firm, not rigid and tender in the LLQ, in the RLQ and suprapubicly Auscultation: hypoactive bowel sounds Other: Scant amount of dried red dark blood around anus. No external hemorrhoids noted. Guaiac noted gross dark red blood and positive. No stool noted on rectal exam. No masses noted. Skin General skin exam: no rashes or lesions noted Neuro General: patient alert, patient awake and patient oriented x3 Cognition: normal cognition Speech: speech normal Motor: muscle tone normal throughout Sensory Exam: no sensory deficits noted Extrem General: normal to inspection, full ROM, capillary refill normal, no calf tenderness bilaterally and no edema Psych Appearance: grossly normal Mental Status: mental status grossly normal Speech and Movement: speech and movement normal Affect: normal affect
--- NOTE | 2020-05-20 11:21 | NUR.NOTE ---
Nursing Note: Daughter Sissy [phone]
[2020-05-20 11:47] LABS: Abs Immature Grans 0.02 10^3/uL (0.0-0.06); Absolute Basophil Count 0.04 10^3/uL (0.0-0.2); Absolute Eosinophil Count 0.06 10^3/uL (0.0-0.7); Absolute Lymphocyte Count 2.02 10^3/uL (1.2-3.4); Absolute Monocyte Count 0.47 10^3/uL (0.1-0.8); Basophils % 0.4; Eosinophils % 0.7; HGB 13.3 g/dL (11.2-15.7); Immature Grans % 0.2; Lymphocytes % 22.4; MCH 29.9 pg (27.0-33.0); MCHC 32.4 % (32.0-36.0); MCV 92.1 fL (80-95); MPV 9.1 fL (8.0-11.0); Monocytes % 5.2; Neutrophils % 71.1; Nucleated RBC 0 %; Platelet Count 271 10^3/uL (130-400); RBC 4.45 10^6/uL (3.93-5.22); RDW-SD 43.9 fL; WBC 9.01 10^3/uL (4.4-10.8)
[2020-05-20 12:00] LABS: ALT 24 U/L (14-59); AST 16 U/L (15-37); Albumin 3.3 g/dL (3.4-5.0); Alkaline Phosphatase 118 U/L (46-116); Anion Gap 6.3 mmol/L (3-11); BUN 21 mg/dL (7-18); Bilirubin, Total 0.4 mg/dL (0.2-1.0); CO2 33.7 mmol/L (21.0-32.0); CREATININE 1.3 mg/dL (0.55-1.02); Calcium 8.9 mg/dL (8.5-10.1); Chloride 104 mmol/L (98-107); Estimated GFR 40.38 (mL/min/1.73m2); Glucose 206 mg/dL (74-106); Potassium 3.5 mmol/L (3.5-5.1); Sodium 144 mmol/L (136-145); Total Protein 6.7 g/dL (6.4-8.2)
[2020-05-20 12:02] LABS: PTT Activated 23.4 sec (21.0-27.5); Prothrombin Time 9.8 sec (9.3-11.0)
[2020-05-20 12:05] LABS: Bilirubin Negative (Negative); Blood Negative (Negative); Clarity Clear (Clear); Glucose Negative (Negative); Ketones Negative (Negative); Leukocyte Esterase Trace (Negative); Nitrite Negative (Negative); Specific Gravity 1.025 (1.005-1.025); Urobilinogen 0.2 EU/dL (Up TO 0.2); pH 6.5 (5-8)
[2020-05-20] MEDS: Normal Saline 250 ML IV (12:05)
[2020-05-20 12:09] LABS: Bacteria Rare HPF (Negative); C & S Indicated? Yes; Casts Negative LPF (Negative); Crystals Negative HPF (Negative); Epithelial Cells Rare HPF (Negative); Mucus Negative (Negative); RBC Negative HPF (0-2); WBC 0-2 HPF (0-5)
[2020-05-20] MEDS: Omnipaque 350 MG/ML 100 ML BTL IJ (12:11)
[2020-05-20] MEDS: Normal Saline - Diluent 50 ML VIAL IV (12:12)
[2020-05-20] MEDS: Normal Saline Flush 10 ML SYR IVP (12:13)
--- NOTE | 2020-05-20 12:23 | DI.CT_ITS ---
EXAM: CT ABDOMEN PELVIS W CLINICAL HISTORY: lower abd pain, rectal bleeding. TECHNIQUE: Imaging Protocol: Axial computed tomography images with coronal and sagittal reformatted images were created and reviewed CONTRAST MATERIAL: Intravenous: Omnipaque 350 Contrast volume:100 ml Oral: / no COMPARISON: No exams were available for comparison FINDINGS: ABDOMEN: Lung Bases: Normal where visualized. Liver: Mild fatty infiltration. No measurable mass. Gallbladder and biliary tract: Status post cholecystectomy. No biliary dilatation. Pancreas: Normal density, no abnormal calcifications or inflammatory process. Spleen: Normal. Kidneys: Normal size, contour and axis. No radiodense stones or obstructive uropathy. No masses seen. Adrenal glands: No masses seen. Abdominal Aorta: Abdominal portion non-dilated. Mild tortuosity and atherosclerotic changes. PELVIS: Bladder: Symmetric distention, no gross wall thickening. Bowel: Normal appendix. No obstruction or bowel wall thickening. Rectum unremarkable. Mild quantit y of stool is seen. Peritoneal cavity: No ascites, collection or mesenteric inflammatory response. Bones: Degenerative disc changes and facet degenerative changes in the lower thoracic and lumbar spin e. Reproductive organs: Status post hysterectomy. Lymph nodes: Unremarkable. Impression: No acute abnormality. RADIATION DOSE DELIVERED: 1,356.38mGy.cm Total DLP DATA REPOSITORY: All CT scans at this facility are submitted to the National Radiology Data Registry (NRDR) Dose Index Registry (DIR) with the [employer] ([employer]). RADIATION OPTIMIZATION: All CT scans at this facility use at least one of these dose optimization te chniques: automated exposure control; mA and/or kV adjustment per patient size (includes targeted exa ms where dose is matched to clinical indication); or iterative reconstruction.
== END 2020-05-20 13:29 | disposition home or self-care (01) ==
PROVIDERS: Emergency Provider Physician Assistant; PCP Family Medicine
DX: K92.1 Melena (principal); R10.30 Lower abdominal pain, unspecified
CPT/HCPCS: 36415; 80053; 86850; 86900; 86901; 96360; 99285; 74177; 81003; 81015; 85025; 85610; 85730; 87086; J3490

== ENCOUNTER 2020-11-11 14:11 | Outpatient (REF) | payer MEDICARE, MEDICAID, SELFPAY ==
[2020-11-13 10:50] LABS: COVID-19 RT-PCR UVMMC Result Negative (Negative)
== END 2020-11-11 14:12 | disposition home or self-care (01) ==
LOC: NCHCN 14:11
PROVIDERS: PCP Family Medicine; Visit Provider Nurse Practitioner Family
DX: Z20.822 Contact with and (suspected) exposure to COVID-19 (principal); R53.83 Other fatigue
CPT/HCPCS: U0003

== ENCOUNTER 2021-07-04 16:43 | Emergency (ER) | payer MEDICARE, MEDICAID, SELFPAY ==
[2021-07-04 16:46] VITALS: BP 119/70; PULSE 104; RESP 18; TEMP 36.8; O2SAT 99
--- NOTE | 2021-07-04 17:45 | RT.EKG_ITS ---
APPROVED REPORT Exam: Resting ECG Reason for Exam: arhythmia on monitor Patient Location: E HR:87 bpm ECG Measurements Heart Rate 87 AXIS CO 147 P 23 QRSd 90 QRS -11 QT 388 T 20 QTc 468 Conclusion Sinus rhythm...normal P axis, V-rate 60- 99 Low voltage, precordial leads...precordial leads <1.0mV
[2021-07-04 17:53] LABS: ALT 18 U/L (14-59); AST 13 U/L (15-37); Alkaline Phosphatase 88 U/L (46-116); Anion Gap 8.9 mmol/L (3-11); BUN 28 mg/dL (7-18); Bilirubin, Total 0.5 mg/dL (0.2-1.0); CO2 27.1 mmol/L (21.0-32.0); CREATININE 1.4 mg/dL (0.55-1.02); Calcium 8.8 mg/dL (8.5-10.1); Chloride 108 mmol/L (98-107); Estimated GFR 36.96 (mL/min/1.73m2); Glucose 94 mg/dL (74-106); Potassium 3.9 mmol/L (3.5-5.1); Sodium 144 mmol/L (136-145); Total Protein 6.5 g/dL (6.4-8.2)
--- NOTE | 2021-07-04 18:16 | ED.GENADUL_ITS ---
Discharge Plan Disposition Patient Disposition: HOME Condition: Stable Discharge Details Clinical Impression: Bright red rectal bleeding Primary Care Provider: Elke Jansen V ED Provider: Lee Rodriguez Home Meds and New Rx's Prescriptions: Continued furosemide [Lasix] 40 MG tablet 40 mg PO DAILY potassium chloride 10 MEQ capsule, extended release 20 meq PO DAILY (DME) FreeStyle Test 1 EACH strip 1 ea Miscellaneous TID gabapentin [Neurontin] 300 MG capsule 600 mg PO QID albuterol sulfate 8.5 GM HFA aerosol inhaler 2 puff Inhalation Q4H PRN cholecalciferol (vitamin D3) 1,000 UNIT capsule 1,000 unit PO TID nystatin (bulk) 1 EACH powder 1 ea miscellaneous BID Rx Instructions: APPLY TWO TIMES A DAY TO RASH UNDER BREAST AND IN GROIN (DME) lancets [FreeStyle Lancets] 1 EACH misc 1 ea Miscellaneous TID SPACER TEDS DAILY (DME) Freestyle [employer] Test Strips 1 EACH strip 1 ea Miscellaneous TID DIABETIC SHOES losartan 50 mg Tablet 50 mg PO DAILY cyclobenzaprine 10 mg Tablet 10 mg PO TID PRN nortriptyline 10 mg Capsule 10 mg PO QHS omeprazole 20 mg Capsule,Delayed Release(Dr/Ec) 20 mg PO DAILY ibuprofen 600 mg Tablet 600 mg PO TID PRN escitalopram oxalate 20 mg Tablet 30 mg PO DAILY Lantus Solostar U-100 Insulin 100 unit/mL (3 mL) Insulin Pen 10 unit SUBCUT QHS Tradjenta 5 mg Tablet 5 mg PO DAILY memantine [Namenda XR] 7 mg Capsule,Sprinkle,Er 24hr 7 mg PO DAILY lidocaine HCl [Lidocaine Plus] 4 % Cream 1 applic topical QID PRN PRN lorazepam 0.5 mg Tablet 0.5 mg PO BID PRN glipizide 10 mg tablet 10 mg PO BID Discontinued fexofenadine [Ellie Allergy] 180 MG tablet 180 mg PO DAILY Discharge Instructions Instructions: Rectal Bleeding (ED) Additional Instructions: Please follow-up with general surgery for colonoscopy. Please contact your primary care physician to arrange follow-up. Return to the ER immediately for any worsening or new concerning symptoms. Referrals: [facility] [Provider Group] Elke Jansen MD [Primary Care Provider] - Medical Decision Making 70-year-old female with a history of asthma, depression, diabetes, hypertension, hyperlipidemia, cholecystectomy, presents with rectal bleeding this afternoon. Patient denies blood in stool and no melena but did have some blood when wiping. Patient is hemodynamically stable. Labs reviewed and no anemia. Rectal exam was performed and no active bleeding. Patient has had similar presentation in May 2020 and has not had an opportunity to follow-up as recommended for colonoscopy. I will refer for colonoscopy. -- I reviewed the patient's mechanical energy engineer rhythm strip: Ectopic beats noted, heart rate 80s An EKG was obtained given this mechanical energy engineer finding and was reviewed and interpreted by me: Sinus rhythm 87 bpm, normal axis, low voltage precordial leads noted, no arrhythmia. Please see report. Lab Data Lab results reviewed: Yes I reviewed the patient's lab results. Labs: Laboratory Tests Range/Units 07/04/21 07/04/21 07/04/21 17:30 17:30 17:30 WBC Cancelled RBC Cancelled Hgb Cancelled Hct Cancelled MCV Cancelled MCH Cancelled MCHC Cancelled RDW Cancelled Plt Count Cancelled MPV Cancelled Immature Gran % Cancelled Neutrophils % Cancelled Band Neutrophils % Cancelled Lymphocytes % Cancelled Atypical Lymphs % Cancelled Monocytes % Cancelled Eosinophils % Cancelled Basophils % Cancelled Metamyelocytes % Cancelled Myelocytes % Cancelled Promyelocytes % Cancelled Other Cells % Cancelled Nucleated RBC % Cancelled Absolute Neutrophils Cancelled Absolute Lymphocytes Cancelled Absolute Monocytes Cancelled Absolute Eosinophils Cancelled Absolute Basophils Cancelled RBC Morphology Cancelled Polychromasia Cancelled Hypochromasia Cancelled Poikilocytosis Cancelled Basophilic Stippling Cancelled Anisocytosis Cancelled Microcytosis Cancelled Macrocytosis Cancelled Spherocytes Cancelled Tear Drop Cells Cancelled Ovalocytes Cancelled Stomatocytes Cancelled [place] Bodies Cancelled [place] Cells/Echinocytes Cancelled Acanthocytes (Spur) Cancelled Schistocytes Cancelled Sodium (136-145) mmol/L 144 Potassium (3.5-5.1) mmol/L 3.9 Chloride (98-107) mmol/L 108 H Carbon Dioxide (21.0-32.0) mmol/L 27.1 Anion Gap (3-11) mmol/L 8.9 BUN (7-18) mg/dL 28 H Creatinine (0.55-1.02) mg/dL 1.4 H Estimated GFR/1.73 m2 (mL/min/1.73m2) 36.96 Glucose (74-106) mg/dL 94 Calcium (8.5-10.1) mg/dL 8.8 Total Bilirubin (0.2-1.0) mg/dL 0.5 AST (15-37) U/L 13 L ALT (14-59) U/L 18 Alkaline Phosphatase (46-116) U/L 88 Total Protein (6.4-8.2) g/dL 6.5 Albumin (3.4-5.0) g/dL 3.0 L Patient ABO/Rh O Positive Antibody Screen NEGATIVE Range/Units 07/04/21 19:03 WBC 8.89 RBC 3.96 Hgb 12.0 Hct 36.8 MCV 93 MCH 30.3 MCHC 32.6 RDW 13.4 Plt Count 233 MPV 9.4 Immature Gran % 0.2 Neutrophils % 64.4 Band Neutrophils % Lymphocytes % 26.4 Atypical Lymphs % Monocytes % 7.8 Eosinophils % 0.9 Basophils % 0.3 Metamyelocytes % Myelocytes % Promyelocytes % Other Cells % Nucleated RBC % 0.0 Absolute Neutrophils 5.72 Absolute Lymphocytes 2.35 Absolute Monocytes 0.69 Absolute Eosinophils 0.08 Absolute Basophils 0.03 RBC Morphology Polychromasia Hypochromasia Poikilocytosis Basophilic Stippling Anisocytosis Microcytosis Macrocytosis Spherocytes Tear Drop Cells Ovalocytes Stomatocytes [place] Bodies [place] Cells/Echinocytes Acanthocytes (Spur) Schistocytes Sodium (136-145) mmol/L Potassium (3.5-5.1) mmol/L Chloride (98-107) mmol/L Carbon Dioxide (21.0-32.0) mmol/L Anion Gap (3-11) mmol/L BUN (7-18) mg/dL Creatinine (0.55-1.02) mg/dL Estimated GFR/1.73 m2 (mL/min/1.73m2) Glucose (74-106) mg/dL Calcium (8.5-10.1) mg/dL Total Bilirubin (0.2-1.0) mg/dL AST (15-37) U/L ALT (14-59) U/L Alkaline Phosphatase (46-116) U/L Total Protein (6.4-8.2) g/dL Albumin (3.4-5.0) g/dL Patient ABO/Rh Antibody Screen HPI General Mode of arrival: ambulatory . Date/Time Provider Initiated Documentation: 07/04/21 16:45 . Limitations to Documentation: no limitations . Information obtained by: patient . HPI Narrative: 71-year-old female presents with chief complaint of bright red blood per rectum. Patient notes around 3 PM today she was wiping her rectum and noticed 140. She had no blood in her stool. No melena. No associated abdominal pain. Patient notes feeling well. No blood thinners. Patient had a similar presentation in 06/02 and was advised to follow-up for colonoscopy which unfortunately has not had. Related Data Home Medications Medication Instructions Recorded Confirmed Spacer 11/06/13 06/06/18 Teds DAILY 11/06/13 06/06/18 albuterol sulfate 90 mcg/actuation 2 puff inhalation Q4H PRN 11/06/13 07/04/21 aerosol inhaler blood sugar diagnostic (FreeStyle 11/06/13 06/06/18 Test strips) cholecalciferol (vitamin D3) 25 1,000 unit PO TID 11/06/13 07/04/21 mcg (1,000 unit) capsule furosemide 40 mg tablet (Lasix) 40 mg PO DAILY 11/06/13 07/04/21 gabapentin 300 mg capsule 600 mg PO QID 11/06/13 07/04/21 (Neurontin) lancets 28 gauge (FreeStyle 11/06/13 06/06/18 Lancets) nystatin (bulk) 150 million unit 1 ea miscellaneous BID 11/06/13 07/04/21 powder potassium chloride 10 mEq 20 meq PO DAILY 11/06/13 07/04/21 capsule,extended release Diabetic Shoes 06/09/14 06/06/18 blood sugar diagnostic (Freestyle 06/09/14 06/06/18 [employer] Test Strips) cyclobenzaprine 10 mg tablet 10 mg PO TID PRN 12/29/18 07/04/21 escitalopram oxalate 20 mg tablet 30 mg PO DAILY 12/29/18 07/04/21 ibuprofen 600 mg tablet 600 mg PO TID PRN 12/29/18 07/04/21 insulin glargine 100 unit/mL (3 10 unit subcut QHS 12/29/18 07/04/21 mL) subcutaneous pen (Lantus Solostar U-100 Insulin) lidocaine HCl 4 % topical cream 1 applic topical QID PRN PRN 12/29/18 05/20/20 (Lidocaine Plus) linagliptin 5 mg tablet (Tradjenta) 5 mg PO DAILY 12/29/18 07/04/21 lorazepam 0.5 mg tablet 0.5 mg PO BID PRN 12/29/18 07/04/21 losartan 50 mg tablet 50 mg PO DAILY 12/29/18 07/04/21 memantine 7 mg capsule 7 mg PO DAILY 12/29/18 07/04/21 sprinkle,extended release 24hr (Namenda XR) nortriptyline 10 mg capsule 10 mg PO QHS 12/29/18 07/04/21 omeprazole 20 mg capsule,delayed 20 mg PO DAILY 12/29/18 07/04/21 release glipizide 10 mg tablet 10 mg PO BID 09/15/19 07/04/21 Allergies Allergy/AdvReac Type Severity Reaction Status Date / Time allopurinol Allergy Severe Rash and Unverified 07/04/21 16:57 SOB aspirin Allergy Severe Anaphylaxsi Unverified 07/04/21 16:57 s colchicine AdvReac Intermediate Elevated Unverified 07/04/21 16:57 creatinine metformin AdvReac Intermediate Elevated Unverified 07/04/21 16:57 creatinine General Stated Complaint: GI Bleed DEL: 3 Review of Systems All systems reviewed & are unremarkable except as noted in HPI and below Constitutional Constitutional: Denies fever(s) Gastrointestinal Gastrointestinal: Reports as per HPI, Denies abdominal pain and Denies melena PFSH All Active Problems (Updated 07/04/21 @ 18:28 by Lee Rodriguez MD) Vidal blood in stool (Acute) Bright red rectal bleeding (Acute) Delirium (Acute) SIRS (systemic inflammatory response syndrome) (Acute) Electrolyte abnormality (Acute) Acute UTI (Acute) Pneumonia (Acute) Trochanteric bursitis of right hip (Acute 04/20/15) Trochanteric bursitis of left hip (Acute 04/20/15) Medical History (Updated 07/04/21 @ 18:28 by Lee Rodriguez MD) Asthma Depression Diabetes mellitus Fibromyalgia HTN (hypertension) Hx of hyperlipidemia Surgical History (Updated 05/20/20 @ 12:12 by Marta Evans DO) Ganglion cyst H/O section History of back surgery History of hysterectomy Hx of cholecystectomy Social History Smoking/Tobacco Use Status: Current every day Tobacco Type: cigarettes Smoking risk assessment performed?: Yes Alcohol Intake: never Drug use: Never Substance use type: does not use Do you feel safe at home: Yes Do you feel safe in your relationship?: Yes Exam Const General: cooperative and no acute distress HENMT Mouth: moist mucous membranes Resp Auscultation: clear to auscultation bilaterally, no rales, no rhonchi and no wh eezes Cardio Rate: regular rate and not tachycardic Rhythm: regular rhythm GI Palpation: soft, not firm, no guarding, no masses, not rigid and nontender Rectal Exam - female: heme positive stool, No hemorrhoids and No laceration Other: Rectal exam was performed with female nurse Liss villarreal Skin General skin exam: no rashes or lesions noted Neuro General: patient alert, patient awake and tone normal Extrem General: no edema Psych Appearance: grossly normal Mental Status: mental status grossly normal Speech and Movement: speech and movement normal Course Vital Signs Vital signs: Vital Signs Temperature 36.8 C 07/04/21 16:46 Pulse 104 H 07/04/21 16:46 Respiratory Rate 18 07/04/21 16:46 Blood Pressure 119/70 07/04/21 16:46 Pulse Oximetry 99 07/04/21 16:46 Temperature 36.8 C 07/04/21 16:46 Temperature Source Skin 07/04/21 16:46 Pulse 104 H 07/04/21 16:46 Respiratory Rate 18 07/04/21 16:46 Respiratory Effort 07/04/21 16:55 Blood Pressure 119/70 07/04/21 16:46 Blood Pressure Position Sitting 07/04/21 16:46 Pulse Oximetry 99 07/04/21 16:46 Oxygen Delivery Method Room Air 07/04/21 16:46 Oxygen Flow Rate 0 07/04/21 16:46 Pain Level 0 07/04/21 17:47 Lab/Test Results Lab/Test Results: Laboratory Tests Range/Units 07/04/21 07/04/21 07/04/21 17:30 17:30 17:30 WBC Cancelled RBC Cancelled Hgb Cancelled Hct Cancelled MCV Cancelled MCH Cancelled MCHC Cancelled RDW Cancelled Plt Count Cancelled MPV Cancelled Immature Gran % Cancelled Neutrophils % Cancelled Band Neutrophils % Cancelled Lymphocytes % Cancelled Atypical Lymphs % Cancelled Monocytes % Cancelled Eosinophils % Cancelled Basophils % Cancelled Metamyelocytes % Cancelled Myelocytes % Cancelled Promyelocytes % Cancelled Other Cells % Cancelled Nucleated RBC % Cancelled Absolute Neutrophils Cancelled Absolute Lymphocytes Cancelled Absolute Monocytes Cancelled Absolute Eosinophils Cancelled Absolute Basophils Cancelled RBC Morphology Cancelled Polychromasia Cancelled Hypochromasia Cancelled Poikilocytosis Cancelled Basophilic Stippling Cancelled Anisocytosis Cancelled Microcytosis Cancelled Macrocytosis Cancelled Spherocytes Cancelled Tear Drop Cells Cancelled Ovalocytes Cancelled Stomatocytes Cancelled [place] Bodies Cancelled [place] Cells/Echinocytes Cancelled Acanthocytes (Spur) Cancelled Schistocytes Cancelled Sodium (136-145) mmol/L 144 Potassium (3.5-5.1) mmol/L 3.9 Chloride (98-107) mmol/L 108 H Carbon Dioxide (21.0-32.0) mmol/L 27.1 Anion Gap (3-11) mmol/L 8.9 BUN (7-18) mg/dL 28 H Creatinine (0.55-1.02) mg/dL 1.4 H Estimated GFR/1.73 m2 (mL/min/1.73m2) 36.96 Glucose (74-106) mg/dL 94 Calcium (8.5-10.1) mg/dL 8.8 Total Bilirubin (0.2-1.0) mg/dL 0.5 AST (15-37) U/L 13 L ALT (14-59) U/L 18 Alkaline Phosphatase (46-116) U/L 88 Total Protein (6.4-8.2) g/dL 6.5 Albumin (3.4-5.0) g/dL 3.0 L Patient ABO/Rh O Positive
--- NOTE | 2021-07-04 18:31 | NUR.NOTE ---
Nursing Note: Referral [facility] for recurrent rectal bleeding/needs colonoscopy; within 1 week. Shefali Yan
[2021-07-04 19:09] LABS: Abs Immature Grans 0.02 10^3/uL (0.0-0.06); Absolute Basophil Count 0.03 10^3/uL (0.0-0.2); Absolute Eosinophil Count 0.08 10^3/uL (0.0-0.7); Absolute Lymphocyte Count 2.35 10^3/uL (1.2-3.4); Absolute Monocyte Count 0.69 10^3/uL (0.1-0.8); Absolute Neutrophil Count 5.72 10^3/uL (1.2-6.7); Basophils % 0.3; Eosinophils % 0.9; HCT 36.8 % (36.0-46.0); Immature Grans % 0.2; Lymphocytes % 26.4; MCH 30.3 pg (27.0-33.0); MCHC 32.6 % (32.0-36.0); MCV 93 fL (80-95); MPV 9.4 fL (8.0-11.0); Monocytes % 7.8; Neutrophils % 64.4; Platelet Count 233 10^3/uL (130-400); RBC 3.96 10^6/uL (3.93-5.22); RDW 13.4 % (11.7-14.6); RDW-SD 45.6 fL; WBC 8.89 10^3/uL (4.4-10.8)
[2021-07-04 19:39] VITALS: BP 129/73; PULSE 90; RESP 18; O2SAT 97
== END 2021-07-04 19:30 | disposition home or self-care (01) ==
PROVIDERS: Emergency Provider Student in an Organized Health Care Education/Training Program; PCP Family Medicine
DX: K62.5 Hemorrhage of anus and rectum (principal)
CPT/HCPCS: 36415; 80053; 86850; 86900; 86901; 93005; 99283; 85025; 93010

== ENCOUNTER 2021-07-05 16:35 | Outpatient (REF) | payer MEDICARE, MEDICAID, SELFPAY ==
[2021-07-05 11:10] LABS: TSH (W/Ref FT4) 1.59 uIU/mL (0.36-3.74); Uric Acid 8.2 mg/dL (2.6-6.0)
[2021-07-05 11:17] LABS: Hemoglobin A1C 5.9 % (<5.7)
[2021-07-05 11:21] LABS: Calculated LDL 74 mg/dL (<100); Cholesterol 146 mg/dL (<200); HDL Cholesterol 54 mg/dL (40-60); Triglyceride 92 mg/dL (<150)
== END 2021-07-05 16:36 | disposition home or self-care (01) ==
LOC: NCHCN 16:35
PROVIDERS: PCP Family Medicine; Visit Provider Nurse Practitioner Family
DX: R53.83 Other fatigue (principal); E11.9 Type 2 diabetes mellitus without complications; E78.5 Hyperlipidemia, unspecified; M79.641 Pain in right hand; R41.3 Other amnesia; F32.9 Major depressive disorder, single episode, unspecified; F41.9 Anxiety disorder, unspecified; I10 Essential (primary) hypertension
CPT/HCPCS: 80061; 83036; 84443; 84550

== ENCOUNTER 2021-07-12 16:57 | Emergency (ER) | payer MEDICARE, MEDICAID, SELFPAY ==
[2021-07-12] VITALS (7 sets, daily range): BP systolic 99–141; BP diastolic 45–76; PULSE 82–90; RESP 12–24; TEMP 36.9; O2SAT 96–99
--- NOTE | 2021-07-12 17:00 | RT.EKG_ITS ---
APPROVED REPORT Exam: Resting ECG Reason for Exam: [facility] Patient Location: E HR:89 bpm ECG Measurements Heart Rate 89 AXIS TN 149 P 25 QRSd 92 QRS -10 QT 391 T 31 QTc 476 Conclusion Sinus rhythm...normal P axis, V-rate 60- 99
--- NOTE | 2021-07-12 17:12 | W.ED.GENAD ---
Discharge Plan Disposition Patient Disposition: HOME Discharge Details Clinical Impression: Bleeding internal hemorrhoids Primary Care Provider: Elke Jansen V ED Provider: Chandler Rubin Home Meds and New Rx's Prescriptions: New hydrocortisone [Anusol-HC] 2.5 % cream with perineal applicator 1 applic [place] BID-QID PRNQty: 30 0RF No Action furosemide [Lasix] 40 MG tablet 40 mg PO DAILY potassium chloride 10 MEQ capsule, extended release 20 meq PO DAILY (DME) FreeStyle Test 1 EACH strip 1 ea Miscellaneous TID gabapentin [Neurontin] 300 MG capsule 600 mg PO QID albuterol sulfate 8.5 GM HFA aerosol inhaler 2 puff Inhalation Q4H PRN cholecalciferol (vitamin D3) 1,000 UNIT capsule 1,000 unit PO TID nystatin (bulk) 1 EACH powder 1 ea miscellaneous BID Rx Instructions: APPLY TWO TIMES A DAY TO RASH UNDER BREAST AND IN GROIN (DME) lancets [FreeStyle Lancets] 1 EACH misc 1 ea Miscellaneous TID SPACER TEDS DAILY (DME) Freestyle [employer] Test Strips 1 EACH strip 1 ea Miscellaneous TID DIABETIC SHOES losartan 50 mg Tablet 50 mg PO DAILY cyclobenzaprine 10 mg Tablet 10 mg PO TID PRN nortriptyline 10 mg Capsule 10 mg PO QHS omeprazole 20 mg Capsule,Delayed Release(Dr/Ec) 20 mg PO DAILY ibuprofen 600 mg Tablet 600 mg PO TID PRN escitalopram oxalate 20 mg Tablet 30 mg PO DAILY Lantus Solostar U-100 Insulin 100 unit/mL (3 mL) Insulin Pen 10 unit SUBCUT QHS Tradjenta 5 mg Tablet 5 mg PO DAILY memantine [Namenda XR] 7 mg Capsule,Sprinkle,Er 24hr 7 mg PO DAILY lidocaine HCl [Lidocaine Plus] 4 % Cream 1 applic topical QID PRN PRN lorazepam 0.5 mg Tablet 0.5 mg PO BID PRN glipizide 10 mg tablet 10 mg PO BID Discharge Instructions Additional Instructions: You were found to have an internal bleeding hemorrhoid You should expect to see more blood on the paper with the bowel movements. Please follow-up with your doctors in The colonoscopy done next week. Medical Decision Making Anoscopy demonstrated internal hemorrhoids with evidence of bleeding. The patient is stable. CBC within normal limits. The patient is not anticoagulated. UA contaminated. She will follow-up next week for colonoscopy. In the meanwhile she was prescribed anusol. HPI General Date/Time Provider Initiated Documentation: 07/12/21 17:01. HPI Narrative: 71-year-old lady presents to the emergency department with rectal spotting. She was seen last week for the same reason. She was discharged after work-up in the emergency department has a colonoscopy scheduled for next week. She states that she was feeling fine. Then she noticed some spotting after bowel movements. No abdominal pain. No nausea or vomiting. She became anxious. Daughter refers to this as confusion. Patient presents to the emergency department with normal mental status. She has had no headaches. No shortness of breath no cough no chest pressure no palpitations. No urinary symptoms. No edema of the lower extremities. Acute episode of rectal bleeding. No exacerbating factors. Started spontaneously. No associated symptoms. Related Data Home Medications Medication Instructions Recorded Confirmed Spacer 11/06/13 06/06/18 Teds DAILY 11/06/13 06/06/18 albuterol sulfate 90 mcg/actuation 2 puff inhalation Q4H PRN 11/06/13 07/04/21 aerosol inhaler blood sugar diagnostic (FreeStyle 11/06/13 06/06/18 Test strips) cholecalciferol (vitamin D3) 25 1,000 unit PO TID 11/06/13 07/04/21 mcg (1,000 unit) capsule furosemide 40 mg tablet (Lasix) 40 mg PO DAILY 11/06/13 07/04/21 gabapentin 300 mg capsule 600 mg PO QID 11/06/13 07/04/21 (Neurontin) lancets 28 gauge (FreeStyle 11/06/13 06/06/18 Lancets) nystatin (bulk) 150 million unit 1 ea miscellaneous BID 11/06/13 07/04/21 powder potassium chloride 10 mEq 20 meq PO DAILY 11/06/13 07/04/21 capsule,extended release Diabetic Shoes 06/09/14 06/06/18 blood sugar diagnostic (Freestyle 06/09/14 06/06/18 [employer] Test Strips) cyclobenzaprine 10 mg tablet 10 mg PO TID PRN 12/29/18 07/04/21 escitalopram oxalate 20 mg tablet 30 mg PO DAILY 12/29/18 07/04/21 ibuprofen 600 mg tablet 600 mg PO TID PRN 12/29/18 07/04/21 insulin glargine 100 unit/mL (3 10 unit subcut QHS 12/29/18 07/04/21 mL) subcutaneous pen (Lantus Solostar U-100 Insulin) lidocaine HCl 4 % topical cream 1 applic topical QID PRN PRN 12/29/18 05/20/20 (Lidocaine Plus) linagliptin 5 mg tablet (Tradjenta) 5 mg PO DAILY 12/29/18 07/04/21 lorazepam 0.5 mg tablet 0.5 mg PO BID PRN 12/29/18 07/04/21 losartan 50 mg tablet 50 mg PO DAILY 12/29/18 07/04/21 memantine 7 mg capsule 7 mg PO DAILY 12/29/18 07/04/21 sprinkle,extended release 24hr (Namenda XR) nortriptyline 10 mg capsule 10 mg PO QHS 12/29/18 07/04/21 omeprazole 20 mg capsule,delayed 20 mg PO DAILY 12/29/18 07/04/21 release glipizide 10 mg tablet 10 mg PO BID 09/15/19 07/04/21 hydrocortisone 2.5 % topical cream 1 applic [place] BID-QID PRN #30 grams 07/12/21 with perineal applicator (Anusol-HC) Previous Rx's Medication Instructions Recorded hydrocortisone 2.5 % topical cream 1 applic WI BID-QID PRN #30 grams 07/12/21 with perineal applicator (Anusol-HC) Allergies Allergy/AdvReac Type Severity Reaction Status Date / Time allopurinol Allergy Severe Rash and Unverified 07/04/21 16:57 SOB aspirin Allergy Severe Anaphylaxsi Unverified 07/04/21 16:57 s colchicine AdvReac Intermediate Elevated Unverified 07/04/21 16:57 creatinine metformin AdvReac Intermediate Elevated Unverified 07/04/21 16:57 creatinine General Stated Complaint: GI Bleed DEL: 3 Review of Systems Narrative: Constitutional negative for fevers or chills. No malaise no fatigue HEENT negative Cardiovascular negative Respiratory no cough or shortness of breath GI see HPI negative MSK no myalgias or arthralgias Skin she is complaining of chronic rash in her skin folds. Neuro no headaches no paresthesias no focal weakness Psych no anxiety Endo no weight gain or weight loss does not know what her sugars have been like Hematological not on blood thinners PFSH All Active Problems (Updated 07/12/21 @ 18:58 by Chandler Rubin MD) Bleeding internal hemorrhoids (Acute) Vidal blood in stool (Acute) Bright red rectal bleeding (Acute) Delirium (Acute) SIRS (systemic inflammatory response syndrome) (Acute) Electrolyte abnormality (Acute) Medical History (Updated 07/12/21 @ 18:58 by Chandler Rubin MD) Acute UTI Asthma Depression Diabetes mellitus Fibromyalgia HTN (hypertension) Hx of hyperlipidemia Pneumonia Trochanteric bursitis of left hip (04/20/15) Trochanteric bursitis of right hip (04/20/15) Surgical History (Updated 05/20/20 @ 12:12 by Marta Evans DO) Ganglion cyst H/O section History of back surgery History of hysterectomy Hx of cholecystectomy Social History Smoking/Tobacco Use Status: Current every day Tobacco Type: cigarettes Smoking risk assessment performed?: Yes Alcohol Intake: never Drug use: Never Substance use type: does not use Do you feel safe at home: Yes Do you feel safe in your relationship?: Yes Exam Narrative Exam Narrative: Awake alert oriented x3 no acute distress pleasant cooperative obese PERRLA EOMI MMM anicteric Neck is supple no JVD Chest is clear to auscultation bilaterally Heart regular rhythm and rate no murmurs GI soft nondistended nontender. no CVAT Skin good cap refill Neuro grossly intact Extremities no edema good perfusion Psych good mood and affect Const General: cooperative and no acute distress HENMT Mouth: moist mucous membranes Resp Auscultation: clear to auscultation bilaterally, no rales, no rhonchi and no wheezes Cardio Rate: regular rate and not tachycardic Rhythm: regular rhythm GI Palpation: soft, not firm, no guarding, no masses, not rigid and nontender Rectal Exam - female: heme positive stool, No hemorrhoids and No laceration Other: Rectal exam was performed with female nurse Liss villarreal Skin General skin exam: no rashes or lesions noted Neuro General: patient alert, patient awake and tone normal Extrem General: no edema Psych Appearance: grossly normal Mental Status: mental status grossly normal Speech and Movement: speech and movement normal Course Vital Signs Vital signs: Vital Signs Temperature 36.9 C 07/12/21 17:01 Pulse 82 07/12/21 17:01 Respiratory Rate 12 07/12/21 17:01 Blood Pressure 122/76 07/12/21 17:01 Pulse Oximetry 99 07/12/21 17:01 Temperature 36.9 C 07/12/21 17:01 Temperature Source Oral 07/12/21 17:01 Pulse 82 07/12/21 17:01 Respiratory Rate 12 07/12/21 17:01 Blood Pressure 122/76 07/12/21 17:01 Blood Pressure Position Sitting 07/12/21 17:01 Pulse Oximetry 99 07/12/21 17:01 Oxygen Delivery Method Room Air 07/12/21 17:01 Oxygen Flow Rate 0 07/12/21 17:01 Pain Level 0 07/12/21 17:01 Procedures Other Description: Endoscopy was performed at bedside with senior ios software engineer. No external hemorrhoids seen. No fissures. Patient does have internal hemorrhoids. There is evidence that these have bled. Patient tolerated procedure well.
[2021-07-12 17:44] LABS: Abs Immature Grans 0.03 10^3/uL (0.0-0.06); Absolute Basophil Count 0.02 10^3/uL (0.0-0.2); Absolute Eosinophil Count 0.07 10^3/uL (0.0-0.7); Absolute Lymphocyte Count 2.62 10^3/uL (1.2-3.4); Absolute Neutrophil Count 3.49 10^3/uL (1.2-6.7); Basophils % 0.3; HCT 36.9 % (36.0-46.0); HGB 12.5 g/dL (11.2-15.7); Immature Grans % 0.4; Lymphocytes % 38.9; MCH 30.5 pg (27.0-33.0); MCHC 33.9 % (32.0-36.0); MCV 90 fL (80-95); MPV 9.2 fL (8.0-11.0); Monocytes % 7.4; Platelet Count 231 10^3/uL (130-400); RDW-SD 42.7 fL; WBC 6.73 10^3/uL (4.4-10.8)
[2021-07-12 17:52] LABS: Anion Gap 8.4 mmol/L (3-11); BUN 29 mg/dL (7-18); CO2 26.6 mmol/L (21.0-32.0); CREATININE 1.3 mg/dL (0.55-1.02); Calcium 8.9 mg/dL (8.5-10.1); Chloride 108 mmol/L (98-107); Estimated GFR 40.26 (mL/min/1.73m2); Glucose 113 mg/dL (74-106); Potassium 3.7 mmol/L (3.5-5.1); Sodium 143 mmol/L (136-145)
[2021-07-12 18:20] LABS: Bilirubin Negative (Negative); Blood Negative (Negative); Clarity Clear (Clear); Glucose Negative (Negative); Ketones Trace mg/dL (Negative); Leukocyte Esterase Trace (Negative); Nitrite Negative (Negative); Specific Gravity 1.025 (1.005-1.025); Urobilinogen 0.2 EU/dL (Up TO 0.2)
[2021-07-12 18:50] LABS: Bacteria Many HPF (Negative); C & S Indicated? No/Sq. Contamination; Casts Negative LPF (Negative); Crystals Negative HPF (Negative); Epithelial Cells Many HPF (Negative); Mucus Negative (Negative); WBC 20-50 HPF (0-5)
--- NOTE | 2021-07-13 09:51 | NUR.NOTE ---
Nursing Note: Patient called asking about her colonoscopy next week and how to get the information about it. I reviewed the provider note and it states to check with her provider about the procedure. I referred her to her PCP to get the information, Shefali Yan
== END 2021-07-12 19:09 | disposition home or self-care (01) ==
PROVIDERS: Emergency Provider Emergency Medicine; PCP Family Medicine
DX: K64.8 Other hemorrhoids (principal); R41.82 Altered mental status, unspecified
CPT/HCPCS: 36416; 80048; 82962; 93005; 99283; 81003; 81015; 85025; 93010

== ENCOUNTER → 2021-08-26 00:47 | Outpatient (CLI) | payer MEDICARE, MEDICAID, SELFPAY ==
--- OUTSIDE RECORDS SUMMARY | 2021-08-26 00:49 | XMS_ITS | Encounter Summary ---
:1950 Author Organization [facility] Address [address] [place] [address] Care Team Providers Name Role Phone Paulina Paige MD Primary Care Provider Encounter Details Date Type Department Care Team Description 07/07/1999 Results Only [facility] - Yeny Alba NP conversion [address] [place] [address] Social History Tobacco Use Types Packs/Day Years Used Date Never Assessed Sex Assigned at Date Recorded Not on file documented as of this encounter Plan of Treatment Not on filedocumented as of this encounter Procedures Procedure Name Priority Date/Time Associated Diagnosis Comme nts CYTOPATHOLOGY Routine 07/07/1999 0:00 EDT Results for this procedure are i n the results section . documented in this encounter Results CYTOPATHOLOGY (07/07/1999 0:00 EDT) Pathology Report: CYTOPATHOLOGY REPORT [facility] Reports generated via electronic interface contain portia ginal data; however they are lacking the format of the original re port. Caution should be taken when reading/interpreting unfo rmatted reports. Name: ? DAI COX ? Accession #: ? [id number] : ? 1950 (Age: 49) ??F ?Collect Date: ? 06/13 Location: ? [facility] ? Receive Date : ? 07/08/1999 Provider: ?YENY DURAN ENGINEERING OFFICER Copy to: ? Specimen/Source: ?ThinPrep Pap Test, Vagina Last Menstrual Period: ? 1996 Hormonal/Contraceptive Status: ? Yes Treatment History: ? Hysterectomy: ? SPECIMEN ADEQUACY ? Satisfactory for evaluation. GENERAL CATEGORIZATION ? Within Normal Limits ? Document reviewed and electronically signed by: ? AMPARO Cramer(ASCP) ? Report Date: ??07/12/1999 12:14 End of Report Specimen Performing Organization Address City/State/ZIP Code Phon e Number [facility] [address] [place] [address] SERVICES [facility] [address] [place] [address] documented in this encounter Visit Diagnoses Not on filedocumented in this encounter Care Teams Environmental Marketing Representative Relationship Specialty Start Date End Date Paulina Paige MD PCP - General 01/18/09 [facility] [address] [place], [place] [phone] documented as of this encounter
--- OUTSIDE RECORDS SUMMARY | 2021-08-26 00:49 | XMS_ITS | Encounter Summary ---
:1950 Author Organization [facility] Address [address] [place] [address] Care Team Providers Name Role Phone Paulina Paige MD Primary Care Provider Encounter Details Date Type Department Care Team Description 11/12/2020 Lab Requisition [facility] Outr Resulting Lab, Pathology & Laboratory Provider [facility] [address] [place] [address] Social History Tobacco Use Types Packs/Day Years Used Date Never Assessed Sex Assigned at Date Recorded Not on file documented as of this encounter Plan of Treatment Not on filedocumented as of this encounter Procedures Procedure Name Priority Date/Time Associated Diagnosis Comme nts COVID-19 TEST [facility] Today 11/11/2020 10:40 LAB PCR EDT COVID-19 TESTING Routine 11/11/2020 10:40 Results for this EDT procedure are i n the results section. documented in this encounter Results COVID-19 TEST [facility] PCR (11/11/2020 10:40 EDT) Specimen Swab - Entire nasopharynx (body structur e) Performing Organization Address City/State/ZIP Code Phon e Number [facility] [address] [place] [address] SERVICES COVID-19 TESTING (11/11/2020 10:40 EDT) COVID-19 rt-PCR Negative Negative [facility] Result Comment: [facility] This test has not been FDA c leared or approved. This test has been authorized by FDA under an EUA for use by authorized laboratories. This test has been authorized only for detection of nucleic acid fro SERVICES m 2018-nCoV, not for any oth er viruses or pathogens. This test is only authorized for the duration of the declaration that circumstances exist justifying the authorization of emergency use of in vitro d iagnostic tests for detectio n and/or diagnosis of 2019-nCoV under section 564(b)(1) of Act, 21 U.S.C ?? 360bbb-3(b) (1), unless the authorization is terminated or revoked sooner. Negative results do not prec lude 2019-nCoV infection and should not be used as the sole basis for treatment or other patient management decisions. Negative results must be combined with clinical observa tions, patient history, and epidemiological informatio n. Testing was performed using the john SARS-CoV-2 assay ([employer] on the John 6800 System Performing Lab [facility] [address] [facility] Lab [facility] SERVICES Specimen Swab Performing Organization Address City/State/ZIP Code Phon e Number [facility] [address] [place] [address] SERVICES documented in this encounter Visit Diagnoses Not on filedocumented in this encounter Care Teams Chief Of Surgery Relationship Specialty Start Date End Date Paulina Paige MD PCP - General 01/18/09 [facility] [address] [place], [place] [phone] documented as of this encounter
--- OUTSIDE RECORDS SUMMARY | 2021-08-26 00:49 | XMS_ITS | Encounter Summary ---
:1950 Author Organization [facility] Address [address] [place] [address] Care Team Providers Name Role Phone Paulina Paige MD Primary Care Provider Encounter Details Date Type Department Care Team Description 09/13/2019 Lab Requisition [facility] Outr Resulting Lab, Pathology & Laboratory Provider [facility] [address] [place] [address] Social History Tobacco Use Types Packs/Day Years Used Date Never Assessed Sex Assigned at Date Recorded Not on file documented as of this encounter Plan of Treatment Not on filedocumented as of this encounter Procedures Procedure Name Priority Date/Time Associated Diagnosis Comme nts COVID-19 TEST [facility] Today 09/12/2019 23:15 LAB PCR EDT COVID-19 TESTING Routine 09/12/2019 23:15 Results for this EDT procedure are i n the results section. documented in this encounter Results COVID-19 TEST [facility] LAB PCR (09/12/2019 23:15 EDT) Specimen Swab - Entire nasopharynx (body structur e) Performing Organization Address City/State/ZIP Code Phon e Number [facility] [address] [place] [address] SERVICES COVID-19 TESTING (09/12/2019 23:15 EDT) COVID-19 rt-PCR Negative Negative [facility] Result Comment: [facility] This test has not been FDA c leared or approved. This test has been authorized by FDA under an EUA for use by authorized laboratories. This test has been authorized only for detection of nucleic acid fro SERVICES m 2019-nCoV, not for any oth er viruses or [...] tions, patient history, and epidemiological informatio n. Performed on the [employer] Fusion instrument Performing Lab [place] [facility] Lab [facility] SERVICES Specimen Swab Performing Organization Address City/State/ZIP Code Phon e Number [facility] [address] [place] [address] SERVICES documented in this encounter Visit Diagnoses Not on filedocumented in this encounter Care Teams Merchandise Clerk Relationship Specialty Start Date End Date Paulina Paige MD PCP - General 01/18/09 [facility] [address] [place], [place] [phone] documented as of this encounter
--- OUTSIDE RECORDS SUMMARY | 2021-08-26 00:49 | XMS_ITS | Encounter Summary ---
:1950 Author Organization [facility] Address [address] [place] [address] Care Team Providers Name Role Phone Unavailable Primary Care Provider Unavailable Encounter Details Date Type Department Care Team Description 01/14/2009 Orders Only [facility] Ramos Styles MD Laboratory Services - [address] [place] [address] [phone] Social History Tobacco Use Types Packs/Day Years Used Date Never Assessed Sex Assigned at Date Recorded Not on file documented as of this encounter Plan of Treatment Not on filedocumented as of this encounter Procedures Procedure Name Priority Date/Time Associated Diagnosis Comme [facility] SURGICAL PATHOLOGY Routine 01/14/2009 0:00 EST Re sults for this procedure are i n the results section. documented in this encounter Results SURGICAL PATHOLOGY (01/14/2009 0:00 EST) Pathology Report: SURGICAL PATHOLOGY REPORT ? [facility] generated via 5minutes interface contain original data; ? LAB however they are lacking the format of the original report. ? Caution should be taken when reading/interpreting unformatted reports. ? Name: ? COX, DAI R ? Accession #: ? [id number] ? : ? 1950 (Age: 58) ??F ? Collec t Date: ? 01/14/2009 ? Location: ? [facility] ? R eceive Date: ? 01/15/2009 ? Provider: ADRIENNE CARRILLOELSON MD ? Copy to: DAINA READY MD ? Final Pathologic Diagnosis: ? Colon, sigmoid, 25 cm , polyp, biopsy: ? - Tubular adenoma. ? Document reviewed and electr onically signed by: ? Kaitlyn Munoz MD ? Report ??Date: 01/18/2009 12 :49 ? By the signature above, the attending physician certifies that he/she has ? personally conducted a gross and/or microscopic examination of the described ? specimens and rendered or co nfirmed the above diagnosis. ? Specimen(s) Received: ? Sigmoid 25 cm ? Clinical History: ? Screening ? Gross Description: ? Received in Aranza' s labelled Cox, Dai and polyp sigmoid 25 cm is a hudson-pink polypoid soft tissu e measuring 0.2 x 0.2 x 0.2 cm. ??The specimen is ? submitted entirely in [facility]. ??(A. Felipe)/ljn ? End of Report ? Specimen Performing Organization Address City/State/ZIP Code Phon e Number [facility] [address] [place] [address] SERVICES [facility] [address] [place] [address] documented in this encounter Visit Diagnoses Not on filedocumented in this encounter
--- OUTSIDE RECORDS SUMMARY | 2021-08-26 00:49 | XMS_ITS | Encounter Summary ---
:1950 Author Organization [facility] Address [address] [place] [address] Care Team Providers Name Role Phone Daina Aponte MD Primary Care Provider Encounter Details Date Type Department Care Team Description 11/06/2006 Results Only [facility] - Daina Garcia MD [facility] [address] [facility] [address] [place], [place] [phone] [place] [id number] (Wo rk) Social History Tobacco Use Types Packs/Day Years Used Date Never Assessed Sex Assigned at Date Recorded Not on file documented as of this encounter Plan of Treatment Not on filedocumented as of this encounter Procedures Procedure Name Priority Date/Time Associated Diagnosis Comme nts SURGICAL PATHOLOGY Routine 11/06/2006 0:00 EDT Re sults for this procedure are i n the results section. documented in this encounter Results SURGICAL PATHOLOGY (11/06/2006 0:00 EDT) Pathology SURGICAL PATHOLOGY REPORT [facility] Report: Reports generated via electronic interface contain portia ginal data; LAB however they are lacking the format of the original re port. Caution should be taken when reading/interpreting unfo rmatted reports. Name: ? DAI COX ? Accession #: ? [id number] ? : ? 1950 (Age: 56) ??F ? Collect Date: ? 11/06/2006 ? Location: ? [facility] ? Receive Date: ? 007 ? Provider: DAINA APONTE MD Copy to: ? Final Pathologic Diagnosis: A. ?Skin of neck, left posterior, punch b iopsy: 1. ?Epidermal h yperplasia with dermal fibrosis, granulation tissue, and foreign body giant cell reaction. See comment. B. ?Skin of arm, left upper, shave biopsy : ? 1. ?? Lichen simplex chronicus (prurigo nodular is). Comment: ? The superficial porti on of both biopsies show features of lichen simplex chronicus/prurigo nodularis (that is, changes secondar y to chronic rubbing/irritation). The biopsy from le ft upper arm has minimal inflammation or other specific changes. The biopsy from posterior neck left has a significant dermal inflammat ory infiltrate that appears to be associated with a follicular unit. These features are suggestive of rupt ured folliculitis and secondary changes of rubbing. (Dr. Navarro)/[facility] Microscopic Description: ? Sections from paper and pulp mill operator ior neck left consist of a punch biopsy of skin to the deep reticular dermis. The epidermis is irregularly hyperplastic with mild hyperkeratosis. At one edge of the biopsy, the epidermis shows reactive changes and the overlying stratum corneum has scale crust. The dermis is marked by fibrosis with expansion of the dermal papillae. Along the edge of the biopsy, beneath the crust, there is a moderately dense inflamm atory infiltrate that appears to be associated with a follicular tract. The infiltrate includes numerous multinucleate foreign body giant cells in add ition to lymphocytes, histiocytes, and occasional eosinophils. Small aggrega daphne of neutrophils surround spaces with keratin ous debris. No organisms are identified on sections prepared with Martir and Zamzam stains. ? Sections from left upper arm consist of a pun ch biopsy of skin. The stratum corneum is thickened by orthohyp erkeratosis with foci of parakeratosis and scale crust. ??The epide rmis shows marked irregular hyperplasia with elongate and thickened rete ridges. ? ?The keratinocytes show mild reactive changes with an accentuated granular layer. ??The dermal papillae are widened by thick bundles of collagen oriented in a verti lucio array. There is mild chronic inflammation. ??(Dr. Navarro)/[facility] Document reviewed and electronically signed by: Georgiana Navarro MD Report ??Date: 11/13/2006 14:24 By the signature above, the attending physician certif ies that he/she has personally conducted a gross and/or microscopic examin ation of the described specimens and rendered or confirmed the above diagnosi s. Specimen(s) Received: A. ?L posterior neck (#1) B. ? L upper arm (#2) Clinical History: ? Multiple ??pruritic macules x years, prob able nervous excoriations, pt without awareness of scratching, wanting reassurance Gross Description: ? Received in formalin labelled Cox and posterior neck left is a 0.2 cm in diameter pale hudson skin pu nch excised to a maximum depth of 0.3 cm. ??Submitted intact as (A). Received in formalin labelled Cox and left upper arm is a 0.2 cm in diameter white-hudson skin punc h excised to a maximum depth of 0.4 cm. ??Submitted intact as (B). ??(Edison Barton)/[facility] ?? End of Report Specimen Performing Organization Address City/State/ZIP Code Phon e Number [facility] [address] [place] [address] SERVICES [facility] [address] [place] [address] documented in this encounter Visit Diagnoses Not on filedocumented in this encounter Care Teams Transportation Aide Relationship Specialty Start Date End Date Daina Aponte MD PCP - General 01/18/09 [facility] [address] [place], [place] [phone] documented as of this encounter
== END ==
PROVIDERS: PCP Family Medicine; Visit Provider Family Medicine

== ENCOUNTER 2021-09-07 08:52 | Emergency (ER) | payer MEDICARE, MEDICAID, SELFPAY ==
[2021-09-07 09:04] VITALS: BP 116/53; PULSE 88; RESP 14; TEMP 36.7; O2SAT 100
--- NOTE | 2021-09-07 09:19 | ED.GENADUL_ITS ---
Discharge Plan Disposition Patient Disposition: HOME Condition: Stable Discharge Details Clinical Impression: Cellulitis of left abdominal wall Primary Care Provider: Elke Jansen V ED Provider: Ross Kessler Home Meds and New Rx's Prescriptions: New cephalexin 500 mg capsule 500 mg PO TID 7 Days Qty: 21 0RF nystatin 100,000 unit/gram cream 1 applic topical BID 7 Days Qty: 30 0RF Continued furosemide [Lasix] 40 MG tablet 40 mg PO DAILY potassium chloride 10 MEQ capsule, extended release 20 meq PO DAILY (DME) FreeStyle Test 1 EACH strip 1 ea Miscellaneous TID gabapentin [Neurontin] 300 MG capsule 600 mg PO QID albuterol sulfate 8.5 GM HFA aerosol inhaler 2 puff Inhalation Q4H PRN cholecalciferol (vitamin D3) 1,000 UNIT capsule 1,000 unit PO TID nystatin (bulk) 1 EACH powder 1 ea miscellaneous BID Rx Instructions: APPLY TWO TIMES A DAY TO RASH UNDER BREAST AND IN GROIN (DME) lancets [FreeStyle Lancets] 1 EACH misc 1 ea Miscellaneous TID SPACER TEDS DAILY (DME) Freestyle [employer]x Test Strips 1 EACH strip 1 ea Miscellaneous TID DIABETIC SHOES losartan 50 mg Tablet 50 mg PO DAILY cyclobenzaprine 10 mg Tablet 10 mg PO TID PRN nortriptyline 10 mg Capsule 10 mg PO QHS omeprazole 20 mg Capsule,Delayed Release(Dr/Ec) 20 mg PO DAILY ibuprofen 600 mg Tablet 600 mg PO TID PRN escitalopram oxalate 20 mg Tablet 30 mg PO DAILY Lantus Solostar U-100 Insulin 100 unit/mL (3 mL) Insulin Pen 10 unit SUBCUT QHS Tradjenta 5 mg Tablet 5 mg PO DAILY memantine [Namenda XR] 7 mg Capsule,Sprinkle,Er 24hr 7 mg PO DAILY lidocaine HCl [Lidocaine Plus] 4 % Cream 1 applic topical QID PRN PRN lorazepam 0.5 mg Tablet 0.5 mg PO BID PRN glipizide 10 mg tablet 10 mg PO BID hydrocortisone [Anusol-HC] 2.5 % cream with perineal applicator 1 applic SC BID-QID PRNQty: 30 0RF Discharge Instructions Instructions: Cellulitis (ED) Additional Instructions: Leave the Mepilex bandage in place for 3 to 7 days time and then remove. Apply nystatin cream to area of skin folds for 1 week. Keflex oral antibiotic for 1 week as prescribed. Return to the ER if develop a fever, increasing discomfort or any other acute concern. Medical Decision Making This is a 71-year-old female who has longstanding lower abdominal intertriginous area of skin fold that she treats with a daily powder. Yesterday she noticed above that region an area of skin ulceration and tenderness. She appears to have an early cellulitis and ulcerated skin as well as the after mentioned area where she has mild and probable chronic yeast infection. We will treat with topical nystatin as well as a course of oral Keflex. A Mepilex bandage was placed to remain in place for 72 hours. She is stable and appropriate for this trial of outpatient management. Discussed with the patient I do not feel this is shingles but she will maintain vigilance for progression of the rash. HPI General Mode of arrival: ambulatory . Date/Time Provider Initiated Documentation: 09/07/21 08:52 . Limitations to Documentation: no limitations . History of Present Illness 71 year old F presents to the emergency department with the chief complaint of Left lower quadrant rash and irritation for 1 day, described as mild, Qualit y is described as dull and constant, and is localized to the abdomen and left. Patient reports no radiation. Patient started experiencing this day(s) and it has been constant. No relieving factors improve symptom(s), No exacerbating factors reported . Patient notes denies fever/chills. Patient did receive the following treatments prior to arrival, none Related Data Home Medications Medication Instructions Recorded Confirmed Spacer 11/06/13 06/06/18 Teds DAILY 11/06/13 06/06/18 albuterol sulfate 90 mcg/actuation 2 puff inhalation Q4H PRN 11/06/13 07/04/21 aerosol inhaler blood sugar diagnostic ([facility] [place] 11/06/13 06/06/18 Test strips) cholecalciferol (vitamin D3) 25 1,000 unit PO TID 11/06/13 07/04/21 mcg (1,000 unit) capsule furosemide 40 mg tablet (Lasix) 40 mg PO DAILY 11/06/13 07/04/21 gabapentin 300 mg capsule 600 mg PO QID 11/06/13 07/04/21 (Neurontin) lancets 28 gauge (FreeStyle 11/06/13 06/06/18 Lancets) nystatin (bulk) 150 million unit 1 ea miscellaneous BID 11/06/13 07/04/21 powder potassium chloride 10 mEq 20 meq PO DAILY 11/06/13 07/04/21 capsule,extended release Diabetic Shoes 06/09/14 06/06/18 blood sugar diagnostic (Freestyle 06/09/14 06/06/18 [employer]x Test Strips) cyclobenzaprine 10 mg tablet 10 mg PO TID PRN 12/29/18 07/04/21 escitalopram oxalate 20 mg tablet 30 mg PO DAILY 12/29/18 07/04/21 ibuprofen 600 mg tablet 600 mg PO TID PRN 12/29/18 07/04/21 insulin glargine 100 unit/mL (3 10 unit subcut QHS 12/29/18 07/04/21 mL) subcutaneous pen (Lantus Solostar U-100 Insulin) lidocaine HCl 4 % topical cream 1 applic topical QID PRN PRN 12/29/18 05/20/20 (Lidocaine Plus) linagliptin 5 mg tablet (Tradjenta) 5 mg PO DAILY 12/29/18 07/04/21 lorazepam 0.5 mg tablet 0.5 mg PO BID PRN 12/29/18 07/04/21 losartan 50 mg tablet 50 mg PO DAILY 12/29/18 07/04/21 memantine 7 mg capsule 7 mg PO DAILY 12/29/18 07/04/21 sprinkle,extended release 24hr (Namenda XR) nortriptyline 10 mg capsule 10 mg PO QHS 12/29/18 07/04/21 omeprazole 20 mg capsule,delayed 20 mg PO DAILY 12/29/18 07/04/21 release glipizide 10 mg tablet 10 mg PO BID 09/15/19 07/04/21 hydrocortisone 2.5 % topical cream 1 applic SC BID-QID PRN #30 grams 07/12/21 with perineal applicator (Anusol-HC) cephalexin 500 mg capsule 500 mg PO TID 7 days #21 caps 09/07/21 nystatin 100,000 unit/gram topical 1 applic topical BID 7 days #30 09/07/21 cream grams Previous Rx's Medication Instructions Recorded hydrocortisone 2.5 % topical cream 1 applic SC BID-QID PRN #30 grams 07/12/21 with perineal applicator (Anusol-HC) cephalexin 500 mg capsule 500 mg PO TID 7 days #21 caps 09/07/21 nystatin 100,000 unit/gram topical 1 applic topical BID 7 days #30 09/07/21 cream grams Allergies Allergy/AdvReac Type Severity Reaction Status Date / Time allopurinol Allergy Severe Rash and Unverified 09/07/21 09:08 SOB aspirin Allergy Severe Anaphylaxsi Unverified 09/07/21 09:08 s colchicine AdvReac Intermediate Elevated Unverified 09/07/21 09:08 creatinine metformin AdvReac Intermediate Elevated Unverified 09/07/21 09:08 creatinine General Stated Complaint: RashLesion DEL: 4 Review of Systems Narrative: Has lower abdominal area of skin fold she treats with powder. New rash above this. No fever or systemic illness. 6 systems reviewed and otherwise negative PFSH All Active Problems (Updated 09/07/21 @ 09:23 by Ross Kessler MD) Cellulitis of left abdominal wall (Acute) Vidal blood in stool (Acute) Delirium (Acute) SIRS (systemic inflammatory response syndrome) (Acute) Electrolyte abnormality (Acute) Medical History Acute UTI Asthma Depression Diabetes mellitus Fibromyalgia HTN (hypertension) Hx of hyperlipidemia Pneumonia Trochanteric bursitis of left hip (04/20/15) Trochanteric bursitis of right hip (04/20/15) Surgical History Ganglion cyst H/O section History of back surgery History of hysterectomy Hx of cholecystectomy Social History Smoking/Tobacco Use Status: Current every day Tobacco Type: cigarettes Smoking risk assessment performed?: Yes Alcohol Intake: never Drug use: Never Substance use type: does not use Do you feel safe at home: Yes Do you feel safe in your relationship?: Yes Exam Narrative Exam Narrative: GEN: awake, alert, oriented 3. Pleasant, well groomed, interactive. HEAD: Normocephalic, atraumatic EYES: PERRL, EOMI NECK: Full ROM, no ADELA, no menigismus CHEST/RESP: Nontender, clear to auscultation bilateral, no wheeze/rhonchi/rales CARDIOVASCULAR: RRR, no murmur, rub jessica. 2+ Rad pulse bilateral ABDOMEN: Soft, nontender, no mass. No focal abdominal wall reveals a serpiginous area of ulcerated skin that is mild and measures approximately 2 x 3 cm. Below that in the suprapubic region there is a skin fold with mild skin irritation and erythema. No discharge, fluctuance or tenderness. Neuro: Grossly normal neurologic exam, conversant, interactive. Psych: Speech fluent, thoughts congruent, affect normal Course Vital Signs Vital signs: Vital Signs Temperature 36.7 C 09/07/21 09:04 Pulse 88 09/07/21 09:04 Respiratory Rate 14 09/07/21 09:04 Blood Pressure 116/53 L 09/07/21 09:04 Pulse Oximetry 100 09/07/21 09:04 Temperature 36.7 C 09/07/21 09:04 Temperature Source Temporal Artery Scan 09/07/21 09:04 Pulse 88 09/07/21 09:04 Respiratory Rate 14 09/07/21 09:04 Respiratory Effort Non-Labored 09/07/21 09:09 Blood Pressure 116/53 L 09/07/21 09:04 Blood Pressure Position Supine 09/07/21 09:04 Pulse Oximetry 100 09/07/21 09:04 Oxygen Delivery Method Room Air 09/07/21 09:04 Oxygen Flow Rate 0 09/07/21 09:04 Pain Level 6 09/07/21 09:04 Comment 09/07/21 09:04
== END 2021-09-07 09:36 | disposition home or self-care (01) ==
PROVIDERS: Emergency Provider Emergency Medicine; PCP Family Medicine
DX: L98.499 Non-pressure chronic ulcer of skin of other sites with unspecified severity (principal); L03.311 Cellulitis of abdominal wall; J45.909 Unspecified asthma, uncomplicated; E11.9 Type 2 diabetes mellitus without complications; I10 Essential (primary) hypertension; F32.A Depression, unspecified; F17.210 Nicotine dependence, cigarettes, uncomplicated; Z79.4 Long term (current) use of insulin; Z79.84 Long term (current) use of oral hypoglycemic drugs
CPT/HCPCS: 99283; 99284

== ENCOUNTER 2021-09-18 19:04 | Emergency (ER) | payer MEDICARE, MEDICAID, SELFPAY ==
[2021-09-18] VITALS (38 sets, daily range): BP systolic 113–190; BP diastolic 46–142; PULSE 61–102; RESP 13–29; TEMP 36.3; O2SAT 95–100
--- NOTE | 2021-09-18 19:00 | RT.EKG_ITS ---
APPROVED REPORT Exam: Resting ECG Reason for Exam: chest pain Patient Location: E HR:74 bpm ECG Measurements Heart Rate 74 AXIS CO 151 P 31 QRSd 98 QRS -16 QT 449 T 19 QTc 474 Conclusion Sinus rhythm...normal P axis, V-rate 60- 99 Low voltage, precordial leads...precordial leads <1.0mV
--- NOTE | 2021-09-18 19:15 | DI.RAD_ITS ---
Exam(s) XR CHEST 2V PA LATERAL EXAM: XR CHEST 2V PA LATERAL CLINICAL HISTORY: Confusion. TECHNIQUE: 2D digital imaging was performed. COMPARISON: CR,XR XR PORTABLE CHEST AP from 09/14/2019 FINDINGS: 2 views: Mild cardiomegaly. Mediastinum not widened Lungs are clear. No infiltrates nor pleural effusions. IMPRESSION: No acute pulmonary findings.Mild cardiomegaly. DATA REPOSITORY: RADIATION DOSE DELIVERED:
--- NOTE | 2021-09-18 19:15 | DI.CT_ITS ---
Exam(s) CT HEAD WO EXAM: CT HEAD WO CLINICAL HISTORY: Confusion,. TECHNIQUE: Imaging Protocol: Axial computed tomography images with coronal and sagittal reformatted images were created and reviewed COMPARISON: No exams were available for comparison FINDINGS: There are no skull fractures nor fluid in the visualized paranasal sinuses. There is no evidence of intracranial hemorrhage, mass effect, or shift of midline structures. There are no extra-axial fluid collections. The ventricles are not enlarged or shifted and there is no blo od within the ventricular system nor within the basal cisterns. IMPRESSION: No acute intracranial findings on this noninfused CT scan of the brain. RADIATION DOSE DELIVERED: 742.2mGy.cm Total DLP DATA REPOSITORY: All CT scans at this facility are submitted to the National Radiology Data Registry (NRDR) Dose Index Registry (DIR) with the [employer] (ACR). RADIATION OPTIMIZATION: All CT scans at this facility use at least one of these dose optimization te chniques: automated exposure control; mA and/or kV adjustment per patient size (includes targeted exa ms where dose is matched to clinical indication); or iterative reconstruction.
--- NOTE | 2021-09-18 19:27 | W.ED.GENAD ---
Discharge Plan Disposition Patient Disposition: HOME Condition: Stable Discharge Details Clinical Impression: Hypoglycemia Primary Care Provider: Elke Jansen V ED Provider: Tammy Gr Home Meds and New Rx's Prescriptions: Continued furosemide [Lasix] 40 MG tablet 40 mg PO DAILY potassium chloride 10 MEQ capsule, extended release 20 meq PO DAILY (DME) FreeStyle Test 1 EACH strip 1 ea Miscellaneous TID gabapentin [Neurontin] 300 MG capsule 600 mg PO QID albuterol sulfate 8.5 GM HFA aerosol inhaler 2 puff Inhalation Q4H PRN cholecalciferol (vitamin D3) 1,000 UNIT capsule 1,000 unit PO TID nystatin (bulk) 1 EACH powder 1 ea miscellaneous BID Rx Instructions: APPLY TWO TIMES A DAY TO RASH UNDER BREAST AND IN GROIN (DME) lancets [FreeStyle Lancets] 1 EACH misc 1 ea Miscellaneous TID SPACER TEDS DAILY (DME) Freestyle InsuLinx Test Strips 1 EACH strip 1 ea Miscellaneous TID DIABETIC SHOES losartan 50 mg Tablet 50 mg PO DAILY cyclobenzaprine 10 mg Tablet 10 mg PO TID PRN nortriptyline 10 mg Capsule 10 mg PO QHS omeprazole 20 mg Capsule,Delayed Release(Dr/Ec) 20 mg PO DAILY ibuprofen 600 mg Tablet 600 mg PO TID PRN escitalopram oxalate 20 mg Tablet 30 mg PO DAILY insulin glargine [Lantus Solostar U-100 Insulin] 100 unit/mL (3 mL) Insulin Pen 10 unit SUBCUT QHS Tradjenta 5 mg Tablet 5 mg PO DAILY memantine [Namenda XR] 7 mg Capsule,Sprinkle,Er 24hr 7 mg PO DAILY lidocaine HCl [Lidocaine Plus] 4 % Cream 1 applic topical QID PRN PRN lorazepam 0.5 mg Tablet 0.5 mg PO BID PRN glipizide 10 mg tablet 10 mg PO BID hydrocortisone [Anusol-HC] 2.5 % cream with perineal applicator [address] BID-QID PRNQty: 30 0RF Discharge Instructions Instructions: Hypoglycemia in a Person with Diabetes (ED), What to Do if Your Blood Sugar is Low (ED) Additional Instructions: At this time your blood sugar is stabilized. There is no evidence of heart attack, head CT and chest x-ray are within normal limits. Your last blood sugar was 137. Please check your blood sugar frequently throughout the next 12 to 24 hours. Please eat 3 meals a day regularly. If you feel like your blood sugar is getting low please drink some orange juice or eat something with protein in it. CT head shows chronic changes but nothing acute. I am concerned at this time for the state of your house and it may be time to accept some additional help in the home. Please follow-up with [facility] human services or [facility]. You may also call 211. [facility] or Follow up with primary care provider in 3-5 days. Return to ED sooner if any worsening or concerns. Increase oral fluids. Referrals: Elke Jansen MD [Primary Care Provider] - 3 days Discharge Data Discharge Date/Time-TO BE ENTERED AT DEPARTURE: 09/19/21 00:34 Medical Decision Making 71-year-old female presents to the ER via EMS with a chief of complaint of hypoglycemia and confusion. Patient was found to have a blood glucose of 45 on scene she was given 30 g of oral glucose and 250 mils of D10 prior to arrival. Her glucose and went up to 153. She is noted to be confused. She denies any headache, back pain, chest pain shortness of breath denies any nausea vomiting diarrhea. However she is confused and does not know what medication she takes or if she took her medications today. She is unable to tell me if she has eaten today. She does have a sulfonylurea listed as a medication, Lantus and Tradjenta. Per EMS questionable living circumstances EMS reports that there was pasta to eat but no milk or any other food and the house was in severe disrepair. There is also a question of weather there is running water in the home. EKG performed by [facility] operations staff officer upon arrival. Cardiac work-up ordered. BGL x1 hour ordered. Octreotide 100 mcg subcu ordered. CBC shows no leukocytosis, absolute neutrophils 6.82, lymphocytes 1.18, CMP shows creatinine which is 1.1 GFR 48, glucose 122, initial troponin within normal limits. Urinalysis shows no evidence of urinary tract infection. 2020: Spoke with daughter Genny who is at bedside, she reports that she is concerned that patient is not taking care of herself or her 3 adopted children adequately. She reports that she does have an 18-year-old adopted daughter who just moved out his name is Sissy. There is a 20-year-old autistic nonverbal adopted child who is at home and a 13 or 14-year-old male child also at home. She does reiterate the report that EMS gave me about the state of the house. She reports that she does have running water but no active working performing including unable to flush the toilet or take shower bath in the home. She also reports that the home has a roof that is caving in. The patient herself does tell me that she does not have a working car. 2100: Patient reevaluation she appears much more alert and oriented she is able to tell me that she did take her medications this morning but she is unable to tell me what the names of her medications are. Repeat CBG x2 is 130 or greater, please see nurses notes. 2230: Report made with Adult Protective Services and children family services. Department of children and families is aware of the patient. Mental health eval ordered. When further questioning discussed with patient if she feels depressed per her daughter Genny she reported that few days ago patient did make suicidal statements and made statements such as I do not want to be here anymore I don't care. 0018: Mental health evaluation completed by Marcelina with any [facility], patient is refusing to fully open up and have the evaluation done. She is requesting to be discharged. Awaiting patient arrived. Genny daughter is in the waiting room until her backup ride is here. This text was generated using [employer] dictation system, please disregard any oddities of phrase or misspellings. Medical Records Medical records reviewed: Yes I reviewed the patient's medical records. Imaging Data Radiologic Study: Imaging: CT Scan Radiologist's impression: FINDINGS: Brain: Lamb-white matter differentiation is within normal limits. No mass effect or midline shift. There are mild nonspecific patchy foci of periventricular white matter hypodensity, probably due to chronic microvascular ischemic changes. Sulci and basilar cisterns are prominent due to parenchymal volume loss. No extra-axial fluid collection. Cerebral ventricles: No ventriculomegaly. Paranasal sinuses: Visualized sinuses are unremarkable. No fluid levels. Mastoid air cells: Visualized mastoid air cells are well aerated. Bones/joints: No acute fracture. Soft tissues: Unremarkable. IMPRESSION: No acute intracranial abnormality. Radiologic Study #2: Imaging: X-Ray Radiologist's impression: Views: 2 views. COMPARISON: XR PORTABLE CHEST AP 09/14/2019 11:13 AM FINDINGS: Lungs: Unremarkable. No consolidation. Pleural spaces: Unremarkable. No pleural effusion. No pneumothorax. Heart/Mediastinum: Unremarkable. No cardiomegaly. Bones/joints: Mild dextroscoliosis of thoracic spine. IMPRESSION: No acute findings. HPI General Mode of arrival: EMS. Date/Time Provider Initiated Documentation: 09/18/21 19:07. Limitations to Documentation: altered mental status. Information obtained by: patient, family, EMS, RN notes reviewed and old records reviewed. HPI Narrative: 71-year-old female presents to the ER via EMS with a chief of complaint of hypoglycemia and confusion. Patient was found to have a blood glucose of 45 on scene she was given 30 g of oral glucose and 250 mils of D10 prior to arrival. Her glucose and went up to 153. She is noted to be confused. She denies any headache, back pain, chest pain shortness of breath denies any nausea vomiting diarrhea. However she is confused and does not know what medication she takes or if she took her medications today. She is unable to tell me if she has eaten today. She does have a sulfonylurea listed as a medication, Lantus and Tradjenta. Per EMS questionable living circumstances EMS reports that there was pasta to eat but no milk or any other food and the house was in severe disrepair. There is also a question of weather there is running water in the home. Related Data Home Medications Medication Instructions Recorded Confirmed Spacer 11/06/13 06/06/18 Teds DAILY 11/06/13 06/06/18 albuterol sulfate 90 mcg/actuation 2 puff inhalation Q4H PRN 11/06/13 09/18/21 aerosol inhaler blood sugar diagnostic (Work Insp[employer] 11/06/13 06/06/18 Test strips) cholecalciferol (vitamin D3) 25 1,000 unit PO TID 11/06/13 09/18/21 mcg (1,000 unit) capsule furosemide 40 mg tablet (Lasix) 40 mg PO DAILY 11/06/13 09/18/21 gabapentin 300 mg capsule 600 mg PO QID 11/06/13 09/18/21 (Neurontin) lancets 28 gauge (FreeStyle 11/06/13 06/06/18 Lancets) nystatin (bulk) 150 million unit 1 ea miscellaneous BID 11/06/13 09/18/21 powder potassium chloride 10 mEq 20 meq PO DAILY 11/06/13 09/18/21 capsule,extended release Diabetic Shoes 06/09/14 06/06/18 blood sugar diagnostic (Freestyle 06/09/14 06/06/18 InsuLinx Test Strips) cyclobenzaprine 10 mg tablet 10 mg PO TID PRN 12/29/18 09/18/21 escitalopram oxalate 20 mg tablet 30 mg PO DAILY 12/29/18 09/18/21 ibuprofen 600 mg tablet 600 mg PO TID PRN 12/29/18 09/18/21 insulin glargine 100 unit/mL (3 10 unit subcut QHS 12/29/18 07/04/21 mL) subcutaneous pen (Lantus Solostar U-100 Insulin) lidocaine HCl 4 % topical cream 1 applic topical QID PRN PRN 12/29/18 09/18/21 (Lidocaine Plus) linagliptin 5 mg tablet (Tradjenta) 5 mg PO DAILY 12/29/18 09/18/21 lorazepam 0.5 mg tablet 0.5 mg PO BID PRN 12/29/18 09/18/21 losartan 50 mg tablet 50 mg PO DAILY 12/29/18 09/18/21 memantine 7 mg capsule 7 mg PO DAILY 12/29/18 09/18/21 sprinkle,extended release 24hr (Namenda XR) nortriptyline 10 mg capsule 10 mg PO QHS 12/29/18 09/18/21 omeprazole 20 mg capsule,delayed 20 mg PO DAILY 12/29/18 09/18/21 release glipizide 10 mg tablet 10 mg PO BID 09/15/19 09/18/21 hydrocortisone 2.5 % topical cream [address] BID-QID PRN #30 grams 07/12/21 09/18/21 with perineal applicator (Anusol-HC) Previous Rx's Medication Instructions Recorded hydrocortisone 2.5 % topical cream [address] BID-QID PRN #30 grams 07/12/21 with perineal applicator (Anusol-HC) Allergies Allergy/AdvReac Type Severity Reaction Status Date / Time allopurinol Allergy Severe Rash and Unverified 09/18/21 19:58 SOB aspirin Allergy Severe Anaphylaxsi Unverified 09/18/21 19:58 s colchicine AdvReac Intermediate Elevated Unverified 09/18/21 19:58 creatinine metformin AdvReac Intermediate Elevated Unverified 09/18/21 19:58 creatinine General Stated Complaint: Diabetes DEL: 4 Review of Systems Narrative: history limited by patient confusion, majority of history received by EMS. All systems reviewed & are unremarkable except as noted in HPI and below Constitutional Constitutional: Reports as per HPI, Denies headache(s) and Reports poor appetite ENT Ears, Nose, Mouth, and Throat: Denies headache(s) Neurologic Neurologic: Denies headache(s) PFSH All Active Problems (Updated 09/19/21 @ 00:06 by Tammy Gr NP) Cellulitis of left abdominal wall (Acute) Hypoglycemia (Acute) Vidal blood in stool (Acute) Delirium (Acute) SIRS (systemic inflammatory response syndrome) (Acute) Electrolyte abnormality (Acute) Medical History Acute UTI Asthma Depression Diabetes mellitus Fibromyalgia HTN (hypertension) Hx of hyperlipidemia Pneumonia Trochanteric bursitis of left hip (04/20/15) Trochanteric bursitis of right hip (04/20/15) Surgical History Ganglion cyst H/O section History of back surgery History of hysterectomy Hx of cholecystectomy Social History Smoking/Tobacco Use Status: Current every day Tobacco Type: cigarettes Smoking risk assessment performed?: Yes Alcohol Intake: never Drug use: Never Substance use type: does not use Do you feel safe at home: Yes Do you feel safe in your relationship?: Yes Exam Narrative Exam Narrative: General: Well Developed, Awake and conversant. ANO x2 Skin: Warm and Dry HEENT: Head: No palpable deformities, Normocephalic Eyes: Pupils PERRLA, EOM's intact. No periorbital eccymosis or step off Ears: Canal patent. Tympanic membranes are clear . No lees's sign, no hemptympanum. Nose/Face: Atraumatic. Facial bones nontender to palpation and stable with manipulation. Mouth/Throat: No intraoral trauma. Teeth and mandible are intact. Neck: No midline tenderness, no step off, no deformity to palpation of C-spine. Trachea midline. Chest: No surface trauma. Nontender without crepitus or deformity. Lungs clear to ausculatation bilaterally. Heart: RRR, no rubs, murmurs or gallop. Abdomen: No abrasions, ecchymosis, or surface trauma. Nondistended. Nontender to palpation no guarding, rebound, or rigidity. Pelvis: Nontender to palpation and stable to compression. Femoral pulses strong and equal Extremities: no surface trauma. Sensation intact. Peripheral pulses intact and equal. Neuro: ANO x4, GCS 14, cranial nerves II through XII intact. Motor and sensory exam nonfocal. Reflexes are symmetric. Course Vital Signs Vital signs: Vital Signs Temperature 36.3 C L 09/18/21 19:11 Pulse 70 09/18/21 19:11 Respiratory Rate 13 09/18/21 19:11 Blood Pressure 159/46 H 09/18/21 19:11 Pulse Oximetry 100 09/18/21 19:11 Temperature 36.3 C L 09/18/21 19:11 Pulse 70 09/18/21 19:11 Respiratory Rate 13 09/18/21 19:11 Respiratory Effort 09/18/21 19:11 Blood Pressure 159/46 H 09/18/21 19:11 Blood Pressure Position Supine 09/18/21 19:11 Pulse Oximetry 100 09/18/21 19:11 Oxygen Delivery Method Room Air 09/18/21 19:11 Oxygen Flow Rate 0 09/18/21 19:11
[2021-09-18] MEDS: Octreotide 100 MCG/ML VIAL SC (19:35)
[2021-09-18 19:54] LABS: Abs Immature Grans 0.05 10^3/uL (0.0-0.06); Absolute Basophil Count 0.01 10^3/uL (0.0-0.2); Absolute Eosinophil Count 0.02 10^3/uL (0.0-0.7); Absolute Lymphocyte Count 1.18 10^3/uL (1.2-3.4); Absolute Monocyte Count 0.47 10^3/uL (0.1-0.8); Absolute Neutrophil Count 6.82 10^3/uL (1.2-6.7); Basophils % 0.1; Eosinophils % 0.2; HCT 43.8 % (36.0-46.0); HGB 14.3 g/dL (11.2-15.7); Immature Grans % 0.6; Lymphocytes % 13.8; MCH 30.3 pg (27.0-33.0); MCHC 32.6 % (32.0-36.0); MCV 93 fL (80-95); MPV 9.3 fL (8.0-11.0); Monocytes % 5.5; Neutrophils % 79.8; Platelet Count 216 10^3/uL (130-400); RBC 4.72 10^6/uL (3.93-5.22); RDW 12.7 % (11.7-14.6); WBC 8.55 10^3/uL (4.4-10.8)
[2021-09-18 20:00] LABS: Bilirubin Negative (Negative); Blood Negative (Negative); Clarity Clear (Clear); Glucose 100 mg/dL (Negative); Ketones Negative (Negative); Leukocyte Esterase Negative (Negative); Nitrite Negative (Negative); Urobilinogen 0.2 EU/dL (Up TO 0.2)
[2021-09-18 20:16] LABS: ALT 24 U/L (14-59); AST 17 U/L (15-37); Albumin 3.6 g/dL (3.4-5.0); Alkaline Phosphatase 86 U/L (46-116); Anion Gap 7.6 mmol/L (3-11); BUN 18 mg/dL (7-18); Bilirubin, Total 0.5 mg/dL (0.2-1.0); CO2 30.4 mmol/L (21.0-32.0); CREATININE 1.1 mg/dL (0.55-1.02); Calcium 9.1 mg/dL (8.5-10.1); Chloride 101 mmol/L (98-107); Estimated GFR 48.82 (mL/min/1.73m2); Glucose 122 mg/dL (74-106); Magnesium 2.1 mg/dL (1.8-2.4); Potassium 3.7 mmol/L (3.5-5.1); Sodium 139 mmol/L (136-145); Total Protein 7.3 g/dL (6.4-8.2); Troponin I < 50 ng/L (<or=60)
--- NOTE | 2021-09-18 20:39 | DI.VRAD_ITS ---
PROCEDURE INFORMATION: Exam: CT Head Without Contrast Exam date and time: 09/18/2021 8:11 PM Age: 71 years old Clinical indication: Altered mental status/memory loss; Confusion or disorientation TECHNIQUE: Imaging protocol: Computed tomography of the head without contrast. Radiation optimization: All CT scans at this facility use at least one of these dose optimization techniques: automated exposure control; mA and/or kV adjustment per patient size (includes targeted exams where dose is matched to clinical indication); or iterative reconstruction. COMPARISON: No relevant prior studies available. FINDINGS: Brain: Lamb-white matter differentiation is within normal limits. No mass effect or midline shift. There are mild nonspecific patchy foci of periventricular white matter hypodensity, probably due to chronic microvascular ischemic changes. Sulci and basilar cisterns are prominent due to parenchymal volume loss. No extra-axial fluid collection. Cerebral ventricles: No ventriculomegaly. Paranasal sinuses: Visualized sinuses are unremarkable. No fluid levels. Mastoid air cells: Visualized mastoid air cells are well aerated. Bones/joints: No acute fracture. Soft tissues: Unremarkable. IMPRESSION: No acute intracranial abnormality. Dictated and Authenticated by: Mumtaz Parsons MD. Ordering:LAURENT Munoz MD
--- NOTE | 2021-09-18 20:40 | DI.VRAD_ITS ---
PROCEDURE INFORMATION: Exam: XR Chest Exam date and time: 09/18/2021 8:15 PM Age: 71 years old Clinical indication: Other: Confusion TECHNIQUE: Imaging protocol: Radiologic exam of the chest. Views: 2 views. COMPARISON: XR PORTABLE CHEST AP 09/14/2019 11:13 AM FINDINGS: Lungs: Unremarkable. No consolidation. Pleural spaces: Unremarkable. No pleural effusion. No pneumothorax. Heart/Mediastinum: Unremarkable. No cardiomegaly. Bones/joints: Mild dextroscoliosis of thoracic spine. IMPRESSION: No acute findings. Dictated and Authenticated by: Mumtaz Parsons MD. Ordering:LAURENT Munoz MD
[2021-09-18 23:08] LABS: Troponin I < 50 ng/L (<or=60)
[2021-09-19] VITALS: PULSE 90; RESP 17; O2SAT 95
[2021-09-19 00:35] VITALS: BP 131/82; PULSE 65; RESP 17; TEMP 36.3; O2SAT 95
--- NOTE | 2021-09-19 01:53 | PDOC.MHCN ---
Date of service: 09/19/21 Time of Service: 01:53 Mental Health Crisis Note Presenting Issue How did you arrive at the ED and why did you come: Client arrived via [facility] due to blood sugars being too low. EMT's were concerned for the safety and well being of her children as well as her due to living conditions i.e. roof falling in, floors dirty and sticky and has a 13 year old and a 20 year old non-verbal child living in her care. They reported no running water, pasta but no way to cook it and increased depression since her 2 years ago. Client has continuously refused treatment when offered per the biological daughter Ana Luisa Ansari ([phone]). Precipitating Factors Client would not engage in an assessment. Disposition BEHAVIOR: Agitated by her biological daughter in the room and what the daughter had to share. Daughter, reported that the client has shut her own biological children out even when she was offered to come live with them. EYE CONTACT: fair MOOD: Agitated and uncooperative. She is not willing to stay for an assessment and referrals. AFFECT: Congruent with mood. APPETITE: Client would not engage in an assessment. SLEEP(trouble falling/staying asleep: Client would not engage in an assessment. Plan Client left without assessment so not plan could be made. An APS as well as DCF report have been filed by [facility] and followed up by this clinician. Intake for DCF is [id number]. Elke from DCF reported that the intake was accepted but no FSW has been assigned as of yet but will be in the morning. Signature Clinician's Name/Title: Marcelina Chan MS, [facility] Emergency Services Clinician, [facility]
== END 2021-09-19 00:34 | disposition home or self-care (01) ==
PROVIDERS: Emergency Provider Registered Nurse Emergency; PCP Family Medicine
DX: E11.649 Type 2 diabetes mellitus with hypoglycemia without coma (principal); R41.0 Disorientation, unspecified; Z79.4 Long term (current) use of insulin; Z79.84 Long term (current) use of oral hypoglycemic drugs; I10 Essential (primary) hypertension; F17.210 Nicotine dependence, cigarettes, uncomplicated
CPT/HCPCS: 36415; 80053; 93005; 96372; 99285; 70450; 71046; 81003; 83735; 84484; 85025; 93010; 99284; J2354

== ENCOUNTER 2021-09-29 08:02 | Observation (INO) | payer MEDICARE, MEDICAID, SELFPAY ==
[2021-09-29 08:02] VITALS: BP 161/76; PULSE 97; RESP 16; TEMP 36.3; O2SAT 100
--- NOTE | 2021-09-29 08:15 | RT.EKG_ITS ---
APPROVED REPORT Exam: Resting ECG Reason for Exam: Shortness of breath Patient Location: E HR:88 bpm ECG Measurements Heart Rate 88 AXIS CO [id number] P [id number] QRSd 90 QRS -11 QT 403 T 14 QTc 489 Conclusion Probable underlying sinus rhythm, cannot exclude irregular atrial activity
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
[2021-09-29 08:38] LABS: Abs Immature Grans 0.06 10^3/uL (0.0-0.06); Absolute Basophil Count 0.01 10^3/uL (0.0-0.2); Absolute Eosinophil Count 0.01 10^3/uL (0.0-0.7); Absolute Lymphocyte Count 0.87 10^3/uL (1.2-3.4); Absolute Monocyte Count 0.28 10^3/uL (0.1-0.8); Absolute Neutrophil Count 7.41 10^3/uL (1.2-6.7); Basophils % 0.1; Eosinophils % 0.1; HCT 44.7 % (36.0-46.0); HGB 14.7 g/dL (11.2-15.7); Immature Grans % 0.7; Lymphocytes % 10.1; MCH 30.4 pg (27.0-33.0); MCHC 32.9 % (32.0-36.0); MCV 92 fL (80-95); MPV 9.2 fL (8.0-11.0); Monocytes % 3.2; Neutrophils % 85.8; Platelet Count 275 10^3/uL (130-400); RBC 4.84 10^6/uL (3.93-5.22); RDW 12.8 % (11.7-14.6); RDW-SD 43.3 fL; WBC 8.64 10^3/uL (4.4-10.8)
[2021-09-29 08:56] LABS: ALT 27 U/L (14-59); AST 26 U/L (15-37); Albumin 3.3 g/dL (3.4-5.0); Alkaline Phosphatase 80 U/L (46-116); Anion Gap 7.2 mmol/L (3-11); BUN 12 mg/dL (7-18); Bilirubin, Total 0.4 mg/dL (0.2-1.0); CO2 28.8 mmol/L (21.0-32.0); CREATININE 0.9 mg/dL (0.55-1.02); Calcium 9.4 mg/dL (8.5-10.1); Chloride 107 mmol/L (98-107); Glucose 81 mg/dL (74-106); Magnesium 2.1 mg/dL (1.8-2.4); Potassium 4.5 mmol/L (3.5-5.1); Sodium 143 mmol/L (136-145); Total Protein 7.5 g/dL (6.4-8.2)
[2021-09-29 09:00] LABS: Troponin I < 50 ng/L (<or=60)
[2021-09-29] MEDS: DEXTROSE 5%-0.9% SALINE 1,000 ML 150 ML IV (09:00)
[2021-09-29 09:15] LABS: D-Dimer 799 ng/mlFEU (<500)
--- NOTE | 2021-09-29 10:11 | DI.CT_ITS ---
Exam(s) CT CHEST PE CTA EXAM: CT CHEST PE CTA CLINICAL HISTORY: Shortness of breath, elevated D-dimer. TECHNIQUE: Imaging Protocol: Axial CT angiography was performed with multi-slice acquisition and mu lti-planar reconstructions as well as axial, coronal and sagittal MIP reconstructions. CONTRAST MATERIAL: Intravenous: Omnipaque 350 Contrast volume:78 ml COMPARISON: CT CT ABDOMEN PELVIS W from 05/20/2020 CR,XR XR CHEST 2V PA LATERAL from 09/18/2021 FINDINGS: Pulmonary Arteries: No evidence of filling defect to suggest pulmonary emboli. Tracheobronchial tree: Patent where visualized. Mediastinum and Maureen: No dominant adenopathy or fluid collection. Pulmonary parenchyma: Mild dependent changes and mild respiratory motion. No consolidation or domina nt measurable mass. No visible emphysematous or fibrotic changes. Pleura: No effusion or pneumothorax. Heart: The heart is not dilated. Mild coronary artery calcifications are seen. Aorta: Ascending 3.8 cm. No dissection. Mild calcification. No significant mural thrombus. Upper abdomen: Status post cholecystectomy. Bones: Scoliosis. Severe degenerative changes mid thoracic spine. No compression fractures. IMPRESSION: No evidence of pulmonary embolism or other acute abnormality.. Results of this exam have been verba lly communicated with the emergency department provider. RADIATION DOSE DELIVERED: 393.69mGy.cm Total DLP DATA REPOSITORY: All CT scans at this facility are submitted to the National Radiology Data Registry (NRDR) Dose Index Registry (DIR) with the [employer] (A[employer]). RADIATION OPTIMIZATION: All CT scans at this facility use at least one of these dose optimization te chniques: automated exposure control; mA and/or kV adjustment per patient size (includes targeted exa ms where dose is matched to clinical indication); or iterative reconstruction.
--- NOTE | 2021-09-29 10:30 | RT.EKG_ITS ---
APPROVED REPORT Exam: Resting ECG Reason for Exam: SOB Patient Location: E HR:90 bpm ECG Measurements Heart Rate 90 AXIS MN 141 P 24 QRSd 89 QRS -7 QT 388 T 5 QTc 475 Conclusion Sinus rhythm...normal P axis Low voltage, precordial leads.
[2021-09-29] MEDS: Omnipaque 350 MG/ML 100 ML BTL 78 ML IJ (10:33)
[2021-09-29] MEDS: LORazepam 0.5 MG TAB PO (10:51)
[2021-09-29 11:49] LABS: Troponin I < 50 ng/L (<or=60)
--- NOTE | 2021-09-29 12:18 | NUR.NOTE ---
Nursing Note: Pt info faxed to PCP for follow up in a week or less for Multiple ER visits & Hypoglycemia. Aydee, ED
[2021-09-29] MEDS: Dextrose 50%-Water 25 GM/50 ML SYR IVP (12:35)
[2021-09-29 13:21] VITALS: BP 136/84; PULSE 86; O2SAT 97
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
[2021-09-29 14:20] VITALS: BP 114/63; PULSE 98; RESP 11; TEMP 36.7; O2SAT 100
[2021-09-29 14:24] LABS: Source Nasal/Nares
[2021-09-29 14:25] LABS: COVID-19 PCR Negative (Negative)
[2021-09-29] MEDS: Enoxaparin 40 MG/0.4 ML SYR SC (15:02)
[2021-09-29] MEDS: Normal Saline Flush 10 ML SYR IVP ×2 (15:03→21:22)
[2021-09-29] MEDS: DEXTROSE 10%-WATER 500 ML 50 ML IV (15:43)
[2021-09-29] MEDS: LORazepam 1 MG TAB PO (19:06)
[2021-09-29] MEDS: Fluconazole 100 MG TAB 200 MG PO (19:06)
[2021-09-29 19:30] VITALS: BP 141/65; PULSE 80; RESP 18; TEMP 36.8; O2SAT 98
[2021-09-29] MEDS: Cholecalciferol (Vitamin D3) 1,000 UNIT TAB 1000 UNITS PO (21:22)
[2021-09-29] MEDS: Gabapentin 600 MG TAB PO (21:22)
[2021-09-29 22:54] VITALS: BP 108/67; PULSE 100; RESP 18; TEMP 36.9; O2SAT 92
[2021-09-30] MEDS: DEXTROSE 10%-WATER 500 ML 50 ML IV (02:36)
[2021-09-30 03:10] VITALS: BP 101/65; PULSE 80; RESP 16; TEMP 36.2; O2SAT 95
[2021-09-30 06:14] LABS: Abs Immature Grans 0.01 10^3/uL (0.0-0.06); Absolute Basophil Count 0.02 10^3/uL (0.0-0.2); Absolute Eosinophil Count 0.03 10^3/uL (0.0-0.7); Absolute Lymphocyte Count 2.44 10^3/uL (1.2-3.4); Absolute Monocyte Count 0.41 10^3/uL (0.1-0.8); Absolute Neutrophil Count 2.64 10^3/uL (1.2-6.7); Basophils % 0.4; Eosinophils % 0.5; HCT 33.9 % (36.0-46.0); HGB 11.3 g/dL (11.2-15.7); Immature Grans % 0.2; MCH 30.7 pg (27.0-33.0); MCHC 33.3 % (32.0-36.0); MCV 92 fL (80-95); MPV 9.5 fL (8.0-11.0); Monocytes % 7.4; Neutrophils % 47.5; Platelet Count 208 10^3/uL (130-400); RBC 3.68 10^6/uL (3.93-5.22); RDW 13.2 % (11.7-14.6); RDW-SD 45.1 fL; WBC 5.55 10^3/uL (4.4-10.8)
[2021-09-30 06:29] LABS: Anion Gap 5.6 mmol/L (3-11); BUN 11 mg/dL (7-18); CO2 28.4 mmol/L (21.0-32.0); CREATININE 1.1 mg/dL (0.55-1.02); Calcium 8.4 mg/dL (8.5-10.1); Chloride 109 mmol/L (98-107); Estimated GFR 48.82 (mL/min/1.73m2); Glucose 96 mg/dL (74-106); Sodium 143 mmol/L (136-145)
[2021-09-30 07:41] VITALS: BP 117/72; PULSE 75; RESP 18; TEMP 36.3; O2SAT 96
[2021-09-30] MEDS: Gabapentin 600 MG TAB PO ×2 (08:14→12:32)
[2021-09-30] MEDS: Escitalopram 10 MG TAB 30 MG PO (08:14)
[2021-09-30] MEDS: Losartan 50 MG TAB PO (08:14)
[2021-09-30] MEDS: Furosemide 20 MG TAB PO (08:14)
[2021-09-30] MEDS: Cholecalciferol (Vitamin D3) 1,000 UNIT TAB 1000 UNITS PO (08:15)
[2021-09-30] MEDS: Enoxaparin 40 MG/0.4 ML SYR SC (08:15)
[2021-09-30] MEDS: Potassium Chloride 10 MEQ CAPCR 20 MEQ PO (08:15)
[2021-09-30] MEDS: Normal Saline Flush 10 ML SYR IVP (09:35)
[2021-09-30] MEDS: Fluconazole 100 MG TAB 400 MG PO (11:01)
[2021-09-30 11:18] VITALS: BP 123/67; PULSE 66; RESP 16; TEMP 35.7; O2SAT 100
--- NOTE | 2021-09-30 12:10 | INITIAL_ITS ---
- If Service Date Differs Date of service: 09/30/21 Time of Service: 12:11 Care Management Initial Assess REASON FOR HOSPITALIZATION:: Hypoglycemia PAST MEDICAL HISTORY/PAST SURGICAL HISTORY:: Medical History . Acute UTI. Asthma. Depression. Diabetes mellitus. Fibromyalgia. HTN (hypertension). Hx of hyperlipidemia. Pneumonia. Trochanteric bursitis of left hip (04/20/15). Trochanteric bursitis of right hip (04/20/15). Surgical History . Ganglion cyst. H/O section. History of back surgery. History of hysterectomy. Hx of cholecystectomy PREVIOUS FUNCTIONAL STATUS/SOCIAL/FAMILY SUPPORTS:: Flor resides in [place], [place] in unstable housing per her, and community service reports. Please refer to [employer] ELIZA: Kerri Staley's note from 09/14/21 for details on current social situation. Arrival to ED 09/19/21: EMT's were concerned for the safety and well being of her children as well as her due to living conditions i.e. roof falling in, floors dirty and sticky and has a 13 year old and a 20 year old non-verbal child living in her care. They reported no running water, pasta but no way to cook it and increased depression since her 2 years ago. Client has continuously refused treatment when offered per the biological daughter Ana Luisa Ansari ([phone]). Per [facility] crisis screening note. CURRENT FUNCTIONAL STATUS:: Flor was sitting in her chair when CM met with her. She reported she will be discharging to her daughter's home tomorrow for at least a few days. She also stated she will need a glucometer to test her blood sugars post discharge, CM notified [employer]. Has patient been provided with info about the portal/API?: Yes Did the patient sign up for the portal?: Yes CODE STATUS:: Full Code INSURANCE COVERAGE / FINANCIAL ISSUES:: Medicare. Medicaid CURRENT HOME/COMMUNITY SERVICES/EQUIPMENT:: Referrals completed earlier this month to [facility], [facility] and [employer]. APS and DCF involved per reports. [facility] assessed and completed DCF Intake [id number] on 09/19/21. PRIMARY CARE PHYSICIAN:: Elke Jansen POTENTIAL DISCHARGE NEEDS:: ELIZA referral to re-ingage community based supports. PATIENT/FAMILY EDUCATION NEEDS:: Review of discharge considerations. ANTICIPATED BARRIERS TO DISCHARGE:: None identified; observation stay due to hy poglycemia: A plan for safe discharge was made with her daughter to assure safe living arrangements. Per patient's daughter patient was supposed to stop Lantus injections and only take glipizide. The ED reiterated to stop Lantus and check patient's blood sugars frequently.? The ED also informed the patient due to multiple visits to the emergency department with severely low blood sugar to even hold the glipizide as long as they can check sugars and to allow sugars to be less than 200.? Encouraged to restart medication if sugar continues to be higher than 200 as long as they can monitor glucose.? Patient's daughter clearly states understanding of recommendation.?Pending discharge from the ED, they rechecked a blood sugar and blood sugar was now noted to be at 34 and the patient became somnolent.? She was given 2 Amps of D50 and due to persistent hypoglycemia she was admitted to the medical floor for ?further glucose monitoring. TRANSPORTATION:: RCT or with family. PLAN:: ELIZA referral: Claire states she will review options with Flor. Appears per ELIZA documentation patient has been advocating for help with housing issues since 09/05/21. Flor will discharge to her daughter, Genny's home, likely tomorrow. She will transport via private vehicle with Genny. CM continues to follow.
--- NOTE | 2021-09-30 13:42 | CHAPLAIN ---
Flor was up in the chair when I visited. She told me things are going slow, and began to tell me about issues around housing and family. 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 Arrangements were made for someone to fix it, but it hasn't been done yet. Flor has been referred to [facility], and according to Care Management notes, other social service agencies have been involved. I left when two family members arrived.
--- NOTE | 2021-09-30 14:58 | W.PM.DS.N ---
DS: Diagnosis Discharge Diagnosis (1) Hypoglycemia: Status: Acute (2) Elenita infection, disseminated: Status: Acute (3) DVT prophylaxis: Status: Acute (4) Discharge planning issues: Status: Acute Discharge Plan Disposition Patient Disposition: HOME Condition: Stable Discharge Details Reason For Visit: Hypoglycemia Admit Date/Time: 09/29/21 12:40 Admit Provider: Richar Waters Attending Provider: Richar Waters Primary Care Provider: Elke Jansen V Hospital Course Hospital Course: 71-year-old female presented to the [facility] emergency department 09/29/2021 via EMS with a chief complaint of hypoglycemia and confusion.? Patient was found to have a blood glucose in the 50?s ? given oral glucose.? Her glucose did go up. She denied any headache, back pain, chest pain shortness of breath denied any nausea vomiting diarrhea.? However she was confused and wasn?t able to tell the provider in the ED what medication she takes or if she took her medications, or if she had eaten.?Per EMS questionable living circumstances - they report there was pasta to eat but no milk or any other food and the house was in severe disrepair. There is also a question of whether there is running water in the home. The ED provider spoke with her daughter Genny who was at bedside, she reported she is concerned that the patient is not taking care of herself or her 3 adopted children adequately.? She reported that she does have an 18-year-old adopted daughter who just moved out her name is Sissy.? There is a 20-year-old autistic nonverbal adopted child who is at home and a 13 or 14-year-old male child also at home.? She does reiterate the report that EMS gave the provider about the state of the house.? She reported she does have running water but no active working performing including unable to flush the toilet or take shower bath in the home.? She also reports that the home has a roof that is caving in.? The patient herself states she does not have a working car. When she was reevaluated, she appeared much more alert and oriented, she reported remembering having taken her medications.? She has been to the hospital at least twice in the past three weeks for the same concerns, and both times hypoglycemic.? A report was made with Adult Protective Services and children family services.? Department of children and families is aware of the patient.?EKG in ED NSR, labs other than glucose, unremarkable.? Chest CTA negative for pulmonary embolism or other pulmonary findings.? Troponins were negative. She was admitted to the medical unit for observation and glucose checks.? She was started on D10 IV and monitored overnight.? In the morning it was discontinued. Her blood sugars remained over 100 for the rest of the day. She was discharged to home to stay with her daughter with home health nursing and [employer]. ?? Home Meds and New Rx's Prescriptions: New Inhaler, Assist Devices [Pocket Chamber] 1 ea miscellaneous DIRECTED Qty: 0 0RF fluconazole 200 mg tablet 200 mg PO DAILY 21 Days Qty: 21 0RF (DME) lancets [OneTouch Delica Lancets] 30 gauge misc See Rx Instructions .Route Qty: 100 0RF Rx Instructions: As directed (DME) blood-glucose meter [LoopsterTouch Ultra2 Meter] Misc See Rx Instructions .Route Qty: 1 0RF Rx Instructions: As directed Continued potassium chloride 10 MEQ capsule, extended release 20 meq PO DAILY (DME) FreeStyle Test 1 EACH strip 1 ea Miscellaneous TID gabapentin [Neurontin] 300 MG capsule 600 mg PO QID albuterol sulfate 8.5 GM HFA aerosol inhaler 2 puff Inhalation Q4H PRN cholecalciferol (vitamin D3) 1,000 UNIT capsule 1,000 unit PO TID (DME) lancets [FreeStyle Lancets] 1 EACH misc 1 ea Miscellaneous TID SPACER TEDS DAILY (DME) Freestyle InsuLinx Test Strips 1 EACH strip 1 ea Miscellaneous TID DIABETIC SHOES nystatin 100,000 unit/gram cream 1 applic TOPICAL BID Rx Instructions: APPLY TOPICALLY TO THE AFFECTED AREA TWICE DAILY furosemide [Lasix] 20 mg tablet 20 mg PO DAILY Label Comments: Take 1 tablet by mouth every morning as needed losartan 50 mg Tablet 50 mg PO DAILY nortriptyline 10 mg Capsule 10 mg PO QHS ibuprofen 600 mg Tablet 600 mg PO TID PRN escitalopram oxalate [Lexapro] 20 mg Tablet 30 mg PO DAILY memantine [Namenda XR] 7 mg Capsule,Sprinkle,Er 24hr 7 mg PO DAILY lidocaine HCl [Lidocaine Plus] 4 % Cream 1 applic topical QID PRN PRN lorazepam 0.5 mg Tablet 0.5 mg PO BID PRN Held glipizide 10 mg tablet 10 mg PO BID Hold Instructions: Please check blood sugars in the morning, at each meal, and before bed if less than 200 please hold off on any diabetic medications Discontinued Tradjenta 5 mg tablet 5 mg PO DAILY insulin glargine [Lantus Solostar U-100 Insulin] 100 unit/mL (3 mL) Insulin Pen 10 unit SUBCUT QHS Discharge Instructions Instructions: Fluconazole (By mouth), Hypoglycemia in a Person with Diabetes (ED), Benign Paroxysmal Positional Vertigo (DC), Skin Yeast Infection (ED), What to Do if Your Blood Sugar is Low (ED) Additional Instructions: I feel that your low blood sugar is secondary to food intake along with your diabetes medications. As directed by your primary care provider please stop your injectable insulin and it is recommended currently to hold your glipizide as long as you can check your fingerstick blood sugars before each meal and before bed. If your sugars are less than 200 it is okay to continue to hold this medication otherwise if your sugars are above 200 please start the glipizide 10 mg twice daily and continue to monitor sugars closely. It is very important that you follow-up with your primary care provider for further discussion of medications. Also given your social situation please follow-up with economic services to see what resources are available to help with your housing situation Take fluconozale one daily until they are gone for your yeast infection. Practice good personal hygiene. Discuss years of feeling off balance with your PCP, like you said it might be vertigo, but it also could be something else. Frequent snacks until glucose is stable Stand Alone Forms: Nursing Discharge Form Referrals: Elke Jansen MD [Primary Care Provider] - 10/07/21 11:30 am Activity:: Activity as Tolerated Equipment/Supplies:: No Equipment Needed Diet:: Carb Counting Discharge Orders Discharge Orders: Discharge Order (Routine); Ordered 09/30/21 Ordered By: Rsoie Manrique Discharge Data Discharge Date/Time-TO BE ENTERED AT DEPARTURE: 09/30/21 17:01 DS: Summary Time Spent with Patient providing and/or coordinating discharge services: Greater than 30 minutes Status at Discharge Functional status at discharge: independent ambulation Overall status at discharge: patient is progressing back to baseline Mental Status: mental status grossly normal Speech and Movement: speech and movement normal Mood: congruent mood Affect: normal affect Exam Psych Mental Status: mental status grossly normal Speech and Movement: speech and movement normal Mood: congruent mood Affect: normal affect DS: Data Vitals/I&O Vitals and I&O: Vital Signs Temperature 35.7 C L 09/30/21 11:18 Temperature Source Tympanic 09/30/21 11:18 Pulse 66 09/30/21 11:18 Pulse Rhythm Regular 09/30/21 09:29 Respiratory Rate 16 09/30/21 11:18 Respiratory Effort Non-Labored 09/30/21 09:29 Respiratory Depth Normal 09/30/21 09:29 Respiratory Pattern Normal 09/30/21 09:29 Blood Pressure 123/67 09/30/21 11:18 Blood Pressure Position Sitting 09/29/21 08:02 Pulse Oximetry 100 09/30/21 11:18 Oxygen Delivery Method Room Air 09/30/21 11:18 Oxygen Flow Rate 0 09/30/21 11:18 Pain Level 0 09/30/21 11:18 Intake & Output 09/29/21 09/30/21 09/30/21 23:59 11:59 23:59 Intake Total 1100 / 1100 1080 / 1360 280 / 1360 Output Total 250 / 250 2600 / 2600 Balance 850 / 850 -1520 / -1240 280 / -1240 Weight 91.626 kg Intake: IV 1000 / 1000 500 / 500 Oral 100 / 100 580 / 860 280 / 860 Output: Urine 250 / 250 2600 / 2600 Other: Urine Color Pale Straw Yellow Urine Appearance Clear Clear Clear Urine Odor Normal Comment missed hat unable to measure Stool Size Moderate Stool Characteristics Liquid Voiding Methods Bedside Commode Bedside Commode Toilet Data Completed and Pending Labs on day of discharge: Labs from last 24 hours 09/30/21 09/30/21 05:30 05:30 WBC 5.55 RBC 3.68 L Hgb 11.3 D Hct 33.9 L MCV 92 MCH 30.7 MCHC 33.3 RDW 13.2 Plt Count 208 MPV 9.5 Immature Gran % 0.2 Neutrophils % 47.5 Lymphocytes % 44.0 Monocytes % 7.4 Eosinophils % 0.5 Basophils % 0.4 Nucleated RBC % 0.0 Absolute Neutrophils 2.64 Absolute Lymphocytes 2.44 Absolute Monocytes 0.41 Absolute Eosinophils 0.03 Absolute Basophils 0.02 Sodium 143 Potassium 4.0 Chloride 109 H Carbon Dioxide 28.4 Anion Gap 5.6 BUN 11 Creatinine 1.1 H Estimated GFR/1.73 m2 48.82 Glucose 96 Calcium 8.4 L PFSH All Active Problems (Updated 09/29/21 @ 15:59 by Rosie Manrique NP) DVT prophylaxis (Acute) Discharge planning issues (Acute) Elenita infection, disseminated (Acute) Cellulitis of left abdominal wall (Acute) Hypoglycemia (Acute) Vidal blood in stool (Acute) Delirium (Acute) SIRS (systemic inflammatory response syndrome) (Acute) Electrolyte abnormality (Acute) Medical History Acute UTI Asthma Depression Diabetes mellitus Fibromyalgia HTN (hypertension) Hx of hyperlipidemia Pneumonia Trochanteric bursitis of left hip (04/20/15) Trochanteric bursitis of right hip (04/20/15) Surgical History Ganglion cyst H/O section History of back surgery History of hysterectomy Hx of cholecystectomy Social History Smoking/Tobacco Use Status: Current every day Tobacco Type: cigarettes Smoking risk assessment performed?: Yes Alcohol Intake: never Drug use: Never Substance use type: does not use Do you feel safe at home: Yes Do you feel safe in your relationship?: Yes
[2021-09-30 15:06] VITALS: BP 134/84; PULSE 72; RESP 16; TEMP 35.7; O2SAT 100
--- NOTE | 2021-09-30 17:35 | PDOC.HHF2F_ITS ---
Home Health Certification Home Health Certification: 1. Encounter Date and Reason I certify that Flor Cox was seen by Rosie Manrique NP on 09/30/21 and that I had a [id number] encounter with this patient that meets the physician face to face encounter requirements. 2. Clinical Findings Supporting Skilled Need and Homebound Status I certify that home health services are medically necessary, include either intermittent nursing home and/or physical/speech therapy, and that this patient is homebound in that absences from the home require considerable and taxing effort and are infrequent or of short duration, or are attributable to the need to receive medical care. [X] (a) Attached documentation from encounter provides clinical findings supporting skilled need and homebound status (including what assistance patient requires to leave the home). The encounter with the patient was in whole, or in part, for the following medical condition, which is the primary reason for home health care:? Hypoglycemia Half-Way:? Teaching the use of a glucometer, diabetic medication administration, teach signs, symptoms and interventions for hypo and hyperglycemia; healthy ADA diet, skin care, foot care and exercise. BRICK AND TILE MAKING MACHINE OPERATOR:? Perform a comprehensive assessment of the patient?s support needs, challenges, and goals and provide information regarding necessary resources to foster independence and safety. Homebound:? My clinical findings from this encounter support the patient is homebound due to absences from home require considerable and taxing effort, are infrequent or of short duration, or are attributable to the need to receive health care. 3. Certification and Authentication I certify that I composed the above information based on my clinical judgement relating to this patient's medical condition and, if applicable, clinical findings communicated to me by the NPP or inpatient physician who performed the Home Health Referral. All further orders will be obtained through Elke Jansen MD
== END 2021-09-30 17:01 | disposition home or self-care (01) ==
LOC: ER 12:40 → MS 13:31
PROVIDERS: Nurse Practitioner Family; Admitting Provider Internal Medicine; Emergency Provider Nurse Practitioner Family; PCP Family Medicine; Visit Provider Internal Medicine
DX: E11.649 Type 2 diabetes mellitus with hypoglycemia without coma (principal); R41.0 Disorientation, unspecified; J45.909 Unspecified asthma, uncomplicated; F32.A Depression, unspecified; M79.7 Fibromyalgia; I10 Essential (primary) hypertension; E78.5 Hyperlipidemia, unspecified; F17.210 Nicotine dependence, cigarettes, uncomplicated; B37.2 Candidiasis of skin and nail; Z20.822 Contact with and (suspected) exposure to COVID-19
CPT/HCPCS: 36410; 36415; 36416; 71275; 80048; 80053; 82962; 87635; 93005; 96360; 96361; 96372; 99285; J1650; 81003; 83735; 84484; 85025; 85049; 85379; 93010; 99217; 99219; G0378; J3490; J7042

== ENCOUNTER 2022-09-11 12:18 | Outpatient (REF) | payer MEDICARE, MEDICAID, SELFPAY ==
[2022-09-11 16:18] LABS: HCT 38.5 % (36.0-46.0); HGB 12.2 g/dL (11.2-15.7); MCH 30.1 pg (27.0-33.0); MCHC 31.7 % (32.0-36.0); MCV 95 fL (80-95); MPV 9.3 fL (8.0-11.0); Platelet Count 180 10^3/uL (130-400); RBC 4.05 10^6/uL (3.93-5.22); RDW 13.1 % (11.7-14.6); RDW-SD 45.6 fL; WBC 5.51 10^3/uL (4.4-10.8)
== END 2022-09-11 12:19 | disposition home or self-care (01) ==
LOC: NCHCN 12:18
PROVIDERS: PCP Family Medicine; Visit Provider Family Medicine
DX: K62.5 Hemorrhage of anus and rectum (principal)
CPT/HCPCS: 85027